=== PATIENT | male | born 2000 | race Caucasian/White ===

== ENCOUNTER 2023-04-11 13:03 | Outpatient (CLI) | payer OTHER, BC, SELFPAY | END 2023-04-11 13:04 | disposition home or self-care (01) | LOC: RAD 13:04 | PROVIDERS: Visit Provider Internal Medicine | DX: I48.91 Unspecified atrial fibrillation (principal); R00.2 Palpitations | CPT/HCPCS: 93306 ==

== ENCOUNTER 2024-12-14 12:13 | Emergency (ER) | payer OTHER, SELFPAY ==
--- OUTSIDE RECORDS SUMMARY | 2024-12-14 12:15 | XMS_ITS | Encounter Summary ---
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 Date/Time Encounter Type Encounter Description Reason Provider Source Jul 06, 2024 11:30 AM OFFICE O/P EST MOD 30 MIN [facility] ICD-10-CM F41.1 Generalized anxiety disorder DAVID TREVINO Encounter Template Text not used by [place] Assessments - Encounter Diagnoses This section includes the primary and secondary diagnoses documented for the Encounter. Date/Time Primary/Secondary Diagnosis Diagnosis Name Provider Source Jul 06, 2024 12:09 PM PRIMARY Generalized anxiety disorder [facility] Jul 06, 2024 12:09 PM SECONDARY Alcohol abuse, uncomplicated [facility] Jul 06, 2024 12:09 PM SECONDARY Major depressive disorder, single episode, unspecified DAVID TREVINO [facility] Plan of Treatment: Future Appointments (+ 6 months) and Future Tests (+/- 45 days) The Plan of Treatment section includes future care activities for the patient from all [place] treatmentfacilities. This section includes future appointments and future orders which are active, pending or scheduled. Future Appointments This section includes appointments that were scheduled to occur 6 months from the date of the Encounter, up to a maximum of 20 appointments. The data comes from all [place] treatment facilities. Appointment Date/Time Appointment Type Appointme nt Facility Name Jul 07, 2024 08:00 AM [facility] Aug 21, 2024 08:00 AM [facility] Aug 21, 2024 02:00 PM [facility] Oct 21, 2024 08:00 AM [facility] Social History: Smoking Status (Most current) and Tobacco Use (All prior to encounter date) This section includes the most current, and the historical, smoking and tobacco- related health factors from the [place] facility where the Encounter took place. Current Smoking Status This section includes the most current smoking, or tobacco-related health factor, from the [place] facility where the Encounter took place. Date/Time Current Smoking Status Comment Facil ity Jun 30, 2024 12:30 PM VA-TOBACCO USE FORMER CIGARETTES [facility] Tobacco Use History This section includes a history of the smoking, or tobacco-related health factors, that were collected on or before the date of the Encounter. The data comes from the [place] facility where the Encounter took place. Date/Time Smoking Status/Tobacco Use Comment F acility Jun 30, 2024 12:30 PM VA-TOBACCO USE EVERY DAY OTHER T [facility] Jun 30, 2024 12:30 PM VA-TOBACCO USE FORMER CIGARETTES [facility] Feb 27, 2023 10:00 AM VA-TOBACCO FORMER USER [facility] Feb 27, 2023 10:00 AM VA-TOBACCO QUIT < 1 YEAR [facility] Encounter Notes: All associated encounter notes This section contains the clinical notes associated to the Encounter. Date/Time Encounter Note(s) Provider Source Jul 06, 2024 06:48 AM PSYCHIATRY E & M N OTE: LOCAL TITLE: PSYCHIATRIC EVALUATION & MANAGEMENT STANDARD TITLE: PSYCHIATRY E & M NOTE DATE OF NOTE: JUL 06, 2024@06:48 ENTRY DATE: JUL 06, 2024@06:48:24 AUTHOR: DAVID TREVINOIGNER: URGENCY: STATUS: COMPLETED PSYCHIATRIC EVALUATION AND MANAGEMENT FOLLOW UP VISIT Duration: 30 minutes Time spent performing psychotherapy services: 16-30 minutes Visit conducted by [place] [facility] synchronous telehealth. verbal consent obtained. Location/emergency number confirmed. Environment surveyed and all participants identified. Virtual conference room locked. IDENTIFICATION: 23 year old [place] (50% MDD) male kept appt in [facility] clinic for voluntary psychiatric med management/supportive therapy follow up last appt Jun 03. The electronic medical record was reviewed. Medication list reviewed/reconciled with . DIAGNOSIS: MIKE MDD Alcohol abuse HISTORY: with history MIKE/MDD. Initial CVT appt this psychiatrist May 04. 14 May 04 [place] State prescription monitoring site reviewed: No problematic activity noted. At last appt shared tapered to 10mg starting to notice some positive change. interest in playing video games is returning starting to play again and enjoying the games. completed sleep med questionnaire and returned yet to hear from them encouraged him to call them today. sleep continues to be non- restorative. He shared mood has been ok, anxiety still present. No abnormal involuntary muscle movements. Discussed has only been about 3 weeks since last appt and too early for med to be at peak benefit but encouraging that already noted change. Plan was to continue Escitalopram targeting anxiety and depression. expect further sx improvement in next 6 weeks, he will contact sleep med to continue workup. INTERVAL HISTORY: Jul 04 sleep med: mild DC recommended oral device Jul 04 [facility] NO SHOW Jul 05 pt contact: Check out sheet notes would like treatment for AUD. Agreed to discuss at next psychiatric appt Signed in early seen early At appt shared SSRI seemed to lose efficacy few weeks after initial benefit but chose to just take daily and wait to see. now feels that there is no benefit for anxiety and low mood. He has also had difficulty in relationship attrbutes to alcohol use she has told wy if he continues may end the relationship. No abnormal involuntary muscle movements. he describes chronic back and knee/feet pain with tingling and numbness also there.he has been drinking 3-4 seltzers 3-4x a week and on [facility] birthday used whiskey about 1/4 bottle stated was very drunk. he is interested in abstaining from alcohol or at least to minimize use. wants naltrexone trial. discussed importance to treat CD/he will contact sleep med for appt/referral for dental device. we discussed SSRI increase vs switch to SNRI he preferred SNRI trial. Sturkie agreed to [facility] follow up. GOALS: decrease anxiety resolve depression improve attention Current Symptoms: Sleep hours to fall asleep then not restorative hx sleep apnea/no nightmares, interest dulled, energy low, concentration hard to stay on task, appetite stable/weight stable. Chronic problematic worry, some muscle tension, some irritability. No SI/HI at this time/no history. weights and treadmill hour near daily exercise, vapes but no tobacco products, green tea or black tea once daily/no other caffeine products,3-4 drinks 3-4x weel hx problematic use, no use of recreational drugs/hx cannabis. Psych History: Apr 03 initial psychology [facility] dx MIKE and MDD No history of suicide attempts/no hospitalizations. 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 CURRENT MEDICATIONS: Active Outpatient Medications (including Supplies): Outpatient Medications Status ===== 1) CELECOXIB 200MG CAP TAKE ONE CAPSULE BY MOUTH EVERY ACTIVE DAY NEEDED FOR PAIN 2) CHOLECALCIF 25MCG (D3-1,000UNIT) TAB TAKE ONE TABLET ACTIVE BY MOUTH EVERY DAY VITAMIN D DAILY IN winter 3) DULOXETINE HCL 30MG EC CAP TAKE ONE CAPSULE BY MOUTH PENDING EVERY DAY FOR 10 DAYS, THEN TAKE TWO CAPSULES EVERY DAY 4) FLUTICASONE PROP 50MCG 120D NASAL INHL SPRAY 2 SPRAYS ACTIVE IN EACH NOSTRIL EVERY DAY NEEDED FOR CONGESTION 5) LORATADINE 10MG TAB TAKE ONE TABLET BY MOUTH EVERY ACTIVE DAY NEEDED FOR ALLERGIES 6) MULTIVITAMIN CAP/TAB TAKE 1 TABLET BY MOUTH EVERY DAY ACTIVE FOR SUPPLEMENT 7) NALTREXONE (EQV-REVIA) 50MG TAB TAKE ONE TABLET BY PENDING MOUTH EVERY DAY 8) NICOTINE POLACRILEX 2MG LOZENGE DISSOLVE 1 LOZENGE IN ACTIVE MOUTH EVERY 4 HOURS NEEDED TO QUIT TOBACCO 9) OMEPRAZOLE 20MG EC CAP TAKE ONE CAPSULE BY MOUTH ACTIVE EVERY DAY NEEDED FOR HEARTBURN Side Effects: denied Treatment Adherence: yes has phone reminder MEDICATION RECONCILIATION: At this visit reviewed the relevant medication list and communicated relevant medication updates with the patient/surrogate. MOST RECENT VITALS: Blood Pressure: 110/72 (06/30/2024 12:37) Pulse: 70 (06/30/2024 12:37) Temperature: 97.1 F [36.2 C] (06/30/2024 12:37) Weight: 221.2 lb [100.33 kg] (06/30/2024 12:37) Body Mass Index: 32.3 LABS REVIEWED THIS VISIT: Mar 03 AST 77/ALT 250 high, Vit D low 9, Mar 03 TSH normal range MUSCULOSKELETAL: Gait: not visible on video MENTAL STATUS EXAM: Alert and oriented to person, place and time. Appropriately groomed, appropriately dressed and appeared stated age. Did not appear to be in any acute distress or show any external indications of pain. appeared tired, able to stay on conversation, talkative, cooperative, and maintained good eye contact. Speech: normal rate/volume. Psychomotor activity: no agitation or slowing, no tics, tremors or other abnormal involuntary movements. Affect: restricted but reactive Mood: anxious. No suicidal or homicidal ideation. Thought processing: linear, logical, goal directed. Insight and judgment: intact. Risk assessment/category: Risk factors: MIKE, depression, sleep apnea, male, limited social support, relationship strain. Protective factors: no current or hx SI/HI, no intent, no plan, not option, no hx impulsive behavior, no legal issues, no financial issues, no significant loss, desire to live, be there for family, willing to seek help, motivated for treatment. PERCEIVED ACUTE SUICIDE RISK: Low acute - No current intent or recent suicide preparatory behaviors. Protective factors and coping strategies are present. PERCEIVED CHRONIC SUICIDE RISK: Low Chronic - Can identify strengths, activate and utilize resources, does not have chronic suicidal ideation or history of self-directed violence. Review of Systems: no complaints, except as above. ASSESSMENT: Sturkie with history of chronic anxiety and recurrent depression no past treatment, Apr 03 started individual therapy. Escitalopram lost efficacy for mood and anxiety. 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 AUD, hx cannabis use disorder, hx tobacco use disorder, no other chemical dependency issues. No genetic predisposition both bio-parents AUD. PATIENT EDUCATION provided this visit: Participate(s): Patient General Medication Education Participate(s) has been educated about the purpose of their medications, and the dose/frequency. They understood the risks and benefits of the medications as explained. They verbally agree to take the medications as prescribed and to inform me or other physicians if there are side effects, and to seek emergency medical care if serious side effects develop such as an allergic reaction, chest pain, or difficulty breathing. They were attentive during discussion, was given the opportunity to ask questions and verbalized understanding. Participant(s) indicates readiness to learn, verbalizes understanding, agreement and satisfaction with the treatment plan. Denies further questions. TREATMENT PLAN: Reviewed with treatment plan and medications. Risks benefits and side effects discussed including risk of suicidal ideation/behavior when starting new med, no opiates with naltrexone. Sturkie voiced understanding, agreed to continue treatment, and will notify if experiences any problems with medication. After discussion of options with we agreed to taper off Escitalopram and start Duloxetine targeting anxiety and depression and neuropathic pain, start Naltrexone for alcohol craving. agrees to take medication on daily basis and share benefits and side effects with provider. will maintain stable non-depressed mood, resolution of problematic worry/muscle tension/irritability, and maintain 6-8 hours restful sleep for 6/7 days a week with minimal disruption in daily activities 80% of time. Escitalopram 10mg daily until duloxetine increases to 60mg then reduce to 5mg a day for 10 days then stop Duloxetine 30mg a day for 10 days then increase to 60mg daily #120 rf=0 Naltrexone 50mg a day for alcohol craving #90 rf=1 Labs: none Return to [facility] clinic in 6 weeks (his preference) or sooner, if any problems arise. Reviewed crisis management and contact information. -------- TREATMENT PLAN / EDUCATION / SAFETY -------- Treatment goals are 1) to minimize and manage medication side effects, 2) decrease problematic symptoms and optimize wellness. Patient's overall Mental Health Treatment reviewed. Patient continues to benefit from psychiatric medications as documented. The patient has been told the purpose and side effects of the prescribed psychiatric medications. Supportive therapy to optimize wellness, including medications, will be done as indicated during visits by psychiatrist, and RN. Patient agrees to contact this clinic with any concerns prior to next appointment. Patient is aware of additional MH services that are available, including emergency room and [facility] options. This plan will be reviewed yearly with patient, or sooner if needs change. This plan was discussed with the patient who acknowledges agreement and understanding. /kun/ DAVID TREVINO MD PSYCHIATRIST Signed: 07/06/2024 12:09 DAVID TREVINO [facility]
--- OUTSIDE RECORDS SUMMARY | 2024-12-14 12:15 | XMS_ITS | Encounter Summary ---
Author Name [facility] [place] [facility] [place] Address [address] [place] [address] Care Team Providers Care Floriculturist Name Role Phone FERRARALALY Primary Care Provider Unavailabl e Selected Encounter This section includes the information on record at [place] for the Encounter. Date/Time Encounter Type Encounter Description Reason Provider Source Oct 21, 2024 08:00 AM PSYTX W PT W E/M [facility] - IND ICD-10-CM F41.1 Generalized anxiety disorder DAVID TREVINO Encounter Template Text not used by [place] Assessments - Encounter Diagnoses This section includes the primary and secondary diagnoses documented for the Encounter. Date/Time Primary/Secondary Diagnosis Diagnosis Name Provider Source Oct 21, 2024 08:44 AM PRIMARY Generalized anxiety disorder [facility] Oct 21, 2024 08:44 AM SECONDARY Alcohol abuse, uncomplicated [facility] Oct 21, 2024 08:44 AM SECONDARY Major depressive disorder, single episode, unspecified [facility] Plan of Treatment: Future Appointments (+ 6 months) and Future Tests (+/- 45 days) The Plan of Treatment section includes future care activities for the patient from all [place] treatmentfacilities. This section includes future appointments and future orders which are active, pending or scheduled. Future Appointments This section includes appointments that were scheduled to occur 6 months from the date of the Encounter, up to a maximum of 20 appointments. The data comes from all [place] treatment facilities. Appointment Date/Time Appointment Type Appointme nt Facility Name Jan 19, 2025 08:00 AM AM[facility] - [facility] Active, Pending, and Scheduled Orders This section includes a listing of several types of active, pending, and scheduled orders, including clinic medications orders, diagnostic test orders, procedure orders and consult orders; where the start date of the order is 45 days before the date of the Encounter or 45 days after the date of theEncounter. The data comes from all [place] treatment facilities. Test Date/Time Test Type Test Details Facility Name Sep 28, 2024 12:00 AM Laboratory - Chemi stry Order BASIC METABOLIC PANEL+MG PLASMA SP ONCE [facility] Sep 28, 2024 12:00 AM Laboratory - Chemi stry Order LIPID PANEL,NON-FASTING PLASMA SP [facility] Sep 28, 2024 12:00 AM Laboratory - Chemi stry Order TSH W/REFLEX TO FREE T4 PLASMA [facility] Sep 28, 2024 12:00 AM Laboratory - Chemi stry Order URIC ACID PLASMA [facility] Sep 28, 2024 12:00 AM Laboratory - Chemi stry Order AST/SGOT PLASMA [facility] Sep 28, 2024 12:00 AM Laboratory - Chemi stry Order ALT/SGPT PLASMA [facility] Sep 28, 2024 12:00 AM Laboratory - Chemi stry Order CBC & DIFF BLOOD [facility] Social History: Smoking Status (Most current) and Tobacco Use (All prior to encounter date) This section includes the most current, and the historical, smoking and tobacco- related health factors from the [place] facility where the Encounter took place. Current Smoking Status This section includes the most current smoking, or tobacco-related health factor, from the [place] facility where the Encounter took place. Date/Time Current Smoking Status Comment Facil ity Jun 30, 2024 12:30 PM VA-TOBACCO USE FORMER CIGARETTES [facility] Tobacco Use History This section includes a history of the smoking, or tobacco-related health factors, that were collected on or before the date of the Encounter. The data comes from the [place] facility where the Encounter took place. Date/Time Smoking Status/Tobacco Use Comment F acility Jun 30, 2024 12:30 PM VA-TOBACCO USE EVERY DAY OTHER T YPE [facility] Jun 30, 2024 12:30 PM VA-TOBACCO USE FORMER CIGARETTES [facility] Feb 27, 2023 10:00 AM VA-TOBACCO FORMER USER [facility] Feb 27, 2023 10:00 AM VA-TOBACCO QUIT < 1 YEAR [facility] Encounter Notes: All associated encounter notes This section contains the clinical notes associated to the Encounter. Date/Time Encounter Note(s) Provider Source Oct 21, 2024 06:36 AM PSYCHIATRY E & M N OTE: LOCAL TITLE: PSYCHIATRIC EVALUATION & MANAGEMENT STANDARD TITLE: PSYCHIATRY E & M NOTE DATE OF NOTE: OCT 21, 2024@06:36 ENTRY DATE: OCT 21, 2024@06:36:38 AUTHOR: DAVID TREVINOER: URGENCY: STATUS: COMPLETED PSYCHIATRIC EVALUATION AND MANAGEMENT FOLLOW UP VISIT Duration: 30 minutes Time spent performing psychotherapy services: 16-30 minutes Visit conducted by [place] [facility] synchronous telehealth. Garrison verbal consent obtained. Location/emergency number confirmed. Environment surveyed and all participants identified. Virtual conference room locked. IDENTIFICATION: 24 year old [place] (50% MDD) male kept appt in [facility] clinic for voluntary psychiatric med management/supportive therapy follow up last appt Sep 05. The electronic medical record was reviewed. Medication list reviewed/reconciled with . DIAGNOSIS: MIKE MDD Alcohol abuse HISTORY: with history MIKE/MDD. Initial CVT appt this psychiatrist May 04. May 04 [facility] prescription monitoring site reviewed: No problematic activity noted. At last appt shared has not been taking the naltrexone regularly stated holidays and family get togethers involve alcohol, since then has noted drinking has decreased about 50% w/o naltrexone. he wants to keep med active as yet to decide if wants to be more aggressive to control use. switched to duloxetine has been noting improvement in mood and anxiety over time, still not back to normal but better. Not sleeping well, not restorative finds tired w/o cause and lacking motivation/discussed impact untreated DC/he requested sleep med number and will call for appt as last note indicated plan for him to sit down with provider to discuss treatment. he preferred no med changes at this time/likely further benefit with duloxetine over next 6 weeks. Plan was to continue Duloxetine targeting anxiety and depression and neuropathic pain, Naltrexone for alcohol craving. INTERVAL HISTORY: Oct 06 clinical triage: Roopa would like to discuss with his MH provider new symptoms where he is noticing anger issues appearing x3 weeks now without alcohol involvement. states he is finding it hard to hold back comments to peers but denies issues with superiors. Roopa has decreased his alcohol intake since last visit, states his anxiety is about the same - steady flow but feels that he is able to deal with it at present, and depression that is about the same or slightly improved - stating not currently on his mind that much since his feelings of wishing he was or could go to sleep and not wake up - which last occurred about a couple weeks before last talk with Dr. Caba. Roopa states he is getting about 5-6 hours of sleep at night and sometimes feels like it's enough other times still tired and has been taking gummies with THC 1-2 every 2 weeks or less which helps with his sleep but causes him to feel groggy in the morning but reports it does help with anxiety and panic attacks. [facility] in mood and anxiety with duloxetine at 60mg, still uses THC gummy for break through anxiety in evening prior to sleep still gets angry at others with little provocation/no violence. not using etoh not using naltrexone will remove from active list. Has tried duloxetine 90mg in past did not tolerate/discussed options will retry 90mg dose/if not tolerated add aripiprazole. No abnormal involuntary muscle movements. Roopa agreed to [facility] follow up. GOALS: decrease anxiety resolve depression improve attention Current Symptoms: Sleep hours to fall asleep then not restorative mild DC/no nightmares, interest ok, energy better, concentration better, appetite stable/weight down 8lbs trying. some anxiety with worry, some muscle tension, still with irritability. No SI/HI at this time/no history. weights and treadmill hour near daily exercise, vapes but no tobacco products, green tea or black tea once daily/no other caffeine products, last use over a month ago history of 3-4 drinks 3-4x week past problematic use, no use of recreational drugs/past cannabis. Psych History: Apr 03 initial psychology [facility] diagnosed MIKE and MDD. No history of suicide attempts/no hospitalizations. 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 CURRENT MEDICATIONS: Active Outpatient Medications (including Supplies): Outpatient Medications Status 1) CELECOXIB 200MG CAP TAKE ONE CAPSULE BY MOUTH EVERY DAY ACTIVE NEEDED Indication: FOR PAIN 2) CHOLECALCIF 25MCG (D3-1,000UNIT) TAB TAKE ONE TABLET BY ACTIVE MOUTH EVERY DAY VITAMIN D DAILY IN WINTER MONTHS Indication: FOR VITAMIN D 3) DULOXETINE HCL 30MG EC CAP TAKE THREE CAPSULES BY MOUTH ACTIVE EVERY DAY Indication: FOR ANXIETY 4) FLUTICASONE PROP 50MCG 120D NASAL INHL SPRAY 2 SPRAYS IN ACTIVE EACH NOSTRIL EVERY DAY NEEDED Indication: FOR CONGESTION 5) LORATADINE 10MG TAB TAKE ONE TABLET BY MOUTH EVERY DAY ACTIVE NEEDED Indication: FOR ALLERGIES 6) MULTIVITAMIN CAP/TAB TAKE 1 TABLET BY MOUTH EVERY DAY ACTIVE Indication: FOR SUPPLEMENT 7) NICOTINE POLACRILEX 2MG LOZENGE DISSOLVE 1 LOZENGE IN MOUTH ACTIVE EVERY 4 HOURS NEEDED Indication: TO QUIT TOBACCO 8) OMEPRAZOLE 20MG EC CAP TAKE ONE CAPSULE BY MOUTH EVERY DAY ACTIVE NEEDED Indication: FOR HEARTBURN Side Effects: denied Treatment Adherence: as above MEDICATION RECONCILIATION: At this visit reviewed the [...] D low 9, Mar 03 TSH normal range. MUSCULOSKELETAL: Gait: not visible on video MENTAL STATUS EXAM: Alert and oriented to person, place and time. Appropriately groomed, appropriately dressed and appeared stated age. Did not appear to be in any acute distress or show any external indications of pain. appeared tired, pleasant, attentive, cooperative, and maintained good eye contact. Speech: normal rate/volume. Psychomotor activity: no agitation or slowing, no tics, tremors or other abnormal involuntary movements. Affect: restricted but reactive Mood: ok. No suicidal or homicidal ideation. Thought processing: linear, logical, goal directed. Insight and judgment: intact. Risk assessment/category: Risk factors: MIKE, depression, sleep apnea, male, limited social support, relationship strain. Protective factors: no current or past SI/HI, no intent, no plan, not option, no history impulsive behavior, no legal issues, no financial [...] Systems: no complaints, except as above. ASSESSMENT: with history of chronic anxiety and recurrent depression no past treatment, Apr 03 started individual therapy. Escitalopram lost efficacy for mood and anxiety, partial benefit duloxetine 60mg. 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 AUD, history cannabis use disorder and tobacco use disorder, no other chemical dependency [...] PLAN: Reviewed with treatment plan and medications. voiced understanding, agreed to continue treatment, and will notify if experiences any problems with medication. After discussion of options with we agreed to continue Duloxetine targeting anxiety and depression and neuropathic pain retry 90mg dose. if not tolerated would add Aripiprazole low dose. Garrison agrees to take medication on daily basis and share benefits and side effects with provider. Garrison will maintain stable non-depressed mood, resolution of problematic worry/muscle tension/irritability, and maintain 6-8 hours restful sleep for 6/7 days a week with minimal disruption in daily activities 80% of time. Duloxetine 30mg take 90mg daily adequate supply Labs: none Return to [facility] clinic in 6 weeks (his preference) or sooner, if any problems arise. Reviewed crisis management and contact information. -------- MH TREATMENT PLAN / EDUCATION / SAFETY -------- [...] understanding. /kun/ DAVID TREVINO MD PSYCHIATRIST Signed: 10/21/2024 08:44 DAVID TREVINO [facility]
--- OUTSIDE RECORDS SUMMARY | 2024-12-14 12:16 | XMS_ITS | Continuity of Care Document ---
Author Name [facility] Organization [facility] Care Team Providers Care Extern Name Role Phone [facility] Unavailable Unavailable Problems Combined list of problems from Department of Defense and Veterans Affairs facilities. It does not include entries that were removed or entered in error. Problem Status Onset Date Problem Type Date of Resolution Comments Source Paroxysmal Atrial Fibrillation ([facility] [id number]) Active 01/02/20 23 Condition Jun 30, 2024 Entered By: LALY FERRARA Comment: [facility] records sent by fax is reviewed and will be scanned to chartNov 2023 Entered By: LALY FERRARA Comment: see 09/18/23 result letter for 03/2023 ECHO from [place] [facility] is scannedFeb 2023 Entered By: LALY FERRARA Comment: Normal LVEF [facility] Tinea corporis Active 11/09/19 18 Condition DoD Encounter for examination of ears and hearing without abnormal findings Active 10/04/19 18 Condition DoD Encounter for screening for intestinal infectious diseases Active 06/16/20 17 Condition DoD No Known Problems Active Condition Unkn own Organization Unspecified superficial injury of left little finger Active Condition DoD Nondisplaced fracture of body of scapula, right shoulder Active Condition DoD Alcohol abuse Active Condition [facility] Allergic Rhinitis ([facility] [id number]) Active Condition [facility] Body mass index 30+ - obesity Active Condition [facility] Chronic pain Active Condition Jun 30, 2024 Entered By: LALY FERRARA Comment: TOTAL SC- 90% ; LUMBOSACRAL OR CERVICAL STRAIN (20%-SC)Jun 30, 2024 Entered By: LALY FERRARA Comment: LIMITED MOTION OF WRIST (10%-SC)Jun 30, 2024 Entered By: LALY FERRARA Comment: REMOVAL OF RIB(S) (10%-SC)Jun 30, 2024 Entered By: LALY FERRARA Comment: LIMITED MOTION OF WRIST (10%-SC)Jun 30, 2024 Entered By: LALY FERRARA Comment: LIMITED MOTION OF ANKLE (10%-SC)Jun 30, 2024 Entered By: LALY FERRARA Comment: PARALYSIS OF ULNAR NERVE (10%-SC)Jun 30, 2024 Entered By: LALY FERRARA Comment: LIMITED FLEXION OF KNEE (10%-SC)Jun 30, 2024 Entered By: LALY FERRARA Comment: LIMITATION ON MOTION, RING OR LITTLE FINGER (0%-SC)Jun 30, 2024 Entered By: LALY FERRARA Comment: PARALYSIS OF SCIATIC NERVE (10%-SC) [facility] elevated uric acid Active Condition [facility] Family social history Active Condition Feb 27, 2023 Entered By: LALY FERRARA Comment: Moved from [place] to Live with Girl Friend( works at [employer])Feb 27, 2023 Entered By: LALY FERRARA 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[place] Entered By: LALY FERRARA Comment: QUIT TOBACCO AFTER Service, <100cigs in his life timeNov 2023 Entered By: LALY FERRARA Comment: Alcohol 2-3/day& upto 12 per week, some times 9 drinks/dayJul 2022 Entered By: LALY FERRARA Comment: Still born baby with Delfino 10/2021Jul 2022 Entered By: LALY FERRARA Comment: Mom is in her late 40's, DM, Dad was in 40's Alcoholic CIRRHOSISJul 2022 Entered By: LALY FERRARA Comment: Younger Sister and Brother are healthyJul 2022 Entered By: LALY FERRARA Comment: was 6 when he lost his dadJul 2022 Entered By: LALY FERRARA Comment: STARTED VAPES OR E CIGARETTES AUG 2017Jul 2022 Entered By: LALY FERRARA Comment: girl friend is on control nowNov 2023 Entered By: LALY FERRARA Comment: Beverage of choice is whiteclaus low calorie and 5% alcohol malted drink [facility] Gastroesophageal reflux disease Active Condition [facility] Generalized anxiety disorder Active Condition [facility] History of surgery Active Condition N 2023 Entered By: LALY FERRARA Comment: S/P RIB EXCISION [facility] Hyperlipidemia (SCT 73630276) Active Condition [facility] Liver enzymes abnormal Active Condition [facility] Major depressive disorder Active Condition Jun 30, 2024 Entered By: LALY FERRARA Comment: TOTAL SC-90%:MAJOR DEPRESSIVE DISORDER (50%-SC) [facility] Nicotine dependence Active Condition Feb 27, 2023 Entered By: LALY FERRARA Comment: USES E CIGS [facility] Obstructive Sleep Apnea of Adult ([facility]CT 4049731791899) Active Condition Jun 30, 2024 Entered By: LALY FERRARA Comment: TOTAL SC-90%:SLEEP APNEA SYNDROMES (30%-SC)Mar 15, 2023 Entered By: LALY FERRARA Comment: Seen in Sleep clinic-CPAP recommended [facility] 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 Mar 15, 2023 Entered By: LALY FERRARA Comment: ZIO Completed, see 03/15/23 letter for details [facility] Tinnitus Active Condition Jun 30 Entered By: LALY FERRARA Comment: TOTAL SC-90%:TINNITU S (10%-SC) [facility] Varicocele Active Condition Jun 30 Entered By: LALY FERRARA Comment: TOTAL SC-90%:VARICOC MONSERRAT/HYDROCELE (0%-SC) [facility] Vitamin D Deficiency (SCT [id number]) Active Condition [facility] Diagnosis: ICD-10-CM F41.1 Generalized anxiety disorder Active Diagnosis [facility] Diagnosis: ICD-10-CM Z23 Encounter for immunization Active Diagnosis [facility] Diagnosis: ICD-10-CM Z00.01 Encounter for general adult medical exam w abnormal findings Active Diagnosis [facility] Diagnosis: ICD-10-CM G47.33 Obstructive sleep apnea (adult) (pediatric) Active Diagnosis [facility] Medications Combined list of outpatient medications from Department of Defense and Veterans Affairs facilities.Medications provided include 1) outpatient medications from the last 15 months, and 2) patient-reported medications. Medication Details Route Status Patient Instructions Prescription Expires Prescription Number Last Dispense Date Ordering Provider Order Date Order Qty Source CELECOXIB 200MG CAP TAKE ONE CAPSULE BY MOUTH EVERY DAY NEEDED FOR PAIN ORAL ACTIVE 07/01/2025 [id number] GAB FERRARA S 2023 30 [facility] CHOLECALCIF MANUEL 25MCG (1,000UNIT) TAB TAKE ONE TABLET BY MOUTH EVERY DAY VITAMIN D DAILY IN WINTER MONTHS ORAL ACTIVE 07/01/2025 [id number] 5 GAB FERRARA S 2023 100 [facility] DULOXETINE HCL 30MG CAP,EC TAKE THREE CAPSULES BY MOUTH EVERY DAY FOR ANXIETY ORAL ACTIVE 09/18/2025 [id number] 5 DO GILDA TREVINO 2024 270 [facility] DULOXETINE HCL 30MG CAP,EC TAKE ONE CAPSULE BY MOUTH EVERY DAY FOR 10 DAYS, THEN TAKE TWO CAPSULES EVERY DAY FOR ANXIETY ORAL DISCONT INUED (EDIT) 09/09/2024 [id number] 4 DO GILDA TREVINO 2023 120 [facility] DULOXETINE HCL 60MG CAP,EC TAKE ONE CAPSULE BY MOUTH EVERY DAY FOR ANXIETY ORAL DISCONT INUED (EDIT) 08/22/2025 [id number] 5 DO GILDA TREVINO 2024 90 [facility] ESCITALOPRA M OXALATE 10MG TAB TAKE ONE TABLET BY MOUTH EVERY DAY FOR ANXIETY ORAL 05/28/2024 [id number] 4 DO LEOPOLDO TREVINOLAS 2022 90 [facility] FLUTICASONE PROPIONATE 50MCG/SPRAY SOLN,NASAL, 16GM SPRAY 2 SPRAYS IN EACH NOSTRIL EVERY DAY NEEDED FOR CONGESTI ON NASAL ACTIVE 07/01/2025 [id number] 4 GAB FERRARA 2023 3 [facility] LORATADINE 10MG TAB TAKE ONE TABLET BY MOUTH EVERY DAY NEEDED FOR ALLERGIE S ORAL ACTIVE 07/01/2025 [id number] 5 GAB FERRARA 2023 90 [facility] MULTIVITAMI NS CAP/TAB TAKE 1 TABLET BY MOUTH EVERY DAY FOR SUPPLEME NT ORAL ACTIVE 07/01/2025 [id number] 4 GAB FERRARA VT S 2023 100 [facility] NALTREXONE (EQV-REVIA) 50MG TAB TAKE ONE TABLET BY MOUTH EVERY DAY TO REDUCE CRAVINGS ORAL DISCONT INUED BY PROVIDE R 07/07/2025 [id number] 4 DO GILDA TREVINO 2023 90 [facility] Naprosyn 500 mg oral tablet 1 tab(s), Oral, BID, X 10 days, # 20 tab(s), 0 total refill(s ), Acute, 11/24/20 3:29:00 PM CDT, Route to [facility] Oral (given by mouth) Complet ed 11/24/2020 1 2020 20.0 [facility] NICOTINE POLACRILEX 2MG LOZENGE DISSOLVE 1 LOZENGE IN MOUTH EVERY 4 HOURS NEEDED TO QUIT TOBACCO ORAL ACTIVE 07/01/2025 [id number] 4 GAB FERRARA VT S 2023 72 [facility] OMEPRAZOLE 20MG CAP,EC TAKE ONE CAPSULE BY MOUTH EVERY DAY NEEDED FOR [place] N ORAL ACTIVE 07/01/2025 [id number] 4 GAB FERRARA VT S 2023 90 [facility] PreviDent 5000 Plus topical paste 1 appl(s), Topical, BID, Ramsey with pea sized amount morning and night for 2 minutes. Spit out excess and do not rinse. Do not eat or drink for 30 minutes. , # 51 g, 3 total refill(s ), [facility]ena [facility], Pharmacy : [facility] Topica l (on the skin) Ordered 2020 51.0 0457C-[facility] Zofran ODT 4 mg oral tablet, disintegrat ing 1 tab(s), Oral, every 8 hr, PRN nausea/v omiting, # 20 tab(s), 0 total refill(s ), Maintena nce, Route to [facility] Oral (given by mouth) Ordered 1 2020 20.0 [facility] Allergies, Adverse Reactions, Alerts Combined list of allergies from Department of Defense and Veterans Affairs facilities. It does not include entries that were removed or entered in error. Substance Category Reaction Severity Reaction type Status Date Reported Comments Source No Known Allergies Drug allergy (disorder) active 03/27/2017 [facility] Immunizations Combined list of available immunizations from the Department of Defense and Veterans Affairs facilities. 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 Status Comments Source HPV9 2 2024 TRE STALEY OLE JENNIFER LEFT DELTO ID [id number] 165 complet ed [facility] HPV9 1 2023 TRE STALEY OLE JENNIFER LEFT DELTO ID [id number] 165 complet ed [facility] INFLUENZA, SPLIT VIRUS, TRIVALENT, PF 2023 LORENZO ENAMORADO LEFT DELTO ID [id number] 140 complet ed [facility] COVID Vaccine Pfizer 2020 ESMERALDADEBRAA Anmol Ly tariq, left (delt oid) [id number] PFIZER complet ed COVID Vaccine Pfizer 01/30/21 Given [facility]24[facility] COVID-19 (PFIZER), MRNA, LNP-S, PF, 30 MCG/0.3 ML DOSE 2 2020 208 complet ed HISTORICA L INFORMATI ON - FROM PATIENT'S RECALL, [facility] COVID Vaccine Pfizer 2020 KIKA Ly tariq, left (delt oid) [id number] PFIZER complet ed COVID Vaccine Pfizer 12/08/20 Given [facility]24[facility] COVID-19 (PFIZER), MRNA, LNP-S, PF, 30 MCG/0.3 ML DOSE 1 2020 208 complet ed HISTORICA L INFORMATI ON - FROM PATIENT'S RECALL, [facility] influenza, injectable, quadrivalent 2018 [id number] 158 Seqirus complet ed influenza , injectabl e, quadrival ent 07/02/19 Given Ambulat ory Pharmac y influenza, injectable, quadrivalent, contains preservative 0 2018 [id number] 158 Seqirus (SEQ) complet ed influenza , injectabl e, quadrival ent, contains preservat jossie DoD typhoid vaccine, inactivated 2018 [id number] [employer] [place] complet ed typhoid vaccine, inactivat ed 12/05/18 Given Ambulat ory Pharmac y typhoid vaccine, parenteral, other than acetone-kille d, dried 1 2018 [id number] 41 [employer] ([facility]) complet ed typhoid vaccine, parentera l, other than acetone-k illed, dried DoD influenza, injectable, quadrivalent 2017 zzLef t Arm [id number] 158 Seqirus complet ed influenza , injectabl e, quadrival ent 06/13/18 Given Ambulat ory Pharmac y influenza, injectable, quadrivalent, contains preservative 1 2017 [id number] 1A 158 Seqirus (SEQ) complet ed influenza , injectabl e, quadrival ent, contains preservat jossie DoD hepatitis A-hepatitis B vaccine 2017 zzLef t Arm [id number] 104 GlaxoSmithKli ne complet ed hepatitis A-hepatit is B vaccine 01/02/18 Given Ambulat ory Pharmac y hepatitis A and hepatitis B vaccine 3 2017 LEYDI PARADA [id number] 104 SmithKline (SKB) complet ed hepatitis A and hepatitis B vaccine DoD influenza virus vaccine, inactivated 2017 [id number] Seqirus complet ed influenza virus vaccine, inactivat ed 12/04/17 Given Ambulat ory Pharmac y Influenza, injectable, Madin [place] Canine Kidney, quadrivalent with preservative 0 2017 [id number] Seqirus (SEQ) comple t ed Influenza , injectabl e, Madin [place] Canine Kidney, quadrival ent with preservat jossie DoD varicella virus vaccine 2016 zzLef t Arm [id number] Merck & Company Inc complet ed varicella virus vaccine 05/27/17 Given Ambulat ory Pharmac y measles/mumps /rubella [facility] [id number] 03 Merck & Company Inc complet ed measles/m umps/rube lla virus vaccine 05/27/17 Given Ambulat ory Pharmac y measles, mumps and rubella virus vaccine 1 2016 BRADEN SALAZAR [id number] Merck (MSD) complet ed measles, mumps and rubella virus vaccine DoD varicella virus vaccine 1 2016 BRADEN SALAZAR [id number] 21 Merck (MSD) complet ed varicella virus vaccine DoD TDAP 2016 115 complet ed HISTORICA L INFORMATI ON - FROM PATIENT'S RECALL, [facility] poliovirus vaccine, inactivated 2016 zPhil ht Arm [id number] sanofi pasteur complet ed polioviru s vaccine, inactivat ed 04/26/17 Given Ambulat ory Pharmac y hepatitis A-hepatitis B vaccine 2016 zMeli t Arm [id number] 104 GlaxoSmithKli ne complet ed hepatitis A-hepatit is B vaccine 04/26/17 Given Ambulat ory Pharmac y poliovirus vaccine, inactivated 1 2016 JUDY KELLER [id number] 10 Sanofi Pasteur ([facility]) complet ed polioviru s vaccine, inactivat ed DoD hepatitis A and hepatitis B vaccine 1 2016 JUDY KELLER [id number] 104 Smithine (SKB) complet ed hepatitis A and hepatitis B vaccine DoD varicella virus vaccine 2016 zzLef t Arm [id number] 21 GlaxoSmithKli ne complet ed varicella virus vaccine 04/04/17 Given Ambulat ory Pharmac y measles/mumps /rubella virus vaccine 2016 zPhil Arm [id number] 03 Merck & Company Inc complet ed measles/m umps/rube lla virus vaccine 04/04/17 Given Ambulat ory Pharmac y measles, mumps and rubella virus vaccine 1 2016 BRADEN SALAZAR [id number] 03 Merck (MSD) complet ed measles, mumps and rubella virus vaccine DoD varicella virus vaccine 1 2016 BRADEN SALAZAR [id number] 21 SmithKline (SKB) complet ed varicella virus vaccine DoD adenovirus vaccine, live 2016 [id number] 143 Teva Pharmaceutica complet ed adenoviru s vaccine, live 03/27/17 Given Ambulat ory Pharmac y tetanus, diphtheria, acellular pertu is 2016 zzRig Arm [id number] 115 GlaxoSmithKli ne complet ed tetanus, diphtheri a, acellular pertussis 03/27/17 Given Ambulat ory Pharmac y hepatitis A-hepatitis B vaccine 2016 zzLef t Arm [id number] 104 GlaxoSmithKli ne complet ed hepatitis A-hepatit is B vaccine 03/27/17 Given Ambulat ory Pharmac y meningococcal A,C,Y,W-135 (MCV4P) 2016 zzLef t Arm [id number] 114 sanofi pasteur complet ed meningoco ccal A,C,Y,W-1 35 (MCV4P) 03/27/17 Given Ambulat ory Pharmac y tuberculin purified protein derivative 2016 zzLef t Arm [id number] 96 sanofi pasteur complet ed tuberculi n purified protein derivativ e 03/27/17 Given Ambulat ory Pharmac y pneumococcal polysaccharid e, 23 valent [facility] [id number] 33 Merck & Company Inc complet ed pneumococ jocelyne polysacch aride, 23 valent 03/27/17 Given Ambulat ory Pharmac y pneumococcal polysaccharid e vaccine, 23 valent 1 2016 MYRNA HOLLAND [id number] 33 Merck (MSD) complet ed pneumococ jocelyne polysacch aride vaccine, 23 valent DoD tuberculin skin test; purified protein derivative solution, intradermal 1 2016 MYRNA HOLLAND [id number] 96 Sanofi Pasteur (PMC) complet ed tuberculi n skin test; purified protein derivativ e solution, intraderm al DoD hepatitis A and hepatitis B vaccine 1 2016 MYRNA HOLLAND [id number] 104 Animated [employer] (SKB) complet ed hepatitis A and hepatitis B vaccine DoD meningococcal polysaccharid e (groups A, C, Y and W-135) diphtheria toxoid conjugate vaccine (MCV4P) 1 2016 MYRNA HOLLAND [id number] 114 Sanofi Pasteur (PMC) complet ed meningoco ccal polysacch aride (groups A, C, Y and W-135) diphtheri a toxoid conjugate vaccine (MCV4P) DoD tetanus toxoid, reduced diphtheria toxoid, and acellular pertu is vaccine, adsorbed 1 2016 MYRNA HOLLAND [id number] [place], [place] [address] ([facility] complet ed tetanus toxoid, reduced diphtheri a toxoid, and acellular pertussis vaccine, adsorbed DoD Adenovirus, type 4 and type 7, live, oral 1 2016 MYRNA HOLLAND [id number] 4 143 Wote (BRR) complet ed Adenoviru s, type 4 and type 7, live, oral DoD PNEUMOCOCCAL POLYSACCHARID E [id number] 2016 33 complet ed HISTORICA L INFORMATI ON - FROM PATIENT'S RECALL, [facility] Results Combined list of recent chemistry, hematology and other laboratory results from Department of Defense and Veterans Affairs, ranging from 15 months to all on record, depending upon the facility. Order Name Results Value Reference Range Date Interpretation Specimen Comments Source MICROALB UMIN/CRE ATININE RATIO URINE CREATININE [MASS/VOLU ME] IN URINE 142.7 mg/dL 58.0 - 161.0 02/27 Specimen Type: URINE No comment entered. Ordering Provider: LALY FERRARA Report Released Date/Time: Feb 27, 2023 10:46 AM Reporting Lab: [facility] [phone] Performing Lab: [facility] [address] [facility] MICROALB UMIN/CRE ATININE RATIO URINE MICROALBUM IN/CREATIN INE [MASS RATIO] IN URINE 8.8 mg/g{cre at} 02/27 Specimen Type: URINE No comment entered. Ordering Provider: LALY FERRARA Report Released Date/Time: Feb 27, 2023 10:46 AM Reporting Lab: [facility] [address] Performing Lab: [facility] [address] [facility] MICROALB UMIN/CRE ATININE RATIO URINE MICROALBUM IN [MASS/VOLU ME] IN URINE 12.5 mg/L 02/27 Specimen Type: URINE No comment entered. Ordering Provider: LAYL FERRARA Report Released Date/Time: Feb 27, 2023 10:46 AM Reporting Lab: [facility] [address] Performing Lab: [facility] [address] [facility] BASIC METABOLI C PANEL+MG CREATININE [MASS/VOLU ME] IN SERUM OR PLASMA 0.8 mg/dL 0.7 - 1.2 02/27 Specimen Type: PLASMA Comment: Elevated triglycerid e result from a non-fasting specimen should be interpreted with caution. A fasting panel is recommended for accurate triglycerid es when trigs are >200 from a non-fasting specimen. Ordering Provider: LALY FERRARA Report Released Date/Time: Feb 27, 2023 10:46 AM Reporting Lab: [facility] [phone] Performing Lab: [facility] [phone] [facility] BASIC METABOLI C PANEL+MG UREA NITROGEN [MASS/VOLU ME] IN SERUM OR PLASMA 14 mg/dL 8 - 26 02/27 Specimen Type: PLASMA Comment: Elevated triglycerid e result from a non-fasting specimen should be interpreted with caution. A fasting panel is recommended for accurate triglycerid es when trigs are >200 from a non-fasting specimen. Ordering Provider: LALY FERRARA Report Released Date/Time: Feb 27, 2023 10:46 AM Reporting Lab: [facility] [phone] Performing Lab: [facility] [address] [facility] BASIC METABOLI C PANEL+MG GLUCOSE [MASS/VOLU ME] IN SERUM OR PLASMA 88 mg/dL 70 - 100 02/27 Specimen Type: PLASMA Comment: Elevated triglycerid e result from a non-fasting specimen should be interpreted with caution. A fasting panel is recommended for accurate triglycerid es when trigs are >200 from a non-fasting specimen. Ordering Provider: LALY FERRARA Report Released Date/Time: Feb 27, 2023 10:46 AM Reporting Lab: [facility] [address] Performing Lab: [facility] [address] [facility] BASIC METABOLI C PANEL+MG SODIUM [MOLES/VOL UME] IN SERUM OR PLASMA 138 mmol/L 136 - 145 02/27 Specimen Type: PLASMA Comment: Elevated triglycerid e result from a non-fasting specimen should be interpreted with caution. A fasting panel is recommended for accurate triglycerid es when trigs are >200 from a non-fasting specimen. Ordering Provider: LALY FERRARA Report Released Date/Time: Feb 27, 2023 10:46 AM Reporting Lab: [facility] [phone] Performing Lab: [facility] [address] [facility] BASIC METABOLI C PANEL+MG POTASSIUM [MOLES/VOL UME] IN SERUM OR PLASMA 4.2 mmol/L 3.5 - 5.1 02/27 Specimen Type: PLASMA Comment: Elevated triglycerid e result from a non-fasting specimen should be interpreted with caution. A fasting panel is recommended for accurate triglycerid es when trigs are >200 from a non-fasting specimen. Ordering Provider: LALY FERRARA Report Released Date/Time: Feb 27, 2023 10:46 AM Reporting Lab: [facility] [phone] Performing Lab: [facility] [phone] [facility] BASIC METABOLI C PANEL+MG CHLORIDE [MOLES/VOL UME] IN SERUM OR PLASMA 107 mmol/L 98 - 107 02/27 Specimen Type: PLASMA Comment: Elevated triglycerid e result from a non-fasting specimen should be interpreted with caution. A fasting panel is recommended for accurate triglycerid es when trigs are >200 from a non-fasting specimen. Ordering Provider: LALY FERRARA Report Released Date/Time: Feb 27, 2023 10:46 AM Reporting Lab: [facility] [address] Performing Lab: [facility] [phone] [facility] BASIC METABOLI C PANEL+MG CARBON DIOXIDE, TOTAL [MOLES/VOL UME] IN SERUM OR PLASMA 24 mmol/L 22 - 29 02/27 Specimen Type: PLASMA Comment: Elevated triglycerid e result from a non-fasting specimen should be interpreted with caution. A fasting panel is recommended for accurate triglycerid es when trigs are >200 from a non-fasting specimen. Ordering Provider: LALY FERRARA Report Released Date/Time: Feb 27, 2023 10:46 AM Reporting Lab: [facility] [address] Performing Lab: [facility] [address] [facility] BASIC METABOLI C PANEL+MG CALCIUM [MASS/VOLU ME] IN SERUM OR PLASMA 9.2 mg/dL 8.4 - 10.2 02/27 Specimen Type: PLASMA Comment: Elevated triglycerid e result from a non-fasting specimen should be interpreted with caution. A fasting panel is recommended for accurate triglycerid es when trigs are >200 from a non-fasting specimen. Ordering Provider: LALY FERRARA Report Released Date/Time: Feb 27, 2023 10:46 AM Reporting Lab: [facility] [phone] Performing Lab: [facility] [address] [facility] BASIC METABOLI C PANEL+MG MAGNESIUM [MASS/VOLU ME] IN SERUM OR PLASMA 2.1 mg/dL 1.6 - 2.6 02/27 Specimen Type: PLASMA Comment: Elevated triglycerid e result from a non-fasting specimen should be interpreted with caution. A fasting panel is recommended for accurate triglycerid es when trigs are >200 from a non-fasting specimen. Ordering Provider: LALY FERRARA Report Released Date/Time: Feb 27, 2023 10:46 AM Reporting Lab: [facility] [phone] Performing Lab: [facility] [phone] [facility] BASIC METABOLI C PANEL+MG ANION GAP IN SERUM OR PLASMA 7 mmol/L 5 - 15 02/27 Specimen Type: PLASMA Comment: Elevated triglycerid e result from a non-fasting specimen should be interpreted with caution. A fasting panel is recommended for accurate triglycerid es when trigs are >200 from a non-fasting specimen. Ordering Provider: LALY FERRARA Report Released Date/Time: Feb 27, 2023 10:46 AM Reporting Lab: [facility] [phone] Performing Lab: [facility] [address] [facility] BASIC METABOLI C PANEL+MG GLOMERULAR FILTRATION RATE/1.73 SQ M.PREDICTE D [VOLUME RATE/AREA] IN SERUM, PLASMA OR BLOOD BY CREATININE -BASED FORMULA (CKD-EPI 2020) >90 02/27 Specimen Type: PLASMA Comment: Elevated triglycerid e result from a non-fasting specimen should be interpreted with caution. A fasting panel is recommended for accurate triglycerid es when trigs are >200 from a non-fasting specimen. Ordering Provider: LALY FERRARA Report Released Date/Time: Feb 27, 2023 10:46 AM Reporting Lab: [facility] [address] Performing Lab: [facility] [address] JACOB GONSALVESOC HEMOGLOB IN A1C HEMOGLOBIN A1C/HEMOGL OBIN.TOTAL IN BLOOD 5.6 4.0 - 6.0 02/27 Specimen Type: BLOOD Comment: Values obtained from A1C measurement s can vary. For typical A1C assays, a reported value of 7.0 could actually be between 6.7 and 7.3 if measured by a reference method. A reported value of 9.0 could actually be between 8.7 and 9.3. Ref: http://[email or web address] ngsp.org/[place] Pdata.asp Ordering Provider: LALY FERRARA Report Released Date/Time: Feb 27, 2023 10:46 AM Reporting Lab: [facility] [phone] Performing Lab: [facility] [phone] [facility] LIPID PANEL,NO N-FASTIN G CHOLESTERO L [MASS/VOLU ME] IN SERUM OR PLASMA 226 mg/dL 02/27 H Specimen Type: PLASMA Comment: Elevated triglycerid e result from a non-fasting specimen should be interpreted with caution. A fasting panel is recommended for accurate triglycerid es when trigs are >200 from a non-fasting specimen. Ordering Provider: LALY FERRARA Report Released Date/Time: Feb 27, 2023 10:46 AM Reporting Lab: [facility] [address] Performing Lab: [facility] [address] [facility] LIPID PANEL,NO N-FASTIN G CHOLESTERO L IN HDL [MASS/VOLU ME] IN SERUM OR PLASMA 44 mg/dL 02/27 Specimen Type: PLASMA Comment: Elevated triglycerid e result from a non-fasting specimen should be interpreted with caution. A fasting panel is recommended for accurate triglycerid es when trigs are >200 from a non-fasting specimen. Ordering Provider: LALY FERRARA Report Released Date/Time: Feb 27, 2023 10:46 AM Reporting Lab: [facility] [address] Performing Lab: [facility] [address] [facility] LIPID PANEL,NO N-FASTIN G CHOLESTERO L IN LDL [MASS/VOLU ME] IN SERUM OR PLASMA BY CALCULATIO N 104 mg/dL 02/27 H Specimen Type: PLASMA Comment: Elevated triglycerid e result from a non-fasting specimen should be interpreted with caution. A fasting panel is recommended for accurate triglycerid es when trigs are >200 from a non-fasting specimen. Ordering Provider: LALY FERRARA Report Released Date/Time: Feb 27, 2023 10:46 AM Reporting Lab: [facility] [address] Performing Lab: [facility] [address] [facility] LIPID PANEL,NO N-FASTIN G CHOLESTERO L IN VLDL [MASS/VOLU ME] IN SERUM OR PLASMA BY CALCULATIO N 78 mg/dL 02/27 H Specimen Type: PLASMA Comment: Elevated triglycerid e result from a non-fasting specimen should be interpreted with caution. A fasting panel is recommended for accurate triglycerid es when trigs are >200 from a non-fasting specimen. Ordering Provider: LALY FERRARA Report Released Date/Time: Feb 27, 2023 10:46 AM Reporting Lab: [facility] [address] Performing Lab: [facility] [address] [facility] LIPID PANEL,NO N-FASTIN G CHOLESTERO L NON HDL [MASS/VOLU ME] IN SERUM OR PLASMA 182 mg/dL 02/27 H Specimen Type: PLASMA Comment: Elevated triglycerid e result from a non-fasting specimen should be interpreted with caution. A fasting panel is recommended for accurate triglycerid es when trigs are >200 from a non-fasting specimen. Ordering Provider: LALY FERRARA Report Released Date/Time: Feb 27, 2023 10:46 AM Reporting Lab: [facility] [address] Performing Lab: [facility] [address] [facility] LIPID PANEL,NO N-FASTIN G TRIGLYCERI DE [MASS/VOLU ME] IN SERUM OR PLASMA 389 mg/dL 02/27 H Specimen Type: PLASMA Comment: Elevated triglycerid e result from a non-fasting specimen should be interpreted with caution. A fasting panel is recommended for accurate triglycerid es when trigs are >200 from a non-fasting specimen. Ordering Provider: LALY FERRARA Report Released Date/Time: Feb 27, 2023 10:46 AM Reporting Lab: [facility] [address] Performing Lab: [facility] [address] [facility] CBC & DIFF LEUKOCYTES [#/VOLUME] IN BLOOD BY AUTOMATED COUNT 6.88 10*3/uL 4.0 - 11.0 02/27 Specimen Type: BLOOD Comment: Automated Differentia l Performed Ordering Provider: LALY FERRARA Report Released Date/Time: Feb 27, 2023 10:46 AM Reporting Lab: [facility] [address] Performing Lab: [facility] [address] [facility] CBC & DIFF ERYTHROCYT ES [#/VOLUME] IN BLOOD BY AUTOMATED COUNT 5.13 10*6/uL 4.6 - 6.2 02/27 Specimen Type: BLOOD Comment: Automated Differentia l Performed Ordering Provider: LALY FERRARA Report Released Date/Time: Feb 27, 2023 10:46 AM Reporting Lab: [facility] [address] Performing Lab: [facility] [address] [facility] CBC & DIFF HEMOGLOBIN [MASS/VOLU ME] IN BLOOD 15.0 g/dL 13.5 - 17.9 02/27 Specimen Type: BLOOD Comment: Automated Differentia l Performed Ordering Provider: LALY FERRARA Report Released Date/Time: Feb 27, 2023 10:46 AM Reporting Lab: [facility] [address] Performing Lab: [facility] [address] [facility] CBC & DIFF HEMATOCRIT [VOLUME FRACTION] OF BLOOD BY AUTOMATED COUNT 44.6 41 - 54 02/27 Specimen Type: BLOOD Comment: Automated Differentia l Performed Ordering Provider: LALY FERRARA Report Released Date/Time: Feb 27, 2023 10:46 AM Reporting Lab: [facility] [address] Performing Lab: [facility] [address] [facility] CBC & DIFF MCV [ENTITIC VOLUME] BY AUTOMATED COUNT 86.9 fL 80 - 100 02/27 Specimen Type: BLOOD Comment: Automated Differentia l Performed Ordering Provider: LALY FERRARA Report Released Date/Time: Feb 27, 2023 10:46 AM Reporting Lab: [facility] [address] Performing Lab: [facility] [address] [facility] CBC & DIFF MCH [ENTITIC MASS] BY AUTOMATED COUNT 29.2 pg 27 - 33 02/27 Specimen Type: BLOOD Comment: Automated Differentia l Performed Ordering Provider: LALY FERRARA Report Released Date/Time: Feb 27, 2023 10:46 AM Reporting Lab: [facility] [address] Performing Lab: [facility] [address] [facility] CBC & DIFF MCHC [MASS/VOLU ME] BY AUTOMATED COUNT 33.6 g/dL 32.0 - 37.5 02/27 Specimen Type: BLOOD Comment: Automated Differentia l Performed Ordering Provider: LALY FERRARA Report Released Date/Time: Feb 27, 2023 10:46 AM Reporting Lab: [facility] [address] Performing Lab: [facility] [address] [facility] CBC & DIFF PLATELETS [#/VOLUME] IN BLOOD BY AUTOMATED COUNT 298 10*3/uL 150 - 400 02/27 Specimen Type: BLOOD Comment: Automated Differentia l Performed Ordering Provider: LALY FERRARA Report Released Date/Time: Feb 27, 2023 10:46 AM Reporting Lab: [facility] [address] Performing Lab: [facility] [address] [facility] CBC & DIFF PLATELET MEAN VOLUME [ENTITIC VOLUME] IN BLOOD BY AUTOMATED COUNT 9.7 fL 7.4 - 10.4 02/27 Specimen Type: BLOOD Comment: Automated Differentia l Performed Ordering Provider: LALY FERRARA Report Released Date/Time: Feb 27, 2023 10:46 AM Reporting Lab: [facility] [address] Performing Lab: [facility] [address] [facility] CBC & DIFF NEUTROPHIL S/100 LEUKOCYTES IN BLOOD BY MANUAL COUNT 64.7 02/27 Specimen Type: BLOOD Comment: Automated Differentia l Performed Ordering Provider: LALY FERRARA Report Released Date/Time: Feb 27, 2023 10:46 AM Reporting Lab: [facility] [address] Performing Lab: [facility] [address] [facility] CBC & DIFF LYMPHOCYTE S/100 LEUKOCYTES IN BLOOD BY MANUAL COUNT 23.5 02/27 Specimen Type: BLOOD Comment: Automated Differentia l Performed Ordering Provider: LALY FERRARA Report Released Date/Time: Feb 27, 2023 10:46 AM Reporting Lab: [facility] [address] Performing Lab: [facility] [address] [facility] CBC & DIFF MONOCYTES/ 100 LEUKOCYTES IN BLOOD BY AUTOMATED COUNT 9.2 02/27 Specimen Type: BLOOD Comment: Automated Differentia l Performed Ordering Provider: LALY FERRARA Report Released Date/Time: Feb 27, 2023 10:46 AM Reporting Lab: [facility] [address] Performing Lab: [facility] [address] [facility] CBC & DIFF EOSINOPHIL S/100 LEUKOCYTES IN BLOOD BY AUTOMATED COUNT 1.6 02/27 Specimen Type: BLOOD Comment: Automated Differentia l Performed Ordering Provider: LALY FERRARA Report Released Date/Time: Feb 27, 2023 10:46 AM Reporting Lab: [facility] [address] Performing Lab: [facility] [address] [facility] CBC & DIFF BASOPHILS/ 100 LEUKOCYTES IN BLOOD BY MANUAL COUNT 0.7 02/27 Specimen Type: BLOOD Comment: Automated Differentia l Performed Ordering Provider: LALY FERRARA Report Released Date/Time: Feb 27, 2023 10:46 AM Reporting Lab: [facility] [address] Performing Lab: [facility] [address] [facility] CBC & DIFF ERYTHROCYT E DISTRIBUTI ON WIDTH [RATIO] BY AUTOMATED COUNT 12.0 11.5 - 14.5 02/27 Specimen Type: BLOOD Comment: Automated Differentia l Performed Ordering Provider: LALY FERRARA Report Released Date/Time: Feb 27, 2023 10:46 AM Reporting Lab: [facility] [address] Performing Lab: [facility] [address] [facility] CBC & DIFF LYMPHOCYTE S [#/VOLUME] IN BLOOD BY AUTOMATED COUNT 1.62 10*3/uL 1.0 - 4.0 02/27 Specimen Type: BLOOD Comment: Automated Differentia l Performed Ordering Provider: LALY FERRARA Report Released Date/Time: Feb 27, 2023 10:46 AM Reporting Lab: [facility] [address] Performing Lab: [facility] [address] [facility] CBC & DIFF MONOCYTES [#/VOLUME] IN BLOOD BY AUTOMATED COUNT 0.63 10*3/uL 0.1 - 1.0 02/27 Specimen Type: BLOOD Comment: Automated Differentia l Performed Ordering Provider: LALY FERRARA Report Released Date/Time: Feb 27, 2023 10:46 AM Reporting Lab: [facility] [address] Performing Lab: [facility] [address] [facility] CBC & DIFF NEUTROPHIL S [#/VOLUME] IN BLOOD BY AUTOMATED COUNT 4.45 10*3/uL 2.0 - 7.7 02/27 Specimen Type: BLOOD Comment: Automated Differentia l Performed Ordering Provider: LALY FERRARA Report Released Date/Time: Feb 27, 2023 10:46 AM Reporting Lab: [facility] [address] Performing Lab: [facility] [address] [facility] CBC & DIFF EOSINOPHIL S [#/VOLUME] IN BLOOD BY AUTOMATED COUNT 0.11 10*3/uL 0 - 0.5 02/27 Specimen Type: BLOOD Comment: Automated Differentia l Performed Ordering Provider: LALY FERRARA Report Released Date/Time: Feb 27, 2023 10:46 AM Reporting Lab: [facility] [address] Performing Lab: [facility] [address] [facility] CBC & DIFF BASOPHILS [#/VOLUME] IN BLOOD BY AUTOMATED COUNT 0.05 10*3/uL 0 - 0.2 02/27 Specimen Type: BLOOD Comment: Automated Differentia l Performed Ordering Provider: LALY FERRARA Report Released Date/Time: Feb 27, 2023 10:46 AM Reporting Lab: [facility] [address] Performing Lab: [facility] [address] [facility] CBC & DIFF IG(META,MY ANAM,PRO) 0.3 02/27 Specimen Type: BLOOD Comment: Automated Differentia l Performed Ordering Provider: LALY FERRARA Report Released Date/Time: Feb 27, 2023 10:46 AM Reporting Lab: [facility] [address] Performing Lab: [facility] [address] [facility] CBC & DIFF IMMATURE GRANULOCYT ES [PRESENCE] IN BLOOD BY AUTOMATED COUNT 0.02 10*3/uL 0 - 0.1 02/27 Specimen Type: BLOOD Comment: Automated Differentia l Performed Ordering Provider: LALY FERRARA Report Released Date/Time: Feb 27, 2023 10:46 AM Reporting Lab: [facility] [address] Performing Lab: [facility] [address] [facility] B 12 COBALAMIN (VITAMIN B12) [MASS/VOLU ME] IN SERUM OR PLASMA 631 pg/mL 213 - 816 02/27 Specimen Type: SERUM No comment entered. Ordering Provider: LALY FERRARA Report Released Date/Time: Feb 27, 2023 10:46 AM Reporting Lab: [facility] [address] Performing Lab: [facility] [address] [facility] IRON GROUP IRON [MASS/VOLU ME] IN SERUM OR PLASMA 183 ug/dL 65 - 175 02/27 H Specimen Type: PLASMA Comment: Elevated triglycerid e result from a non-fasting specimen should be interpreted with caution. A fasting panel is recommended for accurate triglycerid es when trigs are >200 from a non-fasting specimen. Ordering Provider: LALY FERRARA Report Released Date/Time: Feb 27, 2023 10:46 AM Reporting Lab: [facility] [address] Performing Lab: [facility] [address] [facility] IRON GROUP IRON BINDING CAPACITY [MASS/VOLU ME] IN SERUM OR PLASMA 335 ug/dL 250 - 425 02/27 Specimen Type: PLASMA Comment: Elevated triglycerid e result from a non-fasting specimen should be interpreted with caution. A fasting panel is recommended for accurate triglycerid es when trigs are >200 from a non-fasting specimen. Ordering Provider: LALY FERRARA Report Released Date/Time: Feb 27, 2023 10:46 AM Reporting Lab: [facility] [address] Performing Lab: [facility] [address] [facility] IRON GROUP FERRITIN [MASS/VOLU ME] IN SERUM OR PLASMA 187.9 ng/mL 21.8 - 274.7 02/27 Specimen Type: PLASMA Comment: Elevated triglycerid e result from a non-fasting specimen should be interpreted with caution. A fasting panel is recommended for accurate triglycerid es when trigs are >200 from a non-fasting specimen. Ordering Provider: LALY FERRARA Report Released Date/Time: Feb 27, 2023 10:46 AM Reporting Lab: [facility] [address] Performing Lab: [facility] [address] [facility] IRON GROUP IRON SATURATION 55 20 - 50 02/27 H Specimen Type: PLASMA Comment: Elevated triglycerid e result from a non-fasting specimen should be interpreted with caution. A fasting panel is recommended for accurate triglycerid es when trigs are >200 from a non-fasting specimen. Ordering Provider: LALY FERRARA Report Released Date/Time: Feb 27, 2023 10:46 AM Reporting Lab: [facility] [address] Performing Lab: [facility] [address] [facility] IRON GROUP TRANSFERRI N [MASS/VOLU ME] IN SERUM OR PLASMA 268 mg/dL 163 - 382 02/27 Specimen Type: PLASMA Comment: Elevated triglycerid e result from a non-fasting specimen should be interpreted with caution. A fasting panel is recommended for accurate triglycerid es when trigs are >200 from a non-fasting specimen. Ordering Provider: LALY FERRARA Report Released Date/Time: Feb 27, 2023 10:46 AM Reporting Lab: [facility] [address] Performing Lab: [facility] [address] [facility] ALT/SGPT ALANINE AMINOTRANS FERASE [ENZYMATIC ACTIVITY/V OLUME] IN SERUM OR PLASMA 250 U/L 02/27 H Specimen Type: PLASMA Comment: Elevated triglycerid e result from a non-fasting specimen should be interpreted with caution. A fasting panel is recommended for accurate triglycerid es when trigs are >200 from a non-fasting specimen. Ordering Provider: LALY FERRARA Report Released Date/Time: Feb 27, 2023 10:46 AM Reporting Lab: [facility] [address] Performing Lab: [facility] [address] [facility] AST/SGOT ASPARTATE AMINOTRANS FERASE [ENZYMATIC ACTIVITY/V OLUME] IN SERUM OR PLASMA 77 U/L 02/27 H Specimen Type: PLASMA Comment: Elevated triglycerid e result from a non-fasting specimen should be interpreted with caution. A fasting panel is recommended for accurate triglycerid es when trigs are >200 from a non-fasting specimen. Ordering Provider: LALY FERRARA Report Released Date/Time: Feb 27, 2023 10:46 AM Reporting Lab: [facility] [address] Performing Lab: [facility] [address] [facility] TSH W/REFLEX TO FREE T4 THYROTROPI N [UNITS/VOL UME] IN SERUM OR PLASMA 0.79 u[IU]/mL 0.35 - 4.94 02/27 Specimen Type: PLASMA Comment: Elevated triglycerid e result from a non-fasting specimen should be interpreted with caution. A fasting panel is recommended for accurate triglycerid es when trigs are >200 from a non-fasting specimen. Ordering Provider: LALY FERRARA Report Released Date/Time: Feb 27, 2023 10:46 AM Reporting Lab: [facility] [address] Performing Lab: [facility] [address] [facility] Infectio us Disease HIV-1/2 AG/AB 4G CDD LC NEGATIVE 02/06 Result Comment: Performed At: [facility] [id number] [place] [address] [address] [place] [address] KARYNA MATOSN PHD Ph:[phone] [place] [address] [facility] Source of Test.LC Gen Force Test (02/06/21 9:26 AM) 02/[address] [place] [address] [facility] TSH 0.914 uIU/mL 0.500 - 5.000 02/01 N Interpretiv e Data: This assay has no biotin interferenc e in serum concentrati ons up to 1200 ng/mL [address] [place] [address] [facility] Cholestero l Total 184 mg/dL 02/01 Interpretiv e Data: ADULT PEDIATRIC DESIRABLE: <200 <170 mg/dL BORDERLINE: 200-239 170-199 mg/dL HIGH: >239 >199 mg/dL [address] [place] [address] [facility] Glucose Fasting 95 mg/dL 75 - 100 02/[address] [place] [address] [facility] Troponin POC 0.000 ng/mL 0.000 - 0.030 11/[address] [place] [address] Coagulat ion D-Dimer (Quant) <200 ng/mLDDU 11/14 N Interpretiv e Data: I f the D-Dimer result is used to evaluate DVT or PE, the recommended n egative value is less than 230 ng/mL DDU. The D-Dimer result should not be u sed alone to rule in or rule out DVT/PE, but should be used in conjunction w ith the clinical presentatio n of the patient in the evaluation of venous t hromboembol ism in patients suspected of DVT and/or PE. [address] [place] [address] Hematolo gy Hemoglobin 13.5 g/dL 13.0 - 18.0 11/[address] [place] [address] Hematolo gy RBC 4.32 10^6/uL 4.40 - 5.87308 11/[address] [place] [address] Hematolo gy MCV 91.6 fL 80.0 - 100.0 11/[address] [place] [address] Hematolo gy Hematocrit 39.6 % 40.0 - 50.0 11/[address] [place], [place] [address]on Hematolo gy MCHC 34.0 g/dL 32.0 - 36.0 11/[address] [place] [address] Hematolo gy MCH 31.1 pg 26.0 - 34.0 11/[address] [place], [place] [address]on Hematolo gy WBC 7.3 10^3/uL 4.5 - 11.0103 11/[address] [place] [address] Hematolo gy Platelets 257 10^3/uL 150 - 897297 11/[address] [place], [place] [address]on Hematolo gy RDW 12.3 % 11.5 - 14.5 11/[address] [place], [place] [address]on Hematolo gy MPV 7.6 fL 6.5 - 10.0 11/[address] [place], [place] [address]on Hematolo gy Differenti al? Manual (11/14/20 12:09 PM) 11/[address] [place] [address] Chemistr y CRP UltraSens 0.550 mg/dL 0.000 - 0.747 11/[address] [place] [address] Infect us Disease RESP SYNCYTIAL VIRUS PCR Negative (11/14/20 12:09 PM) 11/[address] Disease Influenza A PCR Negative (11/14/20 12:09 PM) 11/[address] [place] [address] Disease Reason for Test? Diagnosi s (11/14/20 12:09 PM) 11/[address] [place] [address] Disease SARS-CoV-2 PCR Positive 6, 7 *CRIT* (11/14/20 12:09 PM) 11/14 Result Comment: Call back not required per facility protocol- B 11/14/2020 Interpretiv e Data: SARS-CoV-2 POSITIVE: The 2019 novel coronavirus (SARS-CoV-2 ) target nucleic acids are detected. The SARS-CoV-2 signal for the N2 nucleic acid target or signals for both nucleic acid targets (N2 and E) have a Ct within the valid range and endpoint above the minimum setting. SARS-CoV-2 PRESUMPTIVE POS: The 2019 novel coronavirus (SARS-CoV-2 ) nucleic acids may be present. Sample should be retested according to the Retest Procedure in Section 17.2. For samples with a repeated presumptive positive result, additional confirmator y testing may be conducted, if it is necessary to differentia te between SARS-CoV-2 and SARS-CoV-1 or other Sarbecoviru s currently unknown to infect humans, for epidemiolog ical purposes or clinical management. The SARS-CoV-2 signal for only the E nucleic acid target has a Ct within the valid range and endpoint above the minimum setting SARS-CoV-2 NEGATIVE:2018 novel coronavirus (SARS-CoV-2 ) target nucleic acids are not detected. The SARS-CoV-2 signals for two nucleic acid targets (N2 and E) do not have a Ct within the valid range and endpoint above the minimum setting +EUA comment The laboratory is certified under the Clinical Laboratory Improvement Program (CLIP) and [employer] s (CAP) as qualified to perform high complexity clinical laboratory testing.The se results were generated using the [facility] 2018-Novel Coronavirus (2018-nCoV) Real-time RT-PCR Diagnostic Panel. This assay is intended for the in vitroqualit ative detection of the SARS-CoV-2 (COVID-19) RNA in respiratory specimens from individuals meeting SARS-CoV-2 (COVID-19) clinical and/or epidemiolog ical criteria. Identificat ion of SARS-CoV-2 (COVID-19) is considered final. Negative results do not preclude SARS-CoV-2 (COVID-19) infection and should not be used as the sole basis for treatment or other patient management decisions. The [facility] 2018-Novel Coronavirus (2018-nCoV) Real-time RT-PCR Diagnostic Panel + is only for use under the Food and Drug Administrat ion's Emergency Use Authorizati on. [address] [place] [address] [facility] Disease Influenza B PCR Negative (11/14/20 12:09 PM) 11/[address] [facility] Glucose Lvl 98 mg/dL 75 - 139 11/[address] [facility] BUN 11.5 mg/dL 8.0 - 26.0 11/[address] [facility] Chloride 99 mmol/L 98 - 107 11/[address] [facility] CO2 25 mmol/L 22 - 32 11/[address] [facility] Sodium 134 mmol/L 136 - 145 11/[address] [place] [address] [facility] Potassium Lvl 3.9 mmol/L 3.5 - 5.1 11/[address] [facility] Albumin 4.6 g/dL 3.5 - 5.0 11/[address] [facility] Protein Total 7.6 g/dL 6.4 - 8.3 11/[address] [facility] Bilirubin Total 0.40 mg/dL 0.30 - 1.20 11/14 N Interpretiv e Data: : High: 10 mg/dL 30 days-17 yrs 0.3-1.2 mg/dL ADULT: 0.3-1.2 mg/dL [address] [place] [address] [facility] Alk Phos 98 U/L 38 - 126 11/[address] [place] [address] [facility] Bilirubin Direct <0.2 mg/dL 0.0 - 0.5 11/[address] [place] [address] [facility] A/G Ratio 2 1 - 2 11/[address] [facility] Calcium 9.5 mg/dL 8.9 - 10.3 11/[address] [facility] ALT 95 U/L 17 - 63 11/[address] [facility] AGAP 10 mmol/mL 6 - 16 11/[address] [facility] Creatinine Level 0.79 mg/dL 0.60 - 1.20 11/[address] [facility] AST 43 U/L 15 - 41 11/[address] [facility] Atyp Lymph Man 1 % 11/[address] [place] [address] [facility] Gogeb[place] Man 13 % 4 - 11 11/[address] [facility] Segs Man 78 % 40 - 80 11/[address] [facility] Lymph Man 8 % 15 - 45 11/[address] [place] [address] [facility] PLT Estimate Adequate (11/14/20 12:09 PM) 11/[address] [facility] RBC Morph Normal (11/14/20 12:09 PM) 11/[address] [facility] eGFR AA >60 mL/min/1 .73_m2 11/14 N [facility] eGFR Non-AA >60 mL/min/1 .73_m2 11/14 N [facility] Infectio us Disease SARS-CoV-2 PCR Negative 8 (08/30/20 1:04 PM) 08/30 N Interpretiv e Data: SARS-CoV-2 POSITIVE: The 2019 novel coronavirus (SARS-CoV-2 ) target nucleic acids are detected. The SARS-CoV-2 signal for the N2 nucleic acid target or signals for both nucleic acid targets (N2 and E) have a Ct within the valid range and endpoint above the minimum setting. SARS-CoV-2 PRESUMPTIVE POS: The 2019 novel coronavirus (SARS-CoV-2 ) nucleic acids may be present. Sample should be retested according to the Retest Procedure in Section 17.2. For samples with a repeated presumptive positive result, additional confirmator y testing may be conducted, if it is necessary to differentia te between SARS-CoV-2 and SARS-CoV-1 or other Sarbecoviru s currently unknown to infect humans, for epidemiolog ical purposes or clinical management. The SARS-CoV-2 signal for only the E nucleic acid target has a Ct within the valid range and endpoint above the minimum setting SARS-CoV-2 NEGATIVE:Th e 2019 novel coronavirus (SARS-CoV-2 ) target nucleic acids are not detected. The SARS-CoV-2 signals for two nucleic acid targets (N2 and E) do not have a Ct within the valid range and endpoint above the minimum setting +EUA comment The laboratory is certified under the Clinical Laboratory Improvement Program (CLIP) and [employer] (CAP) as qualified to perform high complexity clinical laboratory testing.The se results were generated using the CDC 2019-Novel Coronavirus (2019-nCoV) Real-time RT-PCR Diagnostic Panel. This assay is intended for the in vitroqualit ative detection of the SARS-CoV-2 (COVID-19) RNA in respiratory specimens from individuals meeting SARS-CoV-2 (COVID-19) clinical and/or epidemiolog ical criteria. Identificat ion of SARS-CoV-2 (COVID-19) is considered final. Negative results do not preclude SARS-CoV-2 (COVID-19) infection and should not be used as the sole basis for treatment or other patient management decisions. The CDC 2019-Novel Coronavirus (2019-nCoV) Real-time RT-PCR Diagnostic Panel + is only for use under the Food and Drug Administrat ion's Emergency Use Authorizati on. [address] [place] [address] Molecula r Infectio us Disease Reason for Test? Screenin g (08/30/20 1:04 PM) 08/[address] [place] [address] Vital Signs Combined list of inpatient and outpatient Vital Signs from Department of Defense and Veterans Affairs, ranging from 12 months to all on record, depending upon the facility. Vital Sign Value Date Comments Source Temperature Oral 37.3 Alice 11/14/2020 21:27:[address] [place] [address] Respiratory Rate 16 br/min 11/14/2020 21:27:[address] [place] [address] Peripheral Pulse Rate 94 bpm 11/14/2020 21:27:[address] [place] [address] Systolic Blood Pressure 130 mm[Hg] 11/15/19 21:27:[address] [place] [address] Diastolic Blood Pressure 71 mmol 021 21:27:[address] [place] [address] Mean Arterial Pressure, Calc 91 mm[Hg] 11/14/2020 21:27:[address] [place] [address] Temperature Oral 37.3 Alice 11/14/2020 20:11:[address] [place] [address] Peripheral Pulse Rate 91 bpm 11/14/2020 20:11:[address] [place] [address] Systolic Blood Pressure 119 mm[Hg] 11/15/19 20:11:[address] [place] [address] Diastolic Blood Pressure 68 mmol 021 20:11:[address] [place] [address] Mean Arterial Pressure, Calc 85 mm[Hg] 11/14/2020 20:11:[address] [place] [address] Respiratory Rate 16 br/min 11/14/2020 20:11:[address] [place] [address] Systolic Blood Pressure 138 mm[Hg] 11/15/19 21 18:47:00 [facility] Diastolic Blood Pressure 80 mmol 021 18:47:00 [facility] Peripheral Pulse Rate 118 bpm 11/14/2020 18:47:00 [facility] Respiratory Rate 20 br/min 11/14/2020 18:47:00 [facility] Temperature Oral 38.5 Alice 11/14/2020 18:47:00 [facility] SYSTOLIC BLOOD PRESSURE 110 06/30/20 24 12:37:27 [facility] DIASTOLIC BLOOD PRESSURE 72 024 12:37:27 [facility] PULSE OXIMETRY 97 06/30/2024 12:37:27 [facility] WEIGHT 221.2 06/30/2024 12:37:27 [facility] BMI 32 kg/m2 06/30/2024 12:37:27 [facility] PAIN 5 06/30/2024 12:37:27 [facility] HEIGHT 69.5 06/30/2024 12:37:27 [facility] TEMPERATURE 97.1 06/30/2024 12:37:27 [facility] PULSE 70 06/30/2024 12:37:27 [facility] RESPIRATION 18 06/30/2024 12:37:27 [facility] Encounters Combined list of: 1) Encounters from Department of Veterans Affairs facilities going backup to the last 18 months, not all [place] inpatient encounters are included; 2) Encounters from the Department of Defense facilities going backup to 280 months. Location Location Details Encounter Type Encounter Number Reason For Visit Attending Provider ADM Date DC Date Status Disposition Source [facility](LOBO smith) OUTPATIENT [id number] Notes Entered by: KATELYN ENRIQUE 26 Mar 2017 1524 ------- ------- ------- ------- -- SAMRA CARPENTER 03/26 Released w/o Limitations [facility](Mario VALENTINE Recruit Process ing) [facility](MCR D Recruit Processin g) OUTPATIENT [id number] Notes Entered by: Mario HARDEN 27 Mar 2017 0813 ------- ------- ------- ------- -- [facility] CLASS ALLA HARDEN 03/27 Released w/o Limitations [facility](M CRD Recruit Process ing) [facility](MCR D Optometry ) OUTPATIENT [id number] DAVID MASTERSON 03/29 Released w/o Limitations [facility]( CRD Optomet ry) [facility] D Recruit Processin g) OUTPATIENT [id number] T-3 VACCINE S RAYMOND WILSON 04/04 Released w/o Limitations [facility](M CRD Recruit Process ing) [facility](MCR D Recruit Sick Call) OUTPATIENT [id number] Cough x 3 days MAT SETH 04/11 Released with Work/Duty Limitations [facility](M CRD Recruit Sick Call) [facility](MCR D SALLY) OUTPATIENT [id number] left hand jose carloserat LYLE Daniel 04/23 Released with Work/Duty Limitations [facility](M CRD SALLY) [facility](MCR D Recruit Processin g) OUTPATIENT [id number] T-22 VACCINE S RAYMOND WILSON 04/26 Released w/o Limitations [facility](M CRD Recruit Process ing) [facility](31 ABC FP MHP) OUTPATIENT [id number] VOMITIN G/FEVER FREDELUCEMichael (LUCRECIA)KENJI 05/24 Sick at Home/Quarter s [facility](3 1 ABC FP MHP) [facility](MCR D Recruit Processin g) OUTPATIENT [id number] T-48 VACCINE S KEYLA OCAMPO 05/28 Released w/o Limitations [facility](M CRD Recruit Process ing) [facility](31 ABC FP MHP) OUTPATIENT [id number] EAN Lorenzo 06/18 Released w/o Limitations [facility](3 1 ABC FP MHP) [facility](MCR D Recruit Sick Call) OUTPATIENT [id number] COUGH/F EVER X 1 DAY MAT SETH Olga 06/19 Released w/o Limitations [facility](M CRD Recruit Sick Call) [facility] D Recruit Processin g) OUTPATIENT [id number] LIANNA BENI HERNANDEZ Mario 06/20 Released w/o Limitations [facility](M CRD Recruit Process ing) [facility] DARYL [facility](Oscar charles) OUTPATIENT [id number] Notes Entered by: CLAUDIA COHEN 27 Aug 2017 0750 ------- ------- ------- ------- -- JOCY Ontiveros 08/27 [facility] w/o Limitations [facility](Oscar charles) OUTPATIENT [id number] Notes Entered by: SAL TABOR 25 Sep 2017 0710 ------- ------- ------- ------- -- HEADACH E/LIGHT SENSITI JOCY BREEN 09/25 Released with Work/Duty Limitations [facility]([place]) 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 TRISTA RODRÍGUEZ 10/07 [facility] [place] [place]([place]) [facility](Oscar charles) OUTPATIENT [id number] Notes Entered by: SAL TABOR 07 Oct 2017 0828 ------- ------- ------- ------- -- VOMIT, SORE THROAT, JAYDE REYNA 10/07 Sick at Home/Quarter s [facility] [place] [facility](Vict oraraceli) [facility](Oscar charles) OUTPATIENT [id number] Notes Entered by: SAL TABOR 17 Oct 2017 0716 ------- ------- ------- ------- -- SORE THROAT/ COLD SORE TRISTA RODRÍGUEZ 10/17 Released w/o Limitations [facility] [place](Vict [place]y) [place]Oscar charles) OUTPATIENT [id number] Notes Entered by: CLAUDIA COHEN 08 Nov 2017 0628 ------- ------- ------- ------- -- pos TRISTA Marques 11/08 Released w/o Limitations [place](Vict [place]y) [facility](13 ABC Smart/Spo rts Medicine) OUTPATIENT [id number] Notes Entered by: MARTHA RUBY 19 Dec 2017 0741 ------- ------- ------- ------- -- ipu/ visit/l t wrist/08 15 [facility] CARMEN MUÑOZ 12/19 Released w/o Limitations [facility](1 3 ABC Smart/S ports Medicin e) [facility](13 ABC Smart/Spo rts Medicine) OUTPATIENT [id number] Notes Entered by: MARTHA RUBY 23 Dec 2017 0716 ------- ------- ------- ------- -- ipu/3rd visit/l t wrist/1 4 [facility] MELISSA MILTON V 12/23 Released with Work/Duty Limitations [facility](1 3 ABC Smart/S ports Medicin e) [facility](13 ABC Smart/Spo rts Medicine) OUTPATIENT [id number] Notes Entered by: Mitch ZARATE 24 Dec 2017 0740 ------- ------- ------- ------- -- L WRIST/ [facility] CARMEN MUÑOZ 12/24 Released w/o Limitations [facility](1 3 ABC Smart/S ports Medicin e) [facility](13 ABC FP MHP Green Team) OUTPATIENT [id number] Notes Entered by: Mario PARADA 02 Jan 2018 0842 ------- ------- ------- ------- -- HEP A/B VACCINE (TWINRI X) LEYDI PARADA 01/02 Released w/o Limitations [facility](1 3 ABC [facility] Green Team) [facility](13 ABC Smart/Spo rts Medicine) OUTPATIENT [id number] Notes Entered by: Linda MORRELL 03 Jan 2018 0737 ------- ------- ------- ------- -- ipu/6th visit/ left wrist/ 14 ISABEL Monique 01/03 Released with Work/Duty Limitations [facility](1 3 ABC Smart/S ports Medicin e) [facility](13 ABC Hearing Conservat ion) OUTPATIENT [id number] ANNUAL AND NEG LEONA HOLDER 05/06 Released w/o Limitations [facility](1 3 ABC Hearing Conserv ation) [facility](13A [facility] Team) OUTPATIENT [id number] 7TH ESB/ EPHA HUA ARAUJO 05/07 Released w/o Limitations [facility](1 3ABC 14[facility] Team) [facility](13A 14[facility] Team) OUTPATIENT [id number] 1 7TH ESB / FLU MICHELET RUELAS 06/13 Released w/o Limitations [facility](1 [address] [place] [address] Team) [facility](13 ABC Smart/Spo rts Medicine) OUTPATIENT [id number] Notes Entered by: MARTHA RUBY 25 Jul 2018 0833 ------- ------- ------- ------- -- ipu/1st visit/l t ankle 14 ISABEL Monique 07/25 Released w/o Limitations [facility](1 3 ABC Smart/S ports Medicin e) [facility](13 ABC Smart/Spo rts Medicine) OUTPATIENT [id number] Notes Entered by: Linda MORRELL 24 Mar 2019 0757 ------- ------- ------- ------- -- ipu/1st visit/ left ankle/ 14 ISABEL Monique A 03/24 Released w/o Limitations [facility](1 3 ABC Smart/S ports Medicin e) [facility](13 ABC Smart/Spo rts Medicine) OUTPATIENT [id number] Notes Entered by: MARTHA RUBY 24 Mar 2019 0832 ------- ------- ------- ------- -- ipu/lt foot per GEORGES Beaulieu 03/24 Released with Work/Duty Limitations [facility](1 3 ABC Smart/S ports Medicin e) [facility](13 ABC Smart/Spo rts Medicine) OUTPATIENT [id number] Notes Entered by: MARTHA RUBY 25 Mar 2019 0759 ------- ------- ------- ------- -- ipu/2nd visit/l t foot/14 janna ISABEL COBURN A 03/25 Released w/o Limitations [facility](1 3 ABC Smart/S ports Medicin e) [facility](13A 14Area [employer] Green Team) OUTPATIENT [id number] 7th esb DANIEL Holloway 05/07 Released w/o Limitations [facility](1 3ABC [facility] [employer] Green Team) [facility](13A [facility] [employer] Green Team) OUTPATIENT [id number] Notes Entered by: BEBO MCCLELLAN 02 Jul 2019 1032 ------- ------- ------- ------- -- 7 ESB IMMDELFINO BRUNER 07/02 Released w/o Limitations [facility](1 3ABC 14Area [employer] Green Team) [facility](CP Orthopedi cs) OUTPATIENT [id number] 7 fx ROHIT Pritchard 07/27 Released with Work/Duty Limitations [facility](C P Orthope dics) [facility](41a augusta [facility]) OUTPATIENT [id number] AD 720&721 STEFANO/EMH E (CONTRERAS) DEANDRE ÁLVAREZ 08/24 Released w/o Limitations [facility]([address] [place] [address]) [facility]([address] [place] [address]) OUTPATIENT [id number] AD STEFANO/EMH E (CONTRERAS) JOSE MARIA ROMERO 08/24 Released w/o Limitations [facility]([address] [place] [address]) [facility](CP Orthopedi cs) OUTPATIENT [id number] f/u R scapula fx MICHAELPAVEL LINDQUIST BIA 08/25 Released w/o Limitations [facility](C P Orthope dics) [facility]([address] [place] [address]) OUTPATIENT [id number] Notes Entered by: DEANDRE ÁLVAREZ 01 Oct 2019 1023 ------- ------- ------- ------- -- AD STEFANO 720&721 DEANDRE ÁLVAREZ 10/01 Released w/o Limitations [facility]([address] [place] [address]) [facility]([address] [place] [address]) OUTPATIENT [id number] Notes Entered by: MARIAM AVILES 01 Oct 2019 1032 ------- ------- ------- ------- -- AD STEFANO/EMH E paperwo MARIAM Ibarra 10/01 Released w/o Limitations [facility]([address] [place] [address]) [facility](33 Area Physical Therapy) OUTPATIENT [id number] Nondisp laced fractur e of body of scapula , right shoulde r, subsequ ent encount HUA Chopra 10/19 Released w/o Limitations [facility](3 3 Area Physica l Therapy ) [facility](13A BC 14Area [facility] Green Team) OUTPATIENT [id number] Notes Entered by: ASHWINI DONALDSON 04 Nov 2019 1417 ------- ------- ------- ------- -- ESB/LEF T PINKY TRAUMA WESLEY TELLO 11/03 Released with Work/Duty Limitations [facility](1 3ABC 14[facility] [employer] Team) [facility](CP Orthopedi cs) OUTPATIENT [id number] Notes Entered by: URBANO COLON 05 Nov 2019 0749 ------- ------- ------- ------- -- f/u left pinky; walk-in per ZARA Crowder 11/04 Released w/o Limitations [facility](C P Orthope dics) [facility](13A [facility] Team) TELE CONSULT [id number] Notes Entered by: LIZZY LYON 06 Nov 2019 0859 ------- ------- ------- ------- -- 7th ESB/ Sick call MELISSA ARREOLA 11/05 Other Not Elsewhere Classified [facility](1 [address] [place] [address] Jhon Team) [facility](CP Orthopedi cs) OUTPATIENT [id number] f/u left hand ZARA ELLIS 11/17 Released w/o Limitations [facility](C P Orthope dics) [facility](CP Orthopedi cs) OUTPATIENT [id number] 4 f/u left little finger distal tip avulsio n-usmi g [facility] pain ZARA ELLIS 01/25 Released w/o Limitations [facility](C P Orthope dics) [facility](CP Occupatio nal Therapy) OUTPATIENT [id number] Unspeci fied superfi cial injury of left little finger, subsequ ent encount MYRNA Mitchell 02/01 Released w/o Limitations [facility](C P Occupat ional Therapy ) [facility](13 ABC Occupatio nal Therapy) OUTPATIENT [id number] 02/15 Released w/o Limitations [facility](1 3 ABC Occupat ional Therapy ) [facility](13 ABC Hearing Conservat ion) OUTPATIENT [id number] ANNUAL (F) JOSÉ MIGUEL, LEONA D 04/08 Released w/o Limitations [facility](1 3 ABC Hearing Conserv ation) [facility](13A BC 14[facility] Jhon Team) OUTPATIENT [id number] Notes Entered by: Leland GANT 26 Apr 2020827 ------- ------- ------- ------- -- 7th ESB/ePH LALITHA COX 04/26 Released w/o Limitations [facility](1 3ABC 14[facility] Jhon Team) [place] [facility] Outpatient Encounter [id number] 06/20 [place] [facility] [place] [facility] UNLISTED PULMONARY SVC/PX [id number] Diagnos is: ICD-10- CM G47.33 Obstruc tive sleep apnea (adult) ([facility]) DAMEON EDWARD 06/21 [facility] [place] [facility] Outpatient Encounter [id number] Diagnos is: ICD-10- CM G47.33 Obstruc tive sleep apnea (adult) ([facility]) EDER FREEMAN S 07/01 [facility] [place] [place] [facility] ROLL OPERATOR STDY UNATTENDED [id number] Diagnos is: ICD-10- CM G47.33 Obstruc tive sleep apnea (adult) ([facility]) GRAYSON NOBLES 07/02 [facility] Outpatient Encounter [id number] 07/09 [facility] [place] [facility] PRO PHONE CALL 5-10 MIN [id number] Diagnos is: ICD-10- CM G47.33 Obstruc tive sleep apnea (adult) ([facility]) EDER FREEMAN S 07/09 [facility] [place] [facility] Outpatient Encounter [id number] 07/19 [place] [facility] [place] [facility] Outpatient Encounter [id number] 09/18 [place] [facility] [place] [facility] Outpatient Encounter [id number] 12/12 [place] [facility] [place] [facility] Outpatient Encounter [id number] 03/03 [place] [facility] OFFICE O/P EST HI 40 MIN [id number] Diagnos is: ICD-10- CM Z00.01 Encount er for general adult medical exam w abnorma l finding s RED FERRARA S 06/30 [facility] [place] [facility] Outpatient Encounter [id number] 06/30 [place] [facility] OFFICE O/P EST MOD 30 MIN [id number] Diagnos is: ICD-10- CM F41.1 General ized anxiety disorde r URIEL,ELBA GLAS 07/06 [facility] IMMUNIZATI ON ADMIN [id number] Diagnos is: ICD-10- CM Z23 Encount er for immuniz ation USMAN STALEY 07/07 [facility] OFFICE O/P EST MOD 30 MIN [id number] Diagnos is: ICD-10- CM F41.1 General ized anxiety disorde r DO URIELU GLAS 08/21 [facility] IMMUNIZATI ON ADMIN [id number] Diagnos is: ICD-10- CM Z23 Encount er for immuniz ation SUNNY STALYELE JENNIFER 08/21 [facility] [place] [facility] Outpatient Encounter [id number] 09/11 [place] [facility] [place] [facility] Out[facility] Encounter [id number] PAULINE TENORIO 09/16 [place] [facility] PSYTX W PT W E/M 30 MIN [id number] Diagnos is: ICD-10- CM F41.1 General ized anxiety disorde r ELBA TREVINO GLAS 10/21 [facility] Procedures Combined list of: 1) Procedures from Department of Veterans Affairs facilities going back up to thelast 18 months, not all [place] non-surgical procedures are included; 2) All procedures from the Department of Defense facilities. Procedure Procedure Type Code Date Perfomer Comments Sourc e No data available for this section [facility] DISTORTION PRODUCT EVOKED OTOACOUS EMISSIONS;LIMITED EVALUATION (TO CONFIRM THE PRESENCE/ABSENCE OF HEARING DISORDER,3-6 FREQUENCIES)/TRANSI ENT EVOKED OTOACOUS EMISSIONS,W INTERPRETATION &REPORT 2017 [employer] ADMINISTRATION OF PATIENT-FOCUSED HEALTH RISK ASSESSMENT INSTRUMENT (EG, HEALTH HAZARD APPRAISAL) WITH SCORING AND DOCUMENTATION, PER STANDARDIZED INSTRUMENT 2019 [employer] PURE TONE AUDIOMETRY (THRESHOLD), AUTOMATED; AIR ONLY 2019 DoD SUPP &MATERIAL (EXCEPT SPECTACLE),PROVID,T HE PHYS/OTH QUALIFIED HEALTH MANAGER SAS OVER &ABOVE THOSE USUALLY INCLD W THE OFFICE VISIT/OTH SER RENDERED (LIST DRUG,TRAYS,SUPP,OR MATERIAL PROVID) 2019 [facility] EXERCISE EQUIPMENT 2019 [facility] THERAPEUTIC PROCEDURE, 1 OR MORE AREAS, EACH 15 MINUTES; THERAPEUTIC EXERCISES TO DEVELOP STRENGTH AND ENDURANCE, RANGE OF MOTION AND FLEXIBILITY 2019 DoD SCREENING TEST OF VISUAL ACUITY, QUANTITATIVE, BILATERAL 2019 DoD ADMINISTRATION OF PATIENT-FOCUSED HEALTH RISK ASSESSMENT INSTRUMENT (EG, HEALTH HAZARD APPRAISAL) WITH SCORING AND DOCUMENTATION, PER STANDARDIZED INSTRUMENT 2019 DoD SCREENING TEST OF VISUAL ACUITY, QUANTITATIVE, BILATERAL 2019 DoD CLOSED TREATMENT OF SCAPULAR FRACTURE; WITHOUT MANIPULATION 2018 DoD IMMUNIZATION ADMINISTRATION (INCLUDES PERCUTANEOUS, INTRADERMAL, SUBCUTANEOUS, OR INTRAMUSCULAR INJECTIONS); 1 VACCINE (SINGLE OR COMBINATION VACCINE/TOXOID) 2018 DoD ADMINISTRATION OF PATIENT-FOCUSED HEALTH RISK ASSESSMENT INSTRUMENT (EG, HEALTH HAZARD APPRAISAL) WITH SCORING AND DOCUMENTATION, PER STANDARDIZED INSTRUMENT 2018 DoD APPLICATION OF A MODALITY TO 1 OR MORE AREAS; HOT OR COLD PACKS 2018 DoD ATHLETIC TRAINING EVALUATION, MODERATE COMPLEXITY,REQ:MED HIST & PHYS ACT PROFILE W 1-2 COMORB AFF PHYS ACT;EXM AFF BODY AREA,3+ ELEMENTS;CLIN DEC ABIGAIL,MOD;TYP,30 MIN,SPENT [id number] W PAT &/FAMILY 2018 DoD INTRAVENOUS INFUS,FOR THERAPY,PROPHYLAXIS ,OR DIAG (SPECIFY SUBSTANCE/DRUG);ADD ITIONAL SEQUENTIAL INFUS OF A NEW DRUG/SUBSTANCE,UP TO 1 HOUR (LIST SEPARATELY IN ADDITION TO CODE FOR PRIMARY PROC) 2018 DoD APPLICATION OF A MODALITY TO 1 OR MORE AREAS; HOT OR COLD PACKS 2017 DoD INFLUENZA VIRUS VACCINE, QUADRIVALENT (IIV4), SPLIT VIRUS, 0.5 ML DOSAGE, FOR INTRAMUSCULAR USE 2017 DoD ADMINISTRATION OF PATIENT-FOCUSED HEALTH RISK ASSESSMENT INSTRUMENT (EG, HEALTH HAZARD APPRAISAL) WITH SCORING AND DOCUMENTATION, PER STANDARDIZED INSTRUMENT 2017 DoD PURE TONE AUDIOMETRY (THRESHOLD), AUTOMATED; AIR ONLY 2017 DoD APPLICATION OF A MODALITY TO 1 OR MORE AREAS; HOT OR COLD PACKS 2017 DoD HEPATITIS A AND HEPATITIS B VACCINE (HEPA-HEPB), ADULT DOSAGE, FOR INTRAMUSCULAR USE 2017 DoD THERAPEUTIC PROCEDURE, 1 OR MORE AREAS, EACH 15 MINUTES; THERAPEUTIC EXERCISES TO DEVELOP STRENGTH AND ENDURANCE, RANGE OF MOTION AND FLEXIBILITY 2017 DoD APPLICATION OF A MODALITY TO 1 OR MORE AREAS; HOT OR COLD PACKS 2017 DoD ATHLETIC TRAINING EVALUATION, MODERATE COMPLEXITY,REQ:MED HIST & PHYS ACT PROFILE W 1-2 COMORB AFF PHYS ACT;EXM AFF BODY AREA,3+ ELEMENTS;CLIN DEC ABIGAIL,MOD;TYP,30 MIN,SPENT [id number] W PAT &/FAMILY 2017 DoD IMMUNIZATION ADMINISTRATION (INCLUDES PERCUTANEOUS, INTRADERMAL, SUBCUTANEOUS, OR INTRAMUSCULAR INJECTIONS); EACH ADDITIONAL VACCINE (SINGLE OR COMBINATION VACCINE/TOXOID) 2016 DoD INTRAVENOUS INFUSION, HYDRATION; INITIAL, 31 MINUTES TO 1 HOUR 2016 DoD IMMUNIZATION ADMINISTRATION (INCLUDES PERCUTANEOUS, INTRADERMAL, SUBCUTANEOUS, OR INTRAMUSCULAR INJECTIONS); EACH ADDITIONAL VACCINE (SINGLE OR COMBINATION VACCINE/TOXOID) 2016 DoD MEASLES, MUMPS AND RUBELLA VIRUS VACCINE (MMR), LIVE, FOR SUBCUTANEOUS USE 2016 [facility] OPHTHALMOLOGICAL SERVICES: MEDICAL EXAMINATION AND EVALUATION WITH INITIATION OF DIAGNOSTIC AND TREATMENT PROGRAM; INTERMEDIATE, NEW PATIENT 2016 [facility] HEPATITIS A AND HEPATITIS B VACCINE (HEPA-HEPB), ADULT DOSAGE, FOR INTRAMUSCULAR USE 2016 [facility] Modalities Cryotherapy Cold Packs Modalities Cryotherapy Cold Packs [id number] 2017 COBURN, ISABEL A X 15 min to L ankle. [facility] Physical Therapy: ___ Se ion Segments, 15 Minutes Each Physical Therapy: ___ Session Segments, 15 Minutes Each [id number] 2017 COBURN, ISABEL A Therex x 15 min to L ankle. [facility] Immunization Administration One Vaccine Immunization Administration One Vaccine 59864 2017 MICHELET ANDERSON [facility] Threshold Audiogram (Pure Tone) Automated Threshold Audiogram (Pure Tone) Automated [id number] 2017 LEONA VALDEZ [facility] Patient education, not otherwise cla ified, non-physician provider, group, per se ion 2017 LEONA VALDEZ [facility] Modalities Cryotherapy Cold Packs Modalities Cryotherapy Cold Packs 10911 2017 COBURN, ISABEL A X 15 min to L wrist. [facility] Physical Therapy: ___ Se ion Segments, 15 Minutes Each Physical Therapy: ___ Session Segments, 15 Minutes Each [id number] 2017 COBURN, ISABEL A Therex x 30 min to L wrist. [facility] Immunization Administration One Vaccine Immunization Administration One Vaccine 86530 2017 LEYDI PARADA [facility] Hepatitis A And Hepatitis B (Intramuscular Use) Adult Dosage Hepatitis A And Hepatitis B (Intramuscular Use) Adult Dosage 74697 2017 LEYDI PARADA Hep A-Hep B; Series #: 3; 1.0 mL; IM; Left Arm; Mfg: [employer]; Lot: [id number]; VIS given (Ana: 01/02/2018). [facility] Physical Therapy: ___ Se ion Segments, 15 Minutes Each Physical Therapy: ___ Session Segments, 15 Minutes Each [id number] 2017 CARMEN MUÑOZ 35 min DoD Modalities Cryotherapy Cold Packs Modalities Cryotherapy Cold Packs 23272 2017 MELISSA MILTON V 15 min DoD Mobilization Soft Ti ue Mobilization Soft Tissue 22477 2017 MELISSA MILTON V passive ROM: flex/ ext/ pronation/ supination 10 min DoD Modalities Cryotherapy Cold Packs Modalities Cryotherapy Cold Packs 14983 2017 ISABEL COBURN X 15 min to L wrist. [facility] Physical Therapy: ___ Se ion Segments, 15 Minutes Each Physical Therapy: ___ Session Segments, 15 Minutes Each [id number] 2017 ISABEL COBURN Theex x 15 min to L wrist. [facility] Evoked Otoacoustic Gay ions Limited Evoked Otoacoustic Emissions Limited 96112 2017 [facility] Tympanometry With Reflex Threshold Measurements Tympanometry With Reflex Threshold Measurements 68830 2017 [facility] Comprehensive Audiometry Comprehensive Audiometry 09781 2017 [facility] RAHEL [facility] Immunization Administration One Vaccine Immunization Administration One Vaccine 67900 2016 DAMARIS [facility] Vaccines Viral Measles, Mumps and Rubella, Live Vaccines Viral Measles, Mumps and Rubella, Live 71504 2016 DAMARIS [facility] Immunization Administration Each Additional Vaccine Immunization Administration Each Additional Vaccine 31538 2016 DAMARIS [facility] IV Infusion For Hydration 31 Minutes To 1 Hour IV Infusion For Hydration 31 Minutes To 1 Hour 52254 2016 ANNEDELUCEMichael( IDC)KENJI [facility] Immunization Administration One Vaccine Immunization Administration One Vaccine 52675 2016 [facility] Immunization Administration Each Additional Vaccine Immunization Administration Each Additional Vaccine 01735 2016 NAT [facility] Hepatitis A And Hepatitis B (Intramuscular Use) Adult Dosage Hepatitis A And Hepatitis B (Intramuscular Use) Adult Dosage 48717 2016 JOHNS [facility] Vaccines Viral Polio, Inactivated (Salk) Vaccines Viral Polio, Inactivated (Salk) 85712 2016 NAT [facility] Supervised Injection Intramuscular Antibiotic Supervised Injection Intramuscular Antibiotic 13887 2016 NAT [facility] Immunization Administration One Vaccine Immunization Administration One Vaccine 06472 2016 [facility] Immunization Administration Each Additional Vaccine Immunization Administration Each Additional Vaccine 30467 2016 [facility] Vaccines Viral Measles, Mumps and Rubella, Live Vaccines Viral Measles, Mumps and Rubella, Live 37577 2016 ALEXIS JOHNS [facility] Ophthalmological New Patient Start Intermediate Level Care Ophthalmological New Patient Start Intermediate Level Care 05264 2016 YAYA CARDENAS [facility] Serum Viral Antibody Rubella Serum Viral Antibody Rubella 73478 2016 [facility] Serum Vir[facility] Antibody Rubeola Serum Viral Antibody Rubeola 13041 2016 [facility] Serum Viral Antibody Varicella-Zoster Serum Viral Antibody Varicella-Zoster 32015 2016 [facility] Supervised Injection Intramuscular Antibiotic Supervised Injection Intramuscular Antibiotic 85979 2016 [facility] [place] Vaccines Adenovirus Type 4 Live, For Oral Use Vaccines Adenovirus Type 4 Live, For Oral Use 17723 2016 [facility] Vaccines Adenovirus Type 7 Live, For Oral Use Vaccines Adenovirus Type 7 Live, For Oral Use 43466 2016 [facility] Serum Viral Antibody Immunoblot (Western Blot) HIV 1 & 2 Serum Viral Antibody Immunoblot (Western Blot) HIV 1 & 2 92371 2016 [facility] Serum Viral Antibody Mumps Serum Viral Antibody Mumps 54061 2016 [facility] Immunization Administration One Vaccine Immunization Administration One Vaccine 56594 2016 [facility] Skin Test Anergy Tuberculin Intradermal Skin Test Anergy Tuberculin Intradermal 15585 2016 BERNARDCAROLINA MONTAGUE [facility] Pneumococcal Polysaccharide Vaccine Adult Dos For Intramusc Pneumococcal Polysaccharide Vaccine Adult Dos For Intramusc 17093 2016 [facility] Meningococcal Polysaccharide Vaccine (Active) Meningococcal Polysaccharide Vaccine (Active) 00922 2016 BERNARDCAROLINA MONTAGUE [facility] Tdap Vaccine Seven Years Of Age And Above Tdap Vaccine Seven Years Of Age And Above 07092 2016 [facility] Hepatitis A And Hepatitis B (Intramuscular Use) Adult Dosage Hepatitis A And Hepatitis B (Intramuscular Use) Adult Dosage 50719 2016 RAVINDER BERNARDA [facility] Immunization Administration Each Additional Vaccine Immunization Administration Each Additional Vaccine 85190 2016 [facility] Supervised Injection Intramuscular Supervised Injection Intramuscular 62483 2016 [facility] Venipuncture Venipuncture 62082 2016 [facility] Collection Of Capillary Blood Specimen Collection Of Capillary Blood Specimen 26301 2016 [facility] Patient education, not otherwise cla ified, non-physician provider, group, per se ion 2016 MCKENZIE MILLER [facility] Audiometry Group Testing Audiometry Group Testing 38085 2016 MCKENZIE MILLER [facility] Physical Therapy Mobilization Joint Physical Therapy Mobilization Joint 45783 ISABEL COBURN A x 8 min TPT to L foot DoD Modalities Cryotherapy Cold Packs Modalities Cryotherapy Cold Packs 91577 ISABEL COBURN A x 15 min to L foot. [facility] Immunization Administration One Vaccine Immunization Administration One Vaccine 77983 DELFINO MCCLELLAN [facility] Closed Treatment Of Scapular Fracture Closed Treatment Of Scapular Fracture 33599 ROHIT HUBBARD [facility] Screening Test Of Visual Acuity, Quantitative, Bilateral Screening Test Of Visual Acuity, Quantitative, Bilateral 85765 DEANDRE ÁLVAREZ [facility] Physical Therapy: ___ Se ion Segments, 15 Minutes Each Physical Therapy: ___ Session Segments, 15 Minutes Each 05044 HUA CARDONA [facility] Exercise equipment BOSSIE RMYRNA mini massage + texture stick [facility] Occupational Therapy Re-Evaluation Occupational Therapy Re-Evaluation [address] [facility] Exercises A isted Exercises For ROM Exercises Assisted Exercises [place] ROM [address] [facility] Exercise equipment [address] [facility] -Supervised Services Provision Of Special Supplies -Supervised Services Provision Of Special Supplies [address] Digit sleeve [facility] Patient education, not otherwise cla ified, non-physician provider, group, per se ion LEONA VALDEZ [facility] Threshold Audiogram (Pure Tone) Automated Threshold Audiogram (Pure Tone) Automated 0208T LEONA VALDEZ [facility] Social History Combined list of available smoking, tobacco, and other social history from [facility] and [facility] facilities. Social History Type Response Date Comment Sourc e Tobacco smoking status NHIS VA-TOBACCO USE FORMER CIGARETTES 06/30/2024 [facility] History of tobacco use VA-TOBACCO USE EV MURRAY DAY OTHER TYPE 06/30/2024 [facility] History of tobacco use VA-TOBACCO FORMER USER 02/27/2023 [facility] Sex Representation Male (finding) 05/26/2020 Un known Organization Tobacco Smoking tobacco use: vape. Type: Vaping. [facility] Pharmacy Sexual Orientation Ambula tory Pharmacy Gender identity Ambulator y Pharmacy This section is an empty social history section. [facility] Assessment and Plan Combined list of future care activities from [facility] of Defense and Veterans Affairs facilities (e.g., assessment and plan notes, appointments, orders, and referrals). Additional future care activities may be listed in the Plan of Care section. Result Assessment and Plan Date Source Assessment and Plan Extracted from:Title : Termination audiogram Author: LEONA VALDEZ Date: 02/07/21 1. E DINA, FORMAL OCCUPATIONAL HEALTH PROGRAM INCLUDING HEARING CONSERVATION PROGRAM, DUE TO TERMINATION OF OCCUPATIONAL WORKPLACE EXPOSURE 2. E NT disease treatment started 3. H ealth education given A ssessment: Patient d oes not have an STS i n today's a udiogram. N o further testing required. Plan: Termination Audiogram Complete. Extracted from:Title: covid triage Office Clinic Note Author: BENJA LEVINE Date: 11/14/20 Chest pain Cough Sore throat Extracted from:Title: Follow up 1 Author: LEONA VALDEZ Date: 06/20/20 1. E DINA, FORMAL OCCUPATIONAL HEALTH PROGRAM INCLUDING HEARING CONSERVATION PROGRAM, PERIODIC FOR CONTINUED SURVEILLANCE FOR OCCUPATIONAL WORKPLACE EXPOSURE 2. E NT disease treatment started 3. H ealth education given 12/14/[id number] [place] [address] 13 [facility] Plan of Care List of future care activities from Department of Veterans Affairs facilities. Additional future care activities may be listed in the Assessment and Plan section. Date/Time Care Activity Care Activity Detail Facili ty 01/19/2025 AMBULATORY - PSYCHIATRY AMBULATORY - PSYC HIATRY [facility] Functional Status Combined list of recent functional and cognitive assessments recorded at [facility] ([place] Functional [place]uden Measurement (FIM) Scale: 1 = Total Assistance (Subject = 0% +), 2 = Maximal Assistance (Subject = 25% +), 3 = Moderate Assistance (Subject = 50% +), 4 = Minimal Assistance (Subject = 75% +), 5 = Supervision, 6 = Modified Pruden (Device), 7 = Complete Pruden (Timely, Safely). Assessment Date/Time Source Assessment Type Assessment Skill Assessment Score Assessment Details No data available for this section
--- OUTSIDE RECORDS SUMMARY | 2024-12-14 12:16 | XMS_ITS | Encounter Summary ---
Author Name [facility] Organization [facility] Address [address] [place] [address] Care Team Providers Care Merchandise Support Associate Name Role Phone LALY FERRARA Primary Care Provider Unavailabl e Selected Encounter This section includes the information on record at [place] for the Encounter. Date/Time Encounter Type Encounter Description Reason Provider Source Aug 21, 2024 08:00 AM OFFICE O/P EST MOD 30 MIN [facility] - IND ICD-10-CM F41.1 Generalized anxiety disorder DAVID NICK Encounter Template Text not used by [place] Assessments - Encounter Diagnoses This section includes the primary and secondary diagnoses documented for the Encounter. Date/Time Primary/Secondary Diagnosis Diagnosis Name Provider Source Aug 21, 2024 08:26 AM PRIMARY Generalized anxiety disorder DAVID NICK [facility] Aug 21, 2024 08:26 AM SECONDARY Alcohol abuse, uncomplicated DAVID NICK [facility] Aug 21, 2024 08:26 AM SECONDARY Major depressive disorder, single episode, unspecified DAVID NICK CBJUHI Plan of Treatment: Future Appointments (+ 6 months) and Future Tests (+/- 45 days) The Plan of Treatment section includes future care activities for the patient from all [place] treatmentfacilities. This section includes future appointments and future orders which are active, pending or scheduled. Future Appointments This section includes appointments that were scheduled to occur 6 months from the date of the Encounter, up to a maximum of 20 appointments. The data comes from all [place] treatment facilities. Appointment Date/Time Appointment Type Appointme nt Facility Name Oct 21, 2024 08:00 AM AMBULATORY - PSYCHIATRY [facility] Jan 19, 2025 08:00 AM AMBULATORY - PSYCHIATRY [facility] GONSALVES Active, Pending, and Scheduled Orders This section includes a listing of several types of active, pending, and scheduled orders, including clinic medications orders, diagnostic test orders, procedure orders and consult orders; where the start date of the order is 45 days before the date of the Encounter or 45 days after the date of theEncounter. The data comes from all [place] treatment facilities. Test Date/Time Test Type Test Details Facility Name Sep 28, 2024 12:00 AM Laboratory - Chemi stry Order BASIC METABOLIC PANEL+MG PLASMA SP ONCE [facility] Sep 28, 2024 12:00 AM Laboratory - Chemi stry Order LIPID PANEL,NON-FASTING PLASMA SP [facility] Sep 28, 2024 12:00 AM Laboratory - Chemi stry Order TSH W/REFLEX TO FREE T4 PLASMA [facility] SP [facility] Sep 28, 2024 12:00 AM Laboratory - Chemi stry Order URIC ACID PLASMA [facility] SP [facility] Sep 28, 2024 12:00 AM Laboratory - Chemi stry Order AST/SGOT PLASMA [facility] SP [facility] Sep 28, 2024 12:00 AM Laboratory - Chemi stry Order ALT/SGPT PLASMA [facility] SP [facility] Sep 28, 2024 12:00 AM Laboratory - Chemi stry Order CBC & DIFF BLOOD [facility] SP [facility] Social History: Smoking Status (Most current) and Tobacco Use (All prior to encounter date) This section includes the most current, and the historical, smoking and tobacco- related health factors from the [place] facility where the Encounter took place. Current Smoking Status This section includes the most current smoking, or tobacco-related health factor, from the [place] facility where the Encounter took place. Date/Time Current Smoking Status Comment Facil ity Jun 30, 2024 12:30 PM VA-TOBACCO USE FORMER CIGARETTES [facility] Tobacco Use History This section includes a history of the smoking, or tobacco-related health factors, that were collected on or before the date of the Encounter. The data comes from the [place] facility where the Encounter took place. Date/Time Smoking Status/Tobacco Use Comment F acility Jun 30, 2024 12:30 PM VA-TOBACCO USE EVERY DAY OTHER T YPE [facility] Jun 30, 2024 12:30 PM VA-TOBACCO USE FORMER CIGARETTES [facility] Feb 27, 2023 10:00 AM VA-TOBACCO FORMER USER [facility] Feb 27, 2023 10:00 AM VA-TOBACCO QUIT < 1 YEAR [facility] Encounter Notes: All associated encounter notes This section contains the clinical notes associated to the Encounter. Date/Time Encounter Note(s) Provider Source Sep 17, 2024 08:46 AM ADDENDUM: LOCAL TITLE: Addendum STANDARD TITLE: ADDENDUM DATE OF NOTE: SEP 17, 2024@08:46:40 ENTRY DATE: SEP 17, 2024@08:46:40 AUTHOR: EDDIE HERNANDEZ COSIGNER: URGENCY: STATUS: COMPLETED [place] reports having more anger now that he stopped alcohol. Coding Advisor spoke with Dr. Nick who recommended that increase duloxetine to 90mg daily. reports that he still has 30mg tabs and will take with 60mg tabs until new dose arrives in the mail. Agreed to schedule f/u in 6 weeks. Warm handoff to [facility]. /kun/ EDDIE GARVIN RN, [facility] Signed: 09/17/2024 08:50 Receipt Acknowledged By: 09/17/2024 08:59 /es/ DAVID NICK MD PSYCHIATRIST --- Original Document --- 08/21/24 PSYCHIATRIC EVALUATION & MANAGEMENT: PSYCHIATRIC EVALUATION AND MANAGEMENT FOLLOW UP VISIT Duration: 30 minutes Time spent performing psychotherapy services: 16-30 minutes Visit conducted by [place] [facility] synchronous telehealth. [place] verbal consent obtained. Location/emergency number confirmed. Environment surveyed and all participants identified. Virtual conference room locked. IDENTIFICATION: 24 year old [place] (50% MDD) male kept appt in [facility] clinic for voluntary psychiatric med management/supportive therapy follow up last appt Jul 05. The electronic medical record was reviewed. Medication list reviewed/reconciled with . DIAGNOSIS: MIKE MDD Alcohol abuse HISTORY: with history MIKE/MDD. Initial CVT appt this psychiatrist May 04. May 04 [facility] prescription monitoring site reviewed: No problematic activity noted. At last appt shared SSRI seemed to lose efficacy few weeks after initial benefit but chose to just take daily and wait to see. now feels that there is no benefit for anxiety and low mood. He has also had difficulty in relationship attributes to alcohol use she has told ri if he continues may end the relationship. No abnormal involuntary muscle movements. he describes chronic back and knee/feet pain with tingling and numbness also there. he has been drinking 3-4 seltzers 3-4x a week and on [facility] birthday used whiskey about 1/4 bottle stated was very drunk. he is interested in abstaining from alcohol or at least to minimize use. wants naltrexone trial. discussed importance to treat DC/he will contact sleep med for appt/referral for dental device. we discussed SSRI increase vs switch to SNRI he preferred SNRI trial. Plan was to taper off Escitalopram and start Duloxetine targeting anxiety and depression and neuropathic pain, start Naltrexone for alcohol craving. INTERVAL HISTORY: Signed in early seen early At appt ger shared has not been taking the nalterexone regularly stated holidays and family get togethers involve alcohol, since then has noted drinking has decreased about 50% w/o naltrexone. he wants to keep med active as yet to decide if wants to be more aggreessive to control use. switched to duloxetine has bene noting improvcement in mood and anxiety over time, still [...] benefit with duloxetine over next 6 weeks. agreed to [facility] follow up. GOALS: decrease anxiety resolve depression improve attention Current Symptoms: Sleep hours to fall asleep then not restorative mild DC/no nightmares, interest better, energy low, concentration improving, appetite stable/weight stable. improving worry, improving muscle tension, less irritability. No SI/HI at this time/no history. weights and treadmill hour near daily exercise, vapes but no tobacco products, green tea or black tea once daily/no other caffeine products, 2-3 drinks couple x a week history of 3-4 drinks 3-4x week hx problematic use, no use of recreational drugs/hx cannabis. Psych History: Apr 03 initial psychology [facility] dx MIKE and MDD No history of suicide attempts/no hospitalizations. 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 CURRENT MEDICATIONS: Active Outpatient Medications (including Supplies): Outpatient Medications Status 1) CELECOXIB 200MG CAP TAKE ONE CAPSULE BY MOUTH EVERY DAY ACTIVE NEEDED Indication: FOR PAIN 2) CHOLECALCIF 25MCG (D3-1,000UNIT) TAB TAKE ONE TABLET BY ACTIVE MOUTH EVERY DAY VITAMIN D DAILY IN WINTER MONTHS Indication: FOR VITAMIN D 3) DULOXETINE HCL 60MG EC CAP TAKE ONE CAPSULE BY MOUTH EVERY PENDING DAY Indication: FOR ANXIETY 4) FLUTICASONE PROP 50MCG 120D NASAL INHL SPRAY 2 SPRAYS IN ACTIVE EACH NOSTRIL EVERY DAY NEEDED Indication: FOR CONGESTION 5) LORATADINE 10MG TAB TAKE ONE TABLET BY MOUTH EVERY DAY ACTIVE NEEDED Indication: FOR ALLERGIES 6) MULTIVITAMIN CAP/TAB TAKE 1 TABLET BY MOUTH EVERY DAY ACTIVE Indication: FOR SUPPLEMENT 7) NALTREXONE (EQV-REVIA) 50MG TAB TAKE ONE TABLET BY MOUTH ACTIVE EVERY DAY Indication: TO REDUCE CRAVINGS 8) NICOTINE POLACRILEX 2MG LOZENGE DISSOLVE 1 LOZENGE IN MOUTH ACTIVE EVERY 4 HOURS NEEDED Indication: TO QUIT TOBACCO 9) OMEPRAZOLE 20MG EC [...] involuntary movements. Affect: restricted but reactive Mood: better. No suicidal or homicidal ideation. Thought processing: [...] for mood and anxiety. 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 AUD, hx [...] and neuropathic pain, Naltrexone for alcohol craving. [place] agrees to take medication on daily basis and share benefits and side effects with provider. will maintain stable non-depressed mood, resolution of problematic worry/muscle tension/irritability, and maintain 6-8 hours restful sleep for 6/7 days a week with minimal disruption in daily activities 80% of time. Duloxetine 60mg daily #90 rf=1 Naltrexone 50mg a day for alcohol craving adequate supply he is aware med works best when taken daily. [place] was given sleep med number to schedule appt as previously recommended by sleep med. Labs: none Return to [facility] clinic in 6 weeks (his preference) or [...] the patient who acknowledges agreement and understanding. Depression Monitoring (PHQ-9): PHQ-9 A PHQ-9 screen was performed. The score was 6. 1. Little interest or pleasure in doing things Several days 2. Feeling down, depressed, or hopeless Several days 3. Trouble falling or staying asleep, or sleeping too much Nearly every day 4. Feeling tired or having little energy Several days 5. Poor appetite or overeating Not at all 6. Feeling bad about yourself or that you are a failure or have let yourself or your family down Not at all 7. Trouble concentrating on things, such as reading the newspaper or watching television Not at all 8. Moving or speaking so slowly that other people could have noticed. Or the opposite being so fidgety or restless that you have been moving around a lot more than usual Not at all 9. Thoughts that you would be better off or of hurting yourself in some way Not at all 10. If you checked off any problems, how DIFFICULT have these problems made it for you to do your work, take care of things at home or get along with other people? Somewhat difficult had no previous PHQ-9 score to compare to current score to gauge improvement PHQ-9 results discussed with patient /es/ DAVID NICK MD PSYCHIATRIST Signed: 08/21/2024 08:30 09/17/2024 ADDENDUM STATUS: UNSIGNED You may not VIEW this UNSIGNED Addendum. EDDIE HERNANDEZ [facility] Aug 21, 2024 07:01 AM PSYCHIATRY E & M N OTE: LOCAL TITLE: MH PSYCHIATRIC EVALUATION & MANAGEMENT STANDARD TITLE: PSYCHIATRY E & M NOTE DATE OF NOTE: AUG 21, 2024@07:01 ENTRY DATE: AUG 21, 2024@07:01:42 AUTHOR: DAVID NICK EXP COSIGNER: URGENCY: STATUS: COMPLETED PSYCHIATRIC EVALUATION & MANAGEMENT Has ADDENDA PSYCHIATRIC EVALUATION AND MANAGEMENT FOLLOW UP VISIT Duration: 30 minutes Time spent performing psychotherapy services: 16-30 minutes Visit conducted by [place] [facility] Connect synchronous telehealth. verbal consent obtained. Location/emergency number confirmed. Environment surveyed and all participants identified. Virtual conference room locked. IDENTIFICATION: 24 year old [place] (50% MDD) male kept appt in [facility] clinic for voluntary psychiatric med management/supportive therapy follow up last appt Jul 05. The electronic medical record was reviewed. Medication list reviewed/reconciled with . DIAGNOSIS: MIKE MDD Alcohol abuse HISTORY: with history MIKE/MDD. Initial CVT appt this psychiatrist May 04. May 04 [facility] prescription monitoring site reviewed: No problematic activity noted. At last appt ger shared SSRI seemed to lose efficacy few weeks after initial benefit but chose to just take daily and wait to see. now feels that there is no benefit for anxiety and low mood. He has also had difficulty in relationship attributes to alcohol use she has told ri if he continues may end the relationship. No abnormal involuntary muscle movements. he describes chronic back and knee/feet pain with tingling and numbness also there. he has been drinking 3-4 seltzers 3-4x a week and on [facility] birthday used whiskey about 1/4 bottle stated was very drunk. he is interested in abstaining from alcohol or at least to minimize use. wants naltrexone trial. discussed importance to treat DC/he will contact sleep med for appt/referral for dental device. we discussed SSRI increase vs switch to SNRI he preferred SNRI trial. Plan was to taper off Escitalopram and start Duloxetine targeting anxiety and depression and neuropathic pain, start Naltrexone for alcohol craving. INTERVAL HISTORY: Signed in early seen early At appt ger eddy has not been taking the nalterexone regularly stated holidays and family get togethers involve alcohol, since then has noted drinking has decreased about 50% w/o naltrexone. he wants to keep med active as yet to decide if wants to be more aggreessive to control use. switched to duloxetine has bene noting improvcement in mood and anxiety over time, still [...] benefit with duloxetine over next 6 weeks. [place] agreed to [facility] follow up. GOALS: decrease anxiety resolve depression improve attention Current Symptoms: Sleep hours to fall asleep then not restorative mild DC/no nightmares, interest better, energy low, concentration improving, appetite stable/weight stable. improving worry, improving muscle tension, less irritability. No SI/HI at this time/no history. weights and treadmill hour near daily exercise, vapes but no tobacco products, green tea or black tea once daily/no other caffeine products, 2-3 drinks couple x a week history of 3-4 drinks 3-4x week hx problematic use, no use of recreational drugs/hx cannabis. Psych History: Apr 03 initial psychology [facility] dx MIKE and MDD No history of suicide attempts/no hospitalizations. 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 CURRENT MEDICATIONS: Active Outpatient Medications (including Supplies): Outpatient Medications Status 1) CELECOXIB 200MG CAP TAKE ONE CAPSULE BY MOUTH EVERY DAY ACTIVE NEEDED Indication: FOR PAIN 2) CHOLECALCIF 25MCG (D3-1,000UNIT) TAB TAKE ONE TABLET BY ACTIVE MOUTH EVERY DAY VITAMIN D DAILY IN WINTER MONTHS Indication: FOR VITAMIN D 3) DULOXETINE HCL 60MG EC CAP TAKE ONE CAPSULE BY MOUTH EVERY PENDING DAY Indication: FOR ANXIETY 4) FLUTICASONE PROP 50MCG 120D NASAL INHL SPRAY 2 SPRAYS IN ACTIVE EACH NOSTRIL EVERY DAY NEEDED Indication: FOR CONGESTION 5) LORATADINE 10MG TAB TAKE ONE TABLET BY MOUTH EVERY DAY ACTIVE NEEDED Indication: FOR ALLERGIES 6) MULTIVITAMIN CAP/TAB TAKE 1 TABLET BY MOUTH EVERY DAY ACTIVE Indication: FOR SUPPLEMENT 7) NALTREXONE (EQV-REVIA) 50MG TAB TAKE ONE TABLET BY MOUTH ACTIVE EVERY DAY Indication: TO REDUCE CRAVINGS 8) NICOTINE POLACRILEX 2MG LOZENGE DISSOLVE 1 LOZENGE IN MOUTH ACTIVE EVERY 4 HOURS NEEDED Indication: TO QUIT TOBACCO 9) OMEPRAZOLE 20MG EC [...] involuntary movements. Affect: restricted but reactive Mood: better. No suicidal or homicidal ideation. Thought processing: [...] for mood and anxiety. 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 AUD, hx [...] PLAN: Reviewed with treatment plan and medications. [place] voiced understanding, agreed to continue treatment, and will notify if experiences any problems with medication. After discussion of options with we agreed to continue Duloxetine targeting anxiety and depression and neuropathic pain, Naltrexone for alcohol craving. agrees to take medication on daily basis and share benefits and side effects with provider. will maintain stable non-depressed mood, resolution of problematic worry/muscle tension/irritability, and maintain 6-8 hours restful sleep for 6/7 days a week with minimal disruption in daily activities 80% of time. Duloxetine 60mg daily #90 rf=1 Naltrexone 50mg a day for alcohol craving adequate supply he is aware med works best when taken daily. [place] was given sleep med number to schedule appt as previously recommended by sleep med. Labs: none Return to [facility] clinic in 6 weeks (his preference) or [...] the patient who acknowledges agreement and understanding. Depression Monitoring (PHQ-9): PHQ-9 A PHQ-9 screen was performed. The score was 6. 1. Little interest or pleasure in doing things Several days 2. Feeling down, depressed, or hopeless Several days 3. Trouble falling or staying asleep, or sleeping too much Nearly every day 4. Feeling tired or having little energy Several days 5. Poor appetite or overeating Not at all 6. Feeling bad about yourself or that you are a failure or have let yourself or your family down Not at all 7. Trouble concentrating on things, such as reading the newspaper or watching television Not at all 8. Moving or speaking so slowly that other people could have noticed. Or the opposite being so fidgety or restless that you have been moving around a lot more than usual Not at all 9. Thoughts that you would be better off or of hurting yourself in some way Not at all 10. If you checked off any problems, how DIFFICULT have these problems made it for you to do your work, take care of things at home or get along with other people? Somewhat difficult [place] had no previous PHQ-9 score to compare to current score to gauge improvement PHQ-9 results discussed with patient /kun/ DAVID NICK MD PSYCHIATRIST Signed: 08/21/2024 08:30 09/17/2024 ADDENDUM STATUS: COMPLETED reports having more anger now that he stopped alcohol. Coding Advisor spoke with Dr. Nick who recommended that increase duloxetine to 90mg daily. [place] reports that he still has 30mg tabs and will take with 60mg tabs until new dose arrives in the mail. Agreed to schedule f/u in 6 weeks. Warm handoff to [facility]. /kun/ EDDIE GARVIN RN, [facility] Signed: 09/17/2024 08:50 Receipt Acknowledged By: 09/17/2024 08:59 /kun/ DAVID NICK MD PSYCHIATRIST 09/17/2024 ADDENDUM STATUS: COMPLETED med increase: mail Duloxetine 30mg take 90mg daily #270 rf=1 /kun/ DAVID NICK MD PSYCHIATRIST Signed: 09/17/2024 09:00 DAVID NICK [facility]
--- OUTSIDE RECORDS SUMMARY | 2024-12-14 12:16 | XMS_ITS | Encounter Summary ---
Author Name [facility] [place] [facility] [place] Address [address] [place] [address] Care Team Providers Care Military Lawyer Name Role Phone LALY FERRARA Primary Care Provider Unavailabl e Selected Encounter This section includes the information on record at [place] for the Encounter. Date/Time Encounter Type Encounter Description Reason Provider Source Jun 30, 2024 12:30 PM OFFICE O/P EST HI 40 MIN PRIMARY CARE/MEDICINE ICD-10-CM Z00.01 Encounter for general adult medical exam w abnormal findings LALY FERRARA Encounter Template Text not used by [place] Assessments - Encounter Diagnoses This section includes the primary and secondary diagnoses documented for the Encounter. Date/Time Primary/Secondary Diagnosis Diagnosis Name Provider Source Jun 30, 2024 04:01 PM PRIMARY Encounter for general adult medical exam w abnormal findings LALY FERRARA [facility] Jun 30, 2024 04:01 PM SECONDARY Abnormal results of liver function studies LALY FERRARA [facility] Jun 30, 2024 04:01 PM SECONDARY Allergic rhinitis, unspecified LALY FERRARA [facility] Jun 30, 2024 04:01 PM SECONDARY Encounter for immunization LORENZO MCCOY [facility] Jun 30, 2024 04:01 PM SECONDARY Gastro-esophageal reflux disease without esophagitis LALY FERRARA [facility] Jun 30, 2024 04:01 PM SECONDARY Hyperlipidemia, unspecified LALY FERRARA [facility] Jun 30, 2024 04:01 PM SECONDARY Major depressive disorder, single episode, unspecified FERRARALALY [facility] Jun 30, 2024 04:01 PM SECONDARY Nicotine dependence, unspecified, uncomplicated [facility] Jun 30, 2024 04:01 PM SECONDARY Obesity, unspecified [facility] Jun 30, 2024 04:01 PM SECONDARY Obstructive sleep apnea (adult) (pediatric) [facility]Y [facility] Jun 30, 2024 04:01 PM SECONDARY Pain, unspecified FERRARA,LALY [facility] Jun 30, 2024 04:01 PM SECONDARY Paroxysmal atrial fibrillation [facility]AR[facility]ALY [facility] Jun 30, 2024 04:01 PM SECONDARY Ventricular premature depolarization FERRARALALY DAVISE [facility] Jun 30, 2024 04:01 PM SECONDARY Vitamin D deficiency, unspecified FERRARALALY DAVIS [facility] Plan of Treatment: Future Appointments (+ 6 months) and Future Tests (+/- 45 days) The Plan of Treatment section includes future care activities for the patient from all [place] treatmentfacilities. This section includes future appointments and future orders which are active, pending or scheduled. Future Appointments This section includes appointments that were scheduled to occur 6 months from the date of the Encounter, up to a maximum of 20 appointments. The data comes from all [place] treatment facilities. Appointment Date/Time Appointment Type Appointme nt Facility Name Jul 06, 2024 11:30 AM [facility] Jul 07, 2024 08:00 AM [facility] Aug 21, 2024 08:00 AM [facility] Aug 21, 2024 02:00 PM [facility] Oct 21, 2024 08:00 AM [facility] Vital Signs: All taken on the encounter date This section contains inpatient and outpatient Vital Signs collected on the date of the Encounter. Date/Time Temperature Pulse Blood Pressure Respiratory Rate SP02 Pain Height Weight Body Mass Index Source Jun 30, 2024 12:37 PM 97.1 70 110/72 18 97 5 69.5 221.2 32 [facility] Immunizations: All administered on the encounter date This section contains immunizations associated to the Encounter. Immunization Series Date Issued Administered By Site Reaction Lot Number [id number] Code Drug Security Installer Comment(s) Source INFLUENZA, SPLIT VIRUS, TRIVALENT, PF Jun 30, 2024 LORENZO MCCOY LEFT DELTO ID [id number] [employer] [facility] [place], [facility] Social History: Smoking Status (Most current) and Tobacco Use (All prior to encounter date) This section includes the most current, and the historical, smoking and tobacco- related health factors from the [place] facility where the Encounter took place. Current Smoking Status This section includes the most current smoking, or tobacco-related health factor, from the [place] facility where the Encounter took place. Date/Time Current Smoking Status Comment Facil ity Jun 30, 2024 12:30 PM VA-TOBACCO USE FORMER CIGARETTES [facility] Tobacco Use History This section includes a history of the smoking, or tobacco-related health factors, that were collected on or before the date of the Encounter. The data comes from the [place] facility where the Encounter took place. Date/Time Smoking Status/Tobacco Use Comment F acility Jun 30, 2024 12:30 PM VA-TOBACCO USE EVERY DAY OTHER T YPE [facility] Jun 30, 2024 12:30 PM VA-TOBACCO USE FORMER CIGARETTES [facility] Feb 27, 2023 10:00 AM VA-TOBACCO FORMER USER [facility] Feb 27, 2023 10:00 AM VA-TOBACCO QUIT < 1 YEAR [facility] Encounter Notes: All associated encounter notes This section contains the clinical notes associated to the Encounter. Date/Time Encounter Note(s) Provider Source Jun 30, 2024 04:02 PM LETTERS: LOCAL TITLE: FOLLOW UP RESULTS LETTER STANDARD TITLE: LETTERS DATE OF NOTE: JUN 30, 2024@16:02 ENTRY DATE: JUN 30, 2024@16:02:10 AUTHOR: LALY FERRARA EXP COSIGNER: URGENCY: STATUS: COMPLETED [facility] [address] [place] [address] Jun ELIZABETH MATUTE [address] [facility] [id number] Dear : It was a pleasure to see you in clinic today and I am writing in follow-up to your visit to inform you that I changed acetaminophen or Tylenol prescription to Celebrex or celecoxib at 200 mg daily as needed for pain management due to abnormal liver function. Please make sure that you are are well-hydrated at all times to avoid side effects. You can schedule a lab only visit sometime in August after making lifestyle changes reviewed today to recheck abnormal test results from last year. You need to be seen soon if you are having any new additional symptoms. If everything goes well, we can see you for your annual visit as planned previously. If you have any further questions or problems, please contact [facility] at [phone] to schedule your follow up for in person or for video visit. Sincerely, LALY FERRARA MD PHYSICIAN [facility] LALY FERRARA [facility] Jun 30, 2024 02:08 PM H & P NOTE: LOCAL TITLE: [facility] ANNUAL VISIT STANDARD TITLE: H & P NOTE DATE OF NOTE: JUN 30, 2024@14:08 ENTRY DATE: JUN 30, 2024@14:08:30 AUTHOR: LALY FERRARA EXP COSIGNER: URGENCY: STATUS: COMPLETED Today's Nurse check-in paper sheet with vitals reviewed. Seen in clinic today respecting current PPE guidelines. Patient brought in outside medical records and have been reviewed: NO Co-managed care with a non-[place] provider. None Chief complaint:ELIZABETH CLINE is a 24 year old MALE is here for Wellness and preventive medicine visit. The patient has no concerns today. History of Present Illness: is a man with a known history of major depression in partial remission, chronic pain, obstructive sleep apnea, alcohol and vaping dependence, hyperlipidemia paroxysmal A-fib, abnormal liver enzymes, elevated uric acid levels, allergies and vitamin D deficiency. He is here today for his annual visit and has not refilled his supplements or allergy medication since his last visit. He is no longer taking metoprolol as prescribed previously. He has not had palpitations or skipped beats that he had when he was going through atrial fibrillation. He continues to drink excessive amounts to unwind from work stress as he is currently working 12-hour shifts 5 days a week and following alternates with 2 days of 12-hour shifts the following week. He has not been able to exercise and reports having bilateral lower extremity pain starts with his feet and sometimes knees bother him as well. He rates intensity of pain as 5/10 and is requesting medication to use as needed. He has had chronic low back pain and that seems to flareup intermittently as well. He has had difficulty sleeping and is taking escitalopram as prescribed by psychiatrist. He says allergy symptoms only bother him in the spring. He has not had a follow-up with dentist to get dental device recommended by sleep clinic for having had service-connected sleep apnea. He tells me that he was at a music festival in April when he was outdoors walking. Since then he has noticed bluish discoloration of partial big toenail on both sides. He does not report any local pain in the nail or nailbed or around the nail. It appears that the new nail is growing normally. He has been vaping and is interested in nicotine replacement therapy. He is also interested in alcohol cessation and agrees to discuss this with at his next appointment. No other concerns today. Review of Systems: is negative, except as above. Past Medical History Active problems - Computerized Problem List is the source for the followin. Chronic pain - TOTAL SC- 90% ; LUMBOSACRAL OR CERVICAL STRAIN (20%-SC) - LIMITED MOTION OF WRIST (10%-SC) - REMOVAL OF RIB(S) (10%-SC) - LIMITED MOTION OF WRIST (10%-SC) - LIMITED MOTION OF ANKLE (10%-SC) - PARALYSIS OF ULNAR NERVE (10%-SC) - LIMITED FLEXION OF KNEE (10%-SC) - LIMITATION ON MOTION, RING OR LITTLE FINGER (0%-SC) - PARALYSIS OF SCIATIC NERVE (10%-SC) 2. Obstructive Sleep Apnea of Adult (SCT [id number]) - TOTAL SC-90%:SLEEP APNEA SYNDROMES (30%-SC) - Seen in Sleep clinic-CPAP recommended 3. Tinnitus - TOTAL SC-90%:TINNITUS (10%-SC) 4. History of surgery - S/P RIB EXCISION 5. 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 Liver enzymes abnormal 7. Generalized anxiety disorder 8. Major depressive disorder - TOTAL SC-90%:MAJOR DEPRESSIVE DISORDER (50%-SC) 9. Nicotine dependence - USES E CIGS 10. Gastroesophageal reflux disease 11. Allergic Rhinitis ([facility] [id number]) 12. Body mass index 30+ - obesity 13. Vitamin D Deficiency ([facility] [id number]) 14. elevated uric acid 15. PVC - premature ventricular complex - ZIO Completed, see 03/15/23 letter for details 16. Paroxysmal Atrial Fibrillation ([facility] [id number]) - [facility] records sent by fax is reviewed and will be scanned to chart - see 09/18/23 result letter for 03/[address] [facility] - Normal LVEF 17. Varicocele - TOTAL SC-90%:VARICOCELE/HYDROCELE (0%-SC) 18. Hyperlipidemia ([facility] [id number]) Service: Service Branch Service # Entered Discharge [facility] MAR 25, 2017 MAR 24, 2021 HONORABLE Allergies: Patient has answered NKA Please see med list at the end of this note Physical Exam: Vitals: BP: 110/72 (06/30/2024 12:37) P: 70 (06/30/2024 12:37) R: 18 (06/30/2024 12:37) T: 97.1 F [36.2 C] (06/30/2024 12:37) WT: 221.2 lb [100.33 kg] (06/30/2024 12:37) BMI: 32.3 Pain: 5 (06/30/2024 12:37) O2 Sat: 97% (06/30/2024 12:37) General: Alert, well dressed and groomed, no apparent distress HEENT: Normocephalic, atraumatic, Neck: Movements intact Lungs: Clear; no wheezes, rhonchi or rales CV: RRR without murmur, rub or gallop GI: Abdomen is obese Skin: is intact, bilateral big toenail shows partial lateral portion shows bluish discoloration from recent subungual healing hematoma, no rash or erythema MS: No joint swelling, ambulates without difficulty Psych: Good eye contact, speech normal rate and rhythm, affect full range Lab/Other data: Previous labs reviewed. Assessment/Plan: Wellness/screening visit completed. Active problems - Computerized Problem List is the source for the followin. Chronic pain - TOTAL SC- 90% ; LUMBOSACRAL OR CERVICAL STRAIN (20%-SC) - LIMITED MOTION OF WRIST (10%-SC) - REMOVAL OF RIB(S) (10%-SC) - LIMITED MOTION OF WRIST (10%-SC) - LIMITED MOTION OF ANKLE (10%-SC) - PARALYSIS OF ULNAR NERVE (10%-SC) - LIMITED FLEXION OF KNEE (10%-SC) - LIMITATION ON MOTION, RING OR LITTLE FINGER (0%-SC) - PARALYSIS OF SCIATIC NERVE (10%-SC) 2. Obstructive Sleep Apnea of Adult ([facility] [id number]) - TOTAL SC-90%:SLEEP APNEA SYNDROMES (30%-SC) - Seen in Sleep clinic-CPAP recommended 3. Tinnitus - TOTAL SC-90%:TINNITUS (10%-SC) 4. Liver enzymes abnormal 5. Generalized anxiety disorder 6. Major depressive disorder - TOTAL SC-90%:MAJOR DEPRESSIVE DISORDER (50%-SC) 7. Nicotine dependence - USES E CIGS 8. Gastroesophageal reflux disease 9. Allergic Rhinitis ([facility] [id number]) 10. Body mass index 30+ - obesity 11. Vitamin D Deficiency ([facility] [id number]) 12. elevated uric acid 13. PVC - premature ventricular complex - ZIO Completed, see 03/15/23 letter for details 14. Paroxysmal Atrial Fibrillation ([facility] [id number]) - [facility] records sent by fax is reviewed and will be scanned to chart - see 09/18/23 result letter for 03/[address] [facility] - Normal LVEF 15. Varicocele - TOTAL SC-90%:VARICOCELE/HYDROCELE (0%-SC) 16. Hyperlipidemia ([facility] [id number]) Nutrition information provided and I have reviewed portion size necessary along with increasing water and veggie intake as tolerated to help reduce weight. He is given information regarding move program for further assistance. Low salt and low fat diet with regular exercise as tolerated will help improve or maintain normal Blood pressure, cholesterol, maintain good health or improve health is encouraged. Goal blood pressure < 129/79 is discussed. Importance of taking at least 3 servings of dairy per day or taking a multivitamin daily or taking vitamin D 1000 units daily in winter months is discussed. Medications reviewed and refills updated as requested. *Zio patch did not reveal atrial fibrillation and he is no longer symptomatic. *Importance of optimizing treatment for sleep apnea and quitting alcohol to prevent paroxysmal A-fib again in the near future is reviewed. He agrees to contact [place] dental clinic to get dental device done. *He has been using avcv-ihr-ggveckm omeprazole for heartburn as needed and understands that quitting alcohol will help reduce heartburn as well. New prescription for omeprazole to use as needed is sent to [place] pharmacy. *[place] understands that he will note improvement in cholesterol, liver function and uric acid levels if he quits alcohol use. *Alcohol use and untreated sleep apnea is likely contributing to weight as well. *He agrees to see a therapist for ongoing therapy and follow-up with for mental health concerns. He is instructed to discuss possibility of having escitalopram dosage increased and also consider naltrexone for alcohol cessation. *Conservative treatment for chronic pain is reviewed in detail and new prescription for acetaminophen to use as needed is sent to [place] pharmacy as requested. Later this was changed to celebrex 200mg daily due to abnormal liver enzymes. He is reassured that subungual hematoma and big toe nails will improve with time as the new nail grows out and he is encouraged to use ddxf-fua-hgkqptt arch support inserts in his shoes. He is instructed to schedule appointment with physical therapist for further management. *Importance of compliance with taking vitamin D supplement and winter months along with starting multivitamin daily is reviewed and new prescription sent to pharmacy. *He is encouraged to avoid vaping and use nicotine lozenges to taper off gradually. lab test/s can be repeated after making life style changes. Please see nursing documentation regarding vaccination. got flu shot updated today and risk benefits of HPV vaccination is reviewed and he plans to return to have it updated. He declines COVID booster dose and pneumococcal vaccine booster dose. is given number to call for appointments to have vision and hearing checked at [facility] [place] understands and agrees to the plan. Follow up as discussed. Sooner if questions or concerns. Follow-up Pos Alcohol : Patient's AUDIT-C score was greater than or equal to 5; brief alcohol intervention is indicated. Shared concern that the patient may be drinking at unhealthy levels known to increase his/her risk of alcohol related health problems. Specifically the following were reviewed: Heart disease, liver disease, medication interactions, depression, anxiety, insomnia, bleeding from the stomach The patient was advised/informed to drink within safe limits, which are no more than 2 drinks per day on average and no more than 4 drinks on any one day AND no more than 14 drinks per week. Will discuss again at next visit. Follow-Up Pos PTSD/Depression: I have reviewed the results of the Mental Health screens and have evaluated the patient. Based on the evaluation, the following disposition plan will be implemented: Already receiving needed treatment. Contact information and instructions for accessing emergency services provided. Medication Reconciliation: Education Evaluations *Was medication education provided for NEW medications or CHANGES to medications? (including medication name, dose, route, reason for use, and potential side effects). Yes. Verbal education was provided to patient/caregiver and patient/caregiver verbalized understanding. TERATOGENIC MED & CONTRACEPTION REVIEW (Optional)... [place] was informed about potential teratogenic risk of prescribed medications. intentions and need for effective contraception, if applicable, were discussed. MEDICATION RECONCILIATION List Given: An updated medication list was provided to the patient/caregiver. Review Done: The medication list shown below was verified for accuracy and it includes all pending medications/active medications/all medications or discontinued within the last 90 days/all remote medications and non-VA medications. If a given category (i.e. remote meds) is not shown, that means that a patient doesn't have a medication(s) in that category. Allergies listed below were also reviewed/updated for accuracy. Allergies/ADR from [facility] may not display in CPRS. Use JLV MRT5 - Allergies/ADRs FACILITY ALLERGY/ADR -------- No Remote Allergy/ADR Data available for this patient [facility] No Known Allergies Active and Recently Outpatient Medications (including Supplies): Issue Date Status Last Fill Pending Outpatient Medications Refills Expiration === 1) CELECOXIB 200MG CAP Qty: 30 Sig: TAKE PENDING ONE CAPSULE BY MOUTH EVERY DAY Refills: 0 NEEDED 2) CHOLECALCIF 25MCG (D3-1,000UNIT) TAB PENDING Qty: 90 Sig: TAKE ONE TABLET BY MOUTH Refills: 0 EVERY DAY 3) FLUTICASONE PROP 50MCG 120D NASAL INHL PENDING Qty: 3 Sig: SPRAY 2 SPRAYS IN EACH Refills: 0 NOSTRIL EVERY DAY NEEDED 4) LORATADINE 10MG TAB Qty: 90 Sig: TAKE PENDING ONE TABLET BY MOUTH EVERY DAY Refills: 0 NEEDED 5) MULTIVITAMIN CAP/TAB Qty: 100 Sig: PENDING TAKE 1 TABLET BY MOUTH EVERY DAY Refills: 0 6) NICOTINE POLACRILEX 2MG LOZENGE Qty: 72 PENDING Sig: DISSOLVE 1 LOZENGE IN MOUTH EVERY Refills: 0 4 HOURS NEEDED 7) OMEPRAZOLE 20MG EC CAP Qty: 90 Sig: PENDING TAKE ONE CAPSULE BY MOUTH EVERY DAY Refills: 0 NEEDED Issue Date Status Last Fill Inactive Outpatient Medications Refills Expiration === 1) ESCITALOPRAM OXALATE 10MG TAB Qty: 90 Issu:05-28-23 for 90 days Sig: TAKE ONE TABLET BY Refills: 0 Last:04-19-24 MOUTH EVERY DAY FOR ANXIETY Expr:05-28-24 2) METOPROLOL SUCCINATE 25MG SA TAB Qty: Issu:04-10-23 90 for 90 days Sig: TAKE ONE TABLET Refills: 3 Last:04-10-23 BY MOUTH EVERY DAY FOR ATRIAL Expr:04-10-24 FIBRILLATION 9 Total Medications /es/ LALY FERRARA MD PHYSICIAN JACOB MARIO Signed: 06/30/2024 16:02 LALY FERRARA CBJUHI Jun 30, 2024 12:40 PM INTERNAL MEDICINE OUTPATIENT NOTE: LOCAL TITLE: MEDICINE CLINIC NURSING NOTE STANDARD TITLE: INTERNAL MEDICINE OUTPATIENT NOTE DATE OF NOTE: JUN 30, 2024@12:40 ENTRY DATE: JUN 30, 2024@12:40:16 AUTHOR: LORENZO MCCOY EXP COSIGNER: URGENCY: STATUS: COMPLETED TYPE OF VISIT: Appointment Check In Type of appointment: In-person appointment REASON FOR VISIT: ANNUAL ALLERGIES: Patient has answered NKA VITAL SIGNS: Blood Pressure: 110/72 (06/30/2024 12:37) Pulse: 70 (06/30/2024 12:37) Respiration: 18 (06/30/2024 12:37) Temperature: 97.1 F [36.2 C] (06/30/2024 12:37) Weight: 221.2 lb [100.33 kg] (06/30/2024 12:37) Height: 69.5 in [176.5 cm] (06/30/2024 12:37) BMI: 32.3 O2 Sat: 97% (06/30/2024 12:37) Pain: 5 (06/30/2024 12:37) PAIN SCREEN: Patient is having significant pain that they would like to talk to their provider about today. Old (Chronic) (began more than 6 months ago) Patient states their average pain this past week is 5 Patient states the average number on how the chronic pain affects their enjoyment of life the past week is 5 Patient states during the past week the average number on how the pain has interfered with their general activity is 5 MEDICATION Active Outpatient Medications (including Supplies): No Medications Found Patient reports the following changes regarding the current pharmacy list of medications: NO MEDS Over the Counter/Herbal Medications: The patient denies taking any outside medications or herbals. Suicide Screen: C-SSRS Screening Stem Suicide Severity Rating Scale (C-SSRS) screener 1. Over the past month, have you wished you were or wished you could go to sleep and not wake up? Yes 2. Over the past month, have you had any actual thoughts of killing yourself? No 3. Over the past month, have you been thinking about how you might do this? Response not required due to responses to other questions. 4. Over the past month, have you had these thoughts and had some intention of acting on them? Response not required due to responses to other questions. 5. Over the past month, have you started to work out or worked out the details of how to kill yourself? Response not required due to responses to other questions. 6. If yes, at any time in the past month did you intend to carry out this plan? Response not required due to responses to other questions. 7. In your lifetime, have you ever done anything, started to do anything, or prepared to do anything to end your life (for example, collected pills, obtained a gun, gave away valuables, went to the roof but didn't jump)? No 8. If YES, was this within the past 3 months? Response not required due to responses to other questions. Tobacco Use Screening: The patient is a former cigarette smoker. The patient uses other type(s) of tobacco every day. Other Tobacco Type(s) used: Electronic Nicotine Delivery System (ENDS) (e.g., e-cigarettes/vape pens) Depression Screening: Perform PHQ-2 A PHQ-2 screen was performed. The score was 3 which is a positive screen for depression. Over the past two weeks, how often have you been bothered by the following problems? 1. Little interest or pleasure in doing things More than half the days 2. Feeling down, depressed, or hopeless Several days Licensed Independent Provider notified of positive screen and need for follow-up. Name of provider notified: DR FERRARA Alcohol Use Screen (AUDIT-C): Alcohol Screen: SCREEN FOR ALCOHOL (AUDIT-C) An alcohol screening test (AUDIT-C) was positive (score=6). 1. How often did you have a drink containing alcohol in the past year? Consider a drink to be a 12 ounce can or bottle of regular beer, 8 ounces of malt liquor, a 5 ounce glass of table wine, or a 1.5 ounce shot of liquor (like scotch, gin, or vodka). Two to three times per week 2. How many drinks containing alcohol did you have on a typical day when you were drinking in the past year? Three or four drinks 3. How often did you have six or more drinks on one occasion in the past year? Monthly PTSD Screening: PC-PTSD-5 A PTSD screening test (PC-PTSD-5) was negative (score=0). IN THE PAST MONTH, have you ever had any experience that was so frightening, horrible or traumatic. For example: A serious accident or fire a physical or sexual assault or abuse An earthquake or flood A war Seeing someone be killed or seriously injured Having a loved one through homicide or suicide 1. Have you ever experienced this kind of event? NO 2. Had nightmares about the event(s) or thought about the event(s) when you did not want to? Response not required due to responses to other questions. 3. Tried hard not to think about the event(s) or went out of your way to avoid situations that reminded you of the event(s)? Response not required due to responses to other questions. 4. Been constantly on guard, watchful, or easily startled? Response not required due to responses to other questions. 5. [place] numb or detached from people, activities, or your surroundings? Response not required due to responses to other questions. 6. [place] guilty or unable to stop blaming yourself or others for the event(s) or any problems the event(s) may have caused? Response not required due to responses to other questions. Nursing Annual Screening: Whole Health Screen is due OR due soon (within 90 days). Whole Health Screening Why is addressing your overall health important to you? WANT TO LIVE LONGER What do you want your health for (why do you want to be healthy)? BETTER LIFE Fall History Screen During the past 12 months, have you had any falls? Patient does not report any falls in the past 12 months. MEDICATIONS: Patient is on one of the following medication classes: Antihypertensives, Antidepressants, Antipsychotics, Diuretics, or Controlled substance medication used for pain. Script Talk Screen Are you able to read your prescription bottles with your glasses, magnifiers or other aids? Yes or patient not taking any prescriptions. Skin Screen Patient reports any current pressure ulcers, a history of pressure ulcers, or a wound from a medical educator or Patient is bed-confined or a wheelchair-user or Patient requires assistance to transfer/change position No, Skin Screen is Negative Home Abuse/Violence Screen Is your home free of abuse and violence? Yes MOVE! Program Screen Body Mass Index (BMI)= 32.3 [place]: Collection DT Specimen Test Name Result Units Ref Range 02/27/2023 11:13 BLOOD !! HEMOGLOBIN A1C 5.6 % 4.0 - 6.0 !! Indicates COMMENTS AVAILABLE...Refer to Interim Lab Report. [facility] Hgb A1C: No data available [place] Hgb A1C: No data available Point of Care Hgb A1C: POC HGB A1C____ No Outpatient Nutrition Screen Body Mass Index (BMI)= 32.3 [place]: Collection DT Specimen Test Name Result Units Ref Range 02/27/2023 11:13 BLOOD !! HEMOGLOBIN A1C 5.6 % 4.0 - 6.0 !! Indicates COMMENTS AVAILABLE...Refer to Interim Lab Report. [place] Hgb A1C: No data available [place] Hgb A1C: No data available Point of Care Hgb A1C: POC HGB A1C____ Is patient's BMI less than 18.5? No Does patient have swallowing, coughing, or chewing problems affecting oral intake? No Has patient experienced unplanned weight loss or gain greater than 10 pounds over the last 2 months? Yes Is patient's Hgb A1C (Glycosylated Hemoglobin) greater than 9.5? No Is patient receiving Total Parenteral Nutrition (TPN) or Tube Feedings? No Patient Health Education Screen BARRIERS/SPECIAL NEEDS: Hearing limitations PREFERRED STYLE OF LEARNING: Other: HANDS ON Client Assistive Service ([place]) Screen Does the patient require assistance with outpatient visit? No Homelessness/Food Insecurity Screen: In the past 2 months, have you been living in stable housing that you own, rent, or stay in as part of a household? Yes - Living in stable housing. Are you worried or concerned that in the next 2 months you may NOT have stable housing that you own, rent, or stay in as part of a household? No - Not worried about housing near future [facility] [place] reports the following: Within the past 12 months, you worried whether your food would run out before you got money to buy more. Never true Within the past 12 months, the food you bought just didn't last and you didn't have money to get more. Never true Food Assistance Programs [facility] Food Assistance Programs [facility] ADV DIR Notification and Screening: ADVANCE DIRECTIVE NOTIFICATION: Patient was given written notification of the following rights: 1. Accept or refuse any medical treatment. 2. Complete a durable power of regulatory attorney for health care. 3. Complete a living will. ADVANCE DIRECTIVE SCREENING: Does patient have an Advance Directive? The patient does not have an Advance Directive. The patient does not wish to create an Advance Directive for health care. Sexual Orientation: The patient thinks of their sexual orientation as: Straight or Heterosexual COVID-19 Immunization: Refused Pfizer Monovalent COVID-19 vaccine Immunization: COVID-19 ([employer]), MRNA, LNP-S, PF, LENIN-SUCROSE, 30 MCG/0.3 ML (AGES 12+ YEARS) Refusal Reason: PATIENT DECISION Patient refuses all immunization(s) in the COVID-19 group Date Documented: 06/30/24 12:48 Influenza Immunization: Influenza, Trivalent, Preservative Free (Fluarix-Syringe) Administered: INFLUENZA, SPLIT VIRUS, TRIVALENT, PF Date Administered: Jun 30, 2024 12:30 Security Installer: IDx Lot: [id number] Exp Date: Feb 08, 2025 [facility]: [id number] Admin Route/Site: INTRAMUSCULAR/LEFT DELTOID Dosage: 0.5mL Vaccine Information Statement(s): INFLUENZA(FLU) VACC(INACTIVATED OR RECOMBINANT)VIS Mar 17, 2021 (TRINIDADIAN) Order By: Laly Ferrara Administered By: Lorenzo Mccoy The Influenza Vaccine Information Statement (VIS) was reviewed with the patient/caregiver which lists the benefits and risks of the vaccine and the risks of not receiving the Influenza vaccine. The patient/caregiver denied any prior severe reaction to this vaccine or its components or a severe allergic reaction, such as anaphylaxis, to any vaccine or any injectable therapy. The patient/caregiver gave verbal consent to receive the vaccine. /kun/ LORENZO MCCOY LPN LICENSED PRACTICAL NURSE Signed: 06/30/2024 12:53 LORENZO MCCOY [facility]
[2024-12-14 12:19] VITALS: BP 147/94; PULSE 98; RESP 18; TEMP 35.6; O2SAT 96; BMI 30.1
--- NOTE | 2024-12-14 12:49 | CRLHL7_ITS ---
For Patients: As a result of the Cures Act, medical imaging exams and procedure reports are released immediately into your electronic medical record. You may view this report before your referring provider. If you have questions, please contact your health care provider. INDICATION: Chest pain. TECHNIQUE: Chest 2 views. COMPARISON: 01/07/2023. FINDINGS: No pneumothorax or pleural effusion. Lungs are clear. Cardiac and mediastinal contours are within normal limits. Upper abdomen and osseous structures as imaged show no acute abnormality. IMPRESSION: No evidence of acute cardiopulmonary disease. Dictated by Chaitanya Lujan MD @ 12/14/2024 1:20:19 PM (Electronically Signed)
--- OUTSIDE RECORDS SUMMARY | 2024-12-14 13:17 | XMS_ITS | Continuity of Care Document ---
Author Name [facility] Organization 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 Unavailable Unavailable Problems Combined list of problems from Department of Defense and Veterans Affairs facilities. It does not include entries that were removed or entered in error. Problem Status Onset Date Problem Type Date of Resolution Comments Source Paroxysmal Atrial Fibrillation ([facility] [id number]) Active 01/02/20 23 Condition Jun 30, 2024 Entered By: LALY FERRARA Comment: [facility] records sent by fax is reviewed and will be scanned to chartNov 2023 Entered By: LALY FERRARA Comment: see 09/18/23 result letter for 03/2023 ECHO from [place] [facility] is scannedFeb 2023 Entered By: LALY FERRARA Comment: Normal LVEF [facility] Tinea corporis Active 11/09/19 18 Condition DoD Encounter for examination of ears and hearing without abnormal findings Active 10/04/19 18 Condition DoD Encounter for screening for intestinal infectious diseases Active 06/16/20 17 Condition DoD Unspecified superficial injury of left little finger Active Condition DoD Nondisplaced fracture of body of scapula, right shoulder Active Condition DoD Alcohol abuse Active Condition [facility] Allergic Rhinitis ([facility] [id number]) Active Condition [facility] Body mass index 30+ - obesity Active Condition [facility] Chronic pain Active Condition Jun 30, 2024 Entered By: LALY FERRARA Comment: TOTAL SC- 90% ; LUMBOSACRAL OR CERVICAL STRAIN (20%-SC)Jun 30, 2024 Entered By: LALY FERARRA Comment: LIMITED MOTION OF WRIST (10%-SC)Jun 30, [...] FERRARA Comment: PARALYSIS OF SCIATIC NERVE (10%-SC) [facility] elevated uric acid Active Condition [facility] Family social history Active Condition Feb 27, 2023 Entered By: LALY FERRARA Comment: Moved from [place] to Live with Girl Friend( works at [employer])Feb 27, 2023 Entered By: LALY FERRARA 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, [place] Entered By: LALY FERRARA Comment: QUIT [...] low calorie and 5% alcohol malted drink [facility] Gastroesophageal reflux disease Active Condition [facility] Generalized anxiety disorder Active Condition [facility] History of surgery Active Condition N 2023 Entered By: LALY FERRARA Comment: S/P RIB EXCISION [facility] Hyperlipidemia ([facility] [id number]) Active Condition [facility] Liver enzymes abnormal Active Condition [facility] Major depressive disorder Active Condition Jun 30, 2024 Entered By: LALY FERRARA Comment: TOTAL SC-90%:MAJOR DEPRESSIVE DISORDER (50%-SC) [facility] Nicotine dependence Active Condition Feb 27, 2023 Entered By: LALY FERRARA Comment: USES E CIGS [facility] Obstructive Sleep Apnea of Adult ([facility] [id number]) Active Condition Jun 30, 2024 Entered By: LALY FERRARA Comment: TOTAL SC-90%:SLEEP APNEA SYNDROMES (30%-SC)Mar 15, 2023 Entered By: LALY FERRARA Comment: Seen in Sleep clinic-CPAP recommended [facility] 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 Mar 15, 2023 Entered By: LALY FERRARA Comment: ZIO Completed, see 03/15/23 letter for details [facility] Tinnitus Active Condition Jun 30 24 Entered By: LALY FERRARA Comment: TOTAL SC-90%:TINNITU S (10%-SC) [facility] Varicocele Active Condition Jun 30 Entered By: LALY FERRARA Comment: TOTAL SC-90%:VARICOC MONSERRAT/HYDROCELE (0%-SC) [facility] Vitamin D Deficiency ([facility] [id number]) Active Condition [facility] No Known Problems Active Condition Unkn own Organization Diagnosis: ICD-10-CM F41.1 Generalized anxiety disorder Active Diagnosis [facility] Diagnosis: ICD-10-CM Z23 Encounter for immunization Active Diagnosis [facility] Diagnosis: ICD-10-CM Z00.01 Encounter for general adult medical exam w abnormal findings Active Diagnosis [facility] Diagnosis: ICD-10-CM G47.33 Obstructive sleep apnea (adult) (pediatric) Active Diagnosis [place] [facility] Medications Combined list of outpatient medications from [...] DAY NEEDED FOR PAIN ORAL ACTIVE 07/01/2025 [id number] GAB FERRARA S 2023 30 [facility] CHOLECALCIF MANUEL 25MCG (1,000UNIT) TAB TAKE ONE TABLET BY MOUTH EVERY DAY VITAMIN D DAILY IN WINTER MONTHS ORAL ACTIVE 07/01/2025 [id number] 5 GAB FERRARA S 2023 100 [facility] DULOXETINE HCL 30MG CAP,EC TAKE THREE CAPSULES BY MOUTH EVERY DAY FOR ANXIETY ORAL ACTIVE 09/18/2025 [id number] 5 DO GILDA TREVION 2024 270 [facility] DULOXETINE HCL 30MG CAP,EC TAKE ONE CAPSULE BY MOUTH EVERY DAY FOR 10 DAYS, THEN TAKE TWO CAPSULES EVERY DAY FOR ANXIETY ORAL DISCONT INUED (EDIT) 09/09/2024 [id number] 4 DO GILDA TREVINO 2023 120 [facility] DULOXETINE HCL 60MG CAP,EC TAKE ONE CAPSULE BY MOUTH EVERY DAY FOR ANXIETY ORAL DISCONT INUED (EDIT) 08/22/2025 [id number] 5 DO GILDA TREVINO 2024 90 [facility] ESCITALOPRA M OXALATE 10MG TAB TAKE ONE TABLET BY MOUTH EVERY DAY FOR ANXIETY ORAL 05/28/2024 [id number] 4 DO LEOPOLDO TREVINOLAS 2022 90 [facility] FLUTICASONE PROPIONATE 50MCG/SPRAY SOLN,NASAL, 16GM SPRAY 2 SPRAYS IN EACH NOSTRIL EVERY DAY NEEDED FOR CONGESTI ON NASAL ACTIVE 07/01/2025 [id number] 4 GAB FERRARA 2023 3 [facility] LORATADINE 10MG TAB TAKE ONE TABLET BY MOUTH EVERY DAY NEEDED FOR ALLERGIE S ORAL ACTIVE 07/01/2025 [id number] 5 GAB FERRARA 2023 90 [facility] MULTIVITAMI NS CAP/TAB TAKE 1 TABLET BY MOUTH EVERY DAY FOR SUPPLEME NT ORAL ACTIVE 07/01/2025 [id number] 4 GAB FERRARA MO S 2023 100 [facility] NALTREXONE (EQV-REVIA) 50MG TAB TAKE ONE TABLET BY MOUTH EVERY DAY TO REDUCE CRAVINGS ORAL DISCONT INUED BY PROVIDE R 07/07/2025 [id number] 4 DO GILDA TREVINO 2023 90 [facility] Naprosyn 500 mg oral tablet 1 tab(s), Oral, BID, X 10 days, # 20 tab(s), 0 total refill(s ), Acute, 11/24/20 3:29:00 PM CDT, Route to [facility] Oral (given by mouth) Complet ed 11/24/2020 1 2020 20.0 [facility]24[facility] NICOTINE POLACRILEX 2MG LOZENGE DISSOLVE 1 LOZENGE IN MOUTH EVERY 4 HOURS NEEDED TO QUIT TOBACCO ORAL ACTIVE 07/01/2025 [id number] 4 GAB FERRARA MO S 2023 72 [facility] OMEPRAZOLE 20MG CAP,EC TAKE ONE CAPSULE BY MOUTH EVERY DAY NEEDED FOR [place]ART[place] N ORAL ACTIVE 07/01/2025 [id number] 4 GAB FERRARA MO S 2023 90 [facility] PreviDent 5000 Plus topical paste 1 appl(s), Topical, BID, [place] with pea sized amount morning and night for 2 minutes. Spit out excess and do not rinse. Do not eat or drink for 30 minutes. , # 51 g, 3 total refill(s ), [facility], Pharmacy : [facility] Topica l (on the skin) Ordered 2020 51.0 0457C-[facility] Zofran ODT 4 mg oral tablet, disintegrat ing 1 tab(s), Oral, every 8 hr, PRN nausea/v omiting, # 20 tab(s), 0 total refill(s ), Maintena nce, Route to [facility] Oral (given by mouth) Ordered 1 2020 20.0 [facility] Allergies, Adverse Reactions, Alerts Combined list of allergies from Department of Defense and Veterans Affairs facilities. It does not include entries that were removed or entered in error. Substance Category Reaction Severity Reaction type Status Date Reported Comments Source No Known Allergies Drug allergy (disorder) active 03/27/2017 [facility] Immunizations Combined list of available immunizations from the Department of Defense and Veterans Affairs facilities. Immunization Series Date Given Administered By Site Reaction Lot Number CVX Code Drug Car Pick Up Driver Status Comments Source HPV9 2 2024 TRE STALEY OLE JENNIFER LEFT DELTO ID [id number] 165 complet ed [facility] HPV9 1 2023 TRE STALEY OLE JENNIFER LEFT DELTO ID [id number] 165 complet ed [facility] INFLUENZA, SPLIT VIRUS, TRIVALENT, PF 2023 LORENZO ENAMORADO LEFT DELTO ID [id number] 140 complet ed [facility] COVID Vaccine Pfizer 2020 [id number] Anmol Ly tariq, left (delt oid) [id number] PFIZER complet ed COVID Vaccine Pfizer 01/30/21 Given [facility]24[facility] COVID-19 (PFIZER), MRNA, LNP-S, PF, 30 MCG/0.3 ML DOSE 2 2020 208 complet ed HISTORICA L INFORMATI ON - FROM PATIENT'S RECALL, [employer] COVID Vaccine Pfizer 2020 KIKA Ly tariq, left (delt oid) [id number] 208 PFIZER complet ed COVID Vaccine Pfizer 12/08/20 Given [facility]24[facility] COVID-19 (PFIZER), MRNA, LNP-S, PF, 30 MCG/0.3 ML DOSE 1 2020 208 complet ed HISTORICA L INFORMATI ON - FROM PATIENT'S RECALL, [employer] influenza, injectable, quadrivalent 2018 [id number] 158 Se[employer]irus complet ed influenza , injectabl e, quadrival ent 07/02/19 Given Ambulat ory Pharmac y influenza, injectable, quadrivalent, contains preservative 0 2018 [id number] 158 [employer] (SEQ) complet ed influenza , injectabl e, quadrival ent, contains preservat jossie DoD typhoid vaccine, inactivated 2018 [id number] Citizen Of [place] [employer] [place] complet ed typhoid vaccine, inactivat ed 12/05/18 Given Ambulat ory Pharmac y typhoid vaccine, parenteral, other than acetone-kille d, dried 1 2018 [id number] 41 Vastech ([facility]) complet ed typhoid vaccine, parentera l, other than acetone-k illed, dried DoD influenza, injectable, quadrivalent 2017 zzLef t Arm [id number] 1A 158 [employer] complet ed influenza , injectabl e, quadrival ent 06/13/18 Given Ambulat ory Pharmac y influenza, injectable, quadrivalent, contains preservative 1 2017 [id number] 1A 158 [employer] (SEQ) complet ed influenza [...] Ambulat ory Pharmac y Influenza, injectable, Madin [place] Canine Kidney, quadrivalent with preservative 0 2017 [id number] [employer] (SEQ) comple t ed Influenza , injectabl e, Madin [place] Canine Kidney, quadrival ent with preservat jossie DoD varicella virus vaccine 2016 zzLef t Arm [id number] 21 Merck & Company Inc complet ed varicella virus vaccine 05/27/17 Given Ambulat ory Pharmac y measles/mumps /rubella virus vaccine [facility] [id number] 03 Merck & Company Inc complet ed measles/m umps/rube lla virus vaccine 05/27/17 Given Ambulat ory Pharmac y measles, mumps and rubella virus vaccine 1 2016 BRADEN SALAZAR [id number] 03 Merck (MSD) complet ed measles, mumps and rubella virus vaccine DoD varicella virus vaccine 1 2016 BRADEN SALAZAR [id number] 21 Merck (MSD) complet ed varicella virus vaccine DoD TDAP 2016 115 complet ed HISTORICA L INFORMATI ON - FROM PATIENT'S RECALL, [employer] poliovirus vaccine, inactivated 2016 zPhil ht Arm [id number] 10 sanofi pasteur complet ed polioviru s vaccine, inactivat ed 04/26/17 Given Ambulat ory Pharmac y hepatitis A-hepatitis B vaccine 2016 zMeli t Arm [id number] 104 GlaxoSmithKli ne complet ed hepatitis A-hepatit is B vaccine 04/26/17 Given Ambulat ory Pharmac y poliovirus vaccine, inactivated 1 2016 JUDY KELLER [id number] 10 Sanofi Pasteur ([facility]) complet ed polioviru s vaccine, inactivat ed DoD hepatitis A and hepatitis B vaccine 1 2016 JUDY KELLER [id number] 104 Smithine (SKB) complet ed hepatitis A and hepatitis B vaccine DoD varicella virus vaccine 2016 zzLef t Arm [id number] 21 GlaxoSmithKli ne complet ed varicella virus vaccine 04/04/17 Given Ambulat ory Pharmac y measles/mumps /rubella virus vaccine 2016 zPhil Arm [id number] 03 Merck & Company Inc complet ed measles/m umps/rube lla virus vaccine 04/04/17 Given Ambulat ory Pharmac y measles, mumps and rubella virus vaccine 1 2016 BRADEN SALAZAR [id number] 03 Merck (MSD) complet ed measles, mumps and rubella virus vaccine DoD varicella virus vaccine 1 2016 BRADEN SALAZAR [id number] 21 SmithKline (SKB) complet ed varicella virus vaccine DoD adenovirus vaccine, live 2016 [id number] 143 Teva Pharmaceutica complet ed adenoviru [...] meningococcal A,C,Y,W-135 (MCV4P) 2016 zzLef t Arm [id number] 114 sanofi pasteur complet ed meningoco ccal A,C,Y,W-1 35 (MCV4P) 03/27/17 Given Ambulat ory Pharmac y tuberculin purified protein derivative 2016 zzLef t Arm [id number] 96 sanofi pasteur complet ed tuberculi n purified protein derivativ e 03/27/17 Given Ambulat ory Pharmac y pneumococcal polysaccharid e, 23 valent [facility] [id number] 33 Merck & Company Inc complet ed pneumococ jocelyne polysacch aride, 23 valent 03/27/17 Given Ambulat ory Pharmac y pneumococcal polysaccharid e vaccine, 23 valent 1 2016 MYRNA HOLLAND [id number] 33 Merck (MSD) complet ed pneumococ jocelyne polysacch aride vaccine, 23 valent DoD tuberculin skin test; purified protein derivative solution, intradermal 1 2016 MYRNA HOLLAND [id number] 96 Sanofi Pasteur (PMC) complet ed tuberculi n skin test; purified protein derivativ e solution, intraderm al DoD hepatitis A and hepatitis B vaccine 1 2016 MYRNA HOLLAND [id number] [place] [employer] [employer] [place] (SKB) complet ed hepatitis A and hepatitis B vaccine DoD meningococcal polysaccharid e (groups A, C, Y and W-135) diphtheria toxoid conjugate vaccine (MCV4P) 1 2016 MYRNA HOLLAND [id number] 114 Sanofi Pasteur (PMC) complet ed meningoco ccal polysacch aride (groups A, C, Y and W-135) diphtheri a toxoid conjugate vaccine (MCV4P) DoD tetanus toxoid, reduced diphtheria toxoid, and acellular pertu is vaccine, adsorbed 1 2016 MYRNA HOLLAND [id number] [address] [place], [place] [address] ([facility]) complet ed tetanus toxoid, reduced diphtheri a toxoid, and acellular pertussis vaccine, adsorbed DoD Adenovirus, type 4 and type 7, live, oral 1 2016 MYRNA HOLLAND [id number] 4 143 [employer] (BRR) complet ed Adenoviru s, type 4 and type 7, live, oral DoD PNEUMOCOCCAL POLYSACCHARID E PPV23 2016 33 complet ed HISTORICA L INFORMATI ON - FROM PATIENT'S RECALL, [employer] Results Combined list of recent chemistry, hematology [...] Feb 27, 2023 10:46 AM Reporting Lab: [facility] [phone] Performing Lab: [facility] [address] [facility] MICROALB UMIN/CRE ATININE RATIO URINE MICROALBUM IN/CREATIN INE [MASS RATIO] IN URINE 8.8 mg/g{cre at} 02/27 Specimen Type: URINE No comment entered. Ordering Provider: LALY FERRARA Report Released Date/Time: Feb 27, 2023 10:46 AM Reporting Lab: [facility] [address] Performing Lab: [facility] [address] [facility] MICROALB UMIN/CRE ATININE RATIO URINE MICROALBUM IN [MASS/VOLU ME] IN URINE 12.5 mg/L 02/27 Specimen Type: URINE No comment entered. Ordering Provider: LALY FERRARA Report Released Date/Time: Feb 27, 2023 10:46 AM Reporting Lab: [facility] [address] Performing Lab: [facility] [address] [facility] ALT/SGPT ALANINE AMINOTRANS FERASE [ENZYMATIC ACTIVITY/V [...] Feb 27, 2023 10:46 AM Reporting Lab: [facility] [address] Performing Lab: [facility] [address] [facility] AST/SGOT ASPARTATE AMINOTRANS FERASE [ENZYMATIC ACTIVITY/V [...] Feb 27, 2023 10:46 AM Reporting Lab: [facility] [address] Performing Lab: [facility] [address] [facility] B 12 COBALAMIN (VITAMIN B12) [MASS/VOLU ME] IN SERUM OR PLASMA 631 pg/mL 213 - 816 02/27 Specimen Type: SERUM No comment entered. Ordering Provider: LALY FERRARA Report Released Date/Time: Feb 27, 2023 10:46 AM Reporting Lab: [facility] [address] Performing Lab: [facility] [address] [facility] BASIC METABOLI C PANEL+MG CREATININE [MASS/VOLU [...] Feb 27, 2023 10:46 AM Reporting Lab: [facility] [address] Performing Lab: [facility] [address] [facility] BASIC METABOLI C PANEL+MG UREA NITROGEN [...] Feb 27, 2023 10:46 AM Reporting Lab: [facility] [address] Performing Lab: [facility] [address] [facility] BASIC METABOLI C PANEL+MG GLUCOSE [MASS/VOLU ME] IN SERUM OR PLASMA 88 mg/dL 70 - 100 02/27 Specimen Type: PLASMA Comment: Elevated triglycerid e result from a non-fasting specimen should be interpreted with caution. A fasting panel is recommended for accurate triglycerid es when trigs are >200 from a non-fasting specimen. Ordering Provider: LALY FERARRA Report Released Date/Time: Feb 27, 2023 10:46 AM Reporting Lab: [facility] [address] Performing Lab: [facility] [address] [facility] BASIC METABOLI C PANEL+MG SODIUM [MOLES/VOL [...] Feb 27, 2023 10:46 AM Reporting Lab: [facility] [address] Performing Lab: [facility] [address] [facility] BASIC METABOLI C PANEL+MG POTASSIUM [MOLES/VOL [...] Feb 27, 2023 10:46 AM Reporting Lab: [facility] [address] Performing Lab: [facility] [address] [facility] BASIC METABOLI C PANEL+MG CHLORIDE [MOLES/VOL UME] [...] Feb 27, 2023 10:46 AM Reporting Lab: [facility] [address] Performing Lab: [facility] [address] [facility] BASIC METABOLI C PANEL+MG CARBON DIOXIDE, TOTAL [MOLES/VOL UME] IN SERUM OR PLASMA 24 mmol/L 22 - 29 02/27 Specimen Type: PLASMA Comment: Elevated triglycerid e result from a non-fasting specimen should be interpreted with caution. A fasting panel is recommended for accurate triglycerid es when trigs are >200 from a non-fasting specimen. Ordering Provider: LALY FERRARA S Report Released Date/Time: Feb 27, 2023 10:46 AM Reporting Lab: [facility] [address] Performing Lab: [facility] [address] [facility] BASIC METABOLI C PANEL+MG CALCIUM [MASS/VOLU ME] [...] Feb 27, 2023 10:46 AM Reporting Lab: [facility] [address] Performing Lab: [facility] [address] [facility] BASIC METABOLI C PANEL+MG MAGNESIUM [MASS/VOLU ME] IN SERUM OR PLASMA 2.1 mg/dL 1.6 - 2.6 02/27 Specimen Type: PLASMA Comment: Elevated triglycerid e result from a non-fasting specimen should be interpreted with caution. A fasting panel is recommended for accurate triglycerid es when trigs are >200 from a non-fasting specimen. Ordering Provider: LLAY FERRARA Report Released Date/Time: Feb 27, 2023 10:46 AM Reporting Lab: [facility] [address] Performing Lab: [facility] [address] [facility] BASIC METABOLI C PANEL+MG ANION GAP IN [...] Feb 27, 2023 10:46 AM Reporting Lab: [facility] [address] Performing Lab: [facility] [address] [place] BASIC METABOLI C PANEL+MG GLOMERULAR FILTRATION RATE/1.73 [...] Feb 27, 2023 10:46 AM Reporting Lab: [facility] [address] Performing Lab: [facility] [address] [facility] CBC & DIFF LEUKOCYTES [#/VOLUME] IN BLOOD BY AUTOMATED COUNT 6.88 10*3/uL 4.0 - 11.0 02/27 Specimen Type: BLOOD Comment: Automated Differentia l Performed Ordering Provider: LALY FERRARA Report Released Date/Time: Feb 27, 2023 10:46 AM Reporting Lab: [facility] [address] Performing Lab: [facility] [address] [facility] CBC & DIFF ERYTHROCYT ES [#/VOLUME] IN BLOOD BY AUTOMATED COUNT 5.13 10*6/uL 4.6 - 6.2 02/27 Specimen Type: BLOOD Comment: Automated Differentia l Performed Ordering Provider: LALY FERRARA Report Released Date/Time: Feb 27, 2023 10:46 AM Reporting Lab: [facility] [address] Performing Lab: [facility] [address] [facility] CBC & DIFF HEMOGLOBIN [MASS/VOLU ME] IN BLOOD 15.0 g/dL 13.5 - 17.9 02/27 Specimen Type: BLOOD Comment: Automated Differentia l Performed Ordering Provider: LALY FERRARA Report Released Date/Time: Feb 27, 2023 10:46 AM Reporting Lab: [facility] [address] Performing Lab: [facility] [address] [facility] CBC & DIFF HEMATOCRIT [VOLUME FRACTION] OF BLOOD BY AUTOMATED COUNT 44.6 41 - 54 02/27 Specimen Type: BLOOD Comment: Automated Differentia l Performed Ordering Provider: LALY FERRARA Report Released Date/Time: Feb 27, 2023 10:46 AM Reporting Lab: [facility] [address] Performing Lab: [facility] [address] [facility] CBC & DIFF MCV [ENTITIC VOLUME] BY AUTOMATED COUNT 86.9 fL 80 - 100 02/27 Specimen Type: BLOOD Comment: Automated Differentia l Performed Ordering Provider: LALY FERRARA Report Released Date/Time: Feb 27, 2023 10:46 AM Reporting Lab: [facility] [address] Performing Lab: [facility] [address] [facility] CBC & DIFF MCH [ENTITIC MASS] BY AUTOMATED COUNT 29.2 pg 27 - 33 02/27 Specimen Type: BLOOD Comment: Automated Differentia l Performed Ordering Provider: LALY FERRARA Report Released Date/Time: Feb 27, 2023 10:46 AM Reporting Lab: [facility] [address] Performing Lab: [facility] [address] [facility] CBC & DIFF MCHC [MASS/VOLU ME] BY AUTOMATED COUNT 33.6 g/dL 32.0 - 37.5 02/27 Specimen Type: BLOOD Comment: Automated Differentia l Performed Ordering Provider: LALY FERRARA Report Released Date/Time: Feb 27, 2023 10:46 AM Reporting Lab: [facility] [address] Performing Lab: [facility] [address] [facility] CBC & DIFF PLATELETS [#/VOLUME] IN BLOOD BY AUTOMATED COUNT 298 10*3/uL 150 - 400 02/27 Specimen Type: BLOOD Comment: Automated Differentia l Performed Ordering Provider: LALY FERRARA Report Released Date/Time: Feb 27, 2023 10:46 AM Reporting Lab: [facility] [address] Performing Lab: [facility] [address] [facility] CBC & DIFF PLATELET MEAN VOLUME [ENTITIC VOLUME] IN BLOOD BY AUTOMATED COUNT 9.7 fL 7.4 - 10.4 02/27 Specimen Type: BLOOD Comment: Automated Differentia l Performed Ordering Provider: LALY FERRARA Report Released Date/Time: Feb 27, 2023 10:46 AM Reporting Lab: [facility] [address] Performing Lab: [facility] [address] [facility] CBC & DIFF NEUTROPHIL S/100 LEUKOCYTES IN BLOOD BY MANUAL COUNT 64.7 02/27 Specimen Type: BLOOD Comment: Automated Differentia l Performed Ordering Provider: LALY FERRARA Report Released Date/Time: Feb 27, 2023 10:46 AM Reporting Lab: [facility] [address] Performing Lab: [facility] [address] [facility] CBC & DIFF LYMPHOCYTE S/100 LEUKOCYTES IN BLOOD BY MANUAL COUNT 23.5 02/27 Specimen Type: BLOOD Comment: Automated Differentia l Performed Ordering Provider: LALY FERRARA Report Released Date/Time: Feb 27, 2023 10:46 AM Reporting Lab: [facility] [address] Performing Lab: [facility] [address] [facility] CBC & DIFF MONOCYTES/ 100 LEUKOCYTES IN BLOOD BY AUTOMATED COUNT 9.2 02/27 Specimen Type: BLOOD Comment: Automated Differentia l Performed Ordering Provider: LALY FERRARA Report Released Date/Time: Feb 27, 2023 10:46 AM Reporting Lab: [facility] [address] Performing Lab: [facility] [address] [facility] CBC & DIFF EOSINOPHIL S/100 LEUKOCYTES IN BLOOD BY AUTOMATED COUNT 1.6 02/27 Specimen Type: BLOOD Comment: Automated Differentia l Performed Ordering Provider: LALY FERRARA Report Released Date/Time: Feb 27, 2023 10:46 AM Reporting Lab: [facility] [address] Performing Lab: [facility] [address] [facility] CBC & DIFF BASOPHILS/ 100 LEUKOCYTES IN BLOOD BY MANUAL COUNT 0.7 02/27 Specimen Type: BLOOD Comment: Automated Differentia l Performed Ordering Provider: LALY FERRARA Report Released Date/Time: Feb 27, 2023 10:46 AM Reporting Lab: [facility] [address] Performing Lab: [facility] [address] [facility] CBC & DIFF ERYTHROCYT E DISTRIBUTI ON WIDTH [RATIO] BY AUTOMATED COUNT 12.0 11.5 - 14.5 02/27 Specimen Type: BLOOD Comment: Automated Differentia l Performed Ordering Provider: LALY FERRARA Report Released Date/Time: Feb 27, 2023 10:46 AM Reporting Lab: [facility] [address] Performing Lab: [facility] [address] [facility] CBC & DIFF LYMPHOCYTE S [#/VOLUME] IN BLOOD BY AUTOMATED COUNT 1.62 10*3/uL 1.0 - 4.0 02/27 Specimen Type: BLOOD Comment: Automated Differentia l Performed Ordering Provider: LALY FERRARA Report Released Date/Time: Feb 27, 2023 10:46 AM Reporting Lab: [facility] [address] Performing Lab: [facility] [address] [facility] CBC & DIFF MONOCYTES [#/VOLUME] IN BLOOD BY AUTOMATED COUNT 0.63 10*3/uL 0.1 - 1.0 02/27 Specimen Type: BLOOD Comment: Automated Differentia l Performed Ordering Provider: LALY FERRARA Report Released Date/Time: Feb 27, 2023 10:46 AM Reporting Lab: [facility] [address] Performing Lab: [facility] [address] [facility] CBC & DIFF NEUTROPHIL S [#/VOLUME] IN BLOOD BY AUTOMATED COUNT 4.45 10*3/uL 2.0 - 7.7 02/27 Specimen Type: BLOOD Comment: Automated Differentia l Performed Ordering Provider: LALY FERRARA Report Released Date/Time: Feb 27, 2023 10:46 AM Reporting Lab: [facility] [address] Performing Lab: [facility] [address] [facility] CBC & DIFF EOSINOPHIL S [#/VOLUME] IN BLOOD BY AUTOMATED COUNT 0.11 10*3/uL 0 - 0.5 02/27 Specimen Type: BLOOD Comment: Automated Differentia l Performed Ordering Provider: LALY FERRARA Report Released Date/Time: Feb 27, 2023 10:46 AM Reporting Lab: [facility] [address] Performing Lab: [facility] [address] [facility] CBC & DIFF BASOPHILS [#/VOLUME] IN BLOOD BY AUTOMATED COUNT 0.05 10*3/uL 0 - 0.2 02/27 Specimen Type: BLOOD Comment: Automated Differentia l Performed Ordering Provider: LALY FERRARA Report Released Date/Time: Feb 27, 2023 10:46 AM Reporting Lab: [facility] [address] Performing Lab: [facility] [address] [facility] CBC & DIFF IG(META,MY ANAM,PRO) 0.3 02/27 Specimen Type: BLOOD Comment: Automated Differentia l Performed Ordering Provider: LALY FERRARA Report Released Date/Time: Feb 27, 2023 10:46 AM Reporting Lab: [facility] [address] Performing Lab: [facility] [address] [facility] CBC & DIFF IMMATURE GRANULOCYT ES [PRESENCE] IN BLOOD BY AUTOMATED COUNT 0.02 10*3/uL 0 - 0.1 02/27 Specimen Type: BLOOD Comment: Automated Differentia l Performed Ordering Provider: LALY FERRARA Report Released Date/Time: Feb 27, 2023 10:46 AM Reporting Lab: [facility] [address] Performing Lab: [facility] [address] [facility] HEMOGLOB IN A1C HEMOGLOBIN A1C/HEMOGL OBIN.TOTAL IN [...] Feb 27, 2023 10:46 AM Reporting Lab: [facility] [address] Performing Lab: [facility] [address] [facility] IRON GROUP IRON [MASS/VOLU ME] IN [...] Feb 27, 2023 10:46 AM Reporting Lab: [facility] [address] Performing Lab: [facility] [address] [facility] IRON GROUP IRON BINDING CAPACITY [MASS/VOLU [...] Feb 27, 2023 10:46 AM Reporting Lab: [facility] [address] Performing Lab: [facility] [address] [facility] IRON GROUP FERRITIN [MASS/VOLU ME] IN [...] Feb 27, 2023 10:46 AM Reporting Lab: [facility] [address] Performing Lab: [facility] [address] [facility] IRON GROUP IRON SATURATION 55 20 - 50 02/27 H Specimen Type: PLASMA Comment: Elevated triglycerid e result from a non-fasting specimen should be interpreted with caution. A fasting panel is recommended for accurate triglycerid es when trigs are >200 from a non-fasting specimen. Ordering Provider: FERRARA,LALY S Report Released Date/Time: Feb 27, 2023 10:46 AM Reporting Lab: [facility] [address] Performing Lab: [facility] [address] [facility] IRON GROUP TRANSFERRI N [MASS/VOLU ME] [...] Feb 27, 2023 10:46 AM Reporting Lab: [facility] [address] Performing Lab: [facility] [address] [facility] LIPID PANEL,NO N-FASTIN G CHOLESTERO L [...] Feb 27, 2023 10:46 AM Reporting Lab: [facility] [address] Performing Lab: [facility] [address] [facility] LIPID PANEL,NO N-FASTIN G CHOLESTERO L [...] Feb 27, 2023 10:46 AM Reporting Lab: [facility] [address] Performing Lab: [facility] [address] [facility] LIPID PANEL,NO N-FASTIN G CHOLESTERO L [...] Feb 27, 2023 10:46 AM Reporting Lab: [facility] [address] Performing Lab: [facility] [address] [facility] LIPID PANEL,NO N-FASTIN G CHOLESTERO L [...] Feb 27, 2023 10:46 AM Reporting Lab: [facility] [address] Performing Lab: [facility] [address] [facility] LIPID PANEL,NO N-FASTIN G CHOLESTERO L [...] Feb 27, 2023 10:46 AM Reporting Lab: [facility] [address] Performing Lab: [facility] [address] [facility] LIPID PANEL,NO N-FASTIN G TRIGLYCERI DE [...] Feb 27, 2023 10:46 AM Reporting Lab: [facility] [address] Performing Lab: [facility] [address] [facility] TSH W/REFLEX TO FREE T4 THYROTROPI [...] Feb 27, 2023 10:46 AM Reporting Lab: [facility] [address] Performing Lab: [facility] [address] [facility] Infectio us Disease HIV-1/2 AG/AB 4G CDD LC NEGATIVE 02/06 Result Comment: Performed At: [facility] [id number] [place] [address] [address] [place] [address] KARYNA MATOSN PHD Ph:[phone] [place] [address] [facility] Disease Source of Test.LC Gen Force Test (02/06/21 9:26 AM) 02/[address] [place] [address] [place] [facility] TSH 0.914 uIU/mL 0.500 - 5.000 02/01 N Interpretiv e Data: This assay has no biotin interferenc e in serum concentrati ons up to 1200 ng/mL [address] [place] [address] [place] [facility] Cholestero l Total 184 mg/dL 02/01 Interpretiv e Data: ADULT PEDIATRIC DESIRABLE: <200 <170 mg/dL BORDERLINE: 200-239 170-199 mg/dL HIGH: >239 >199 mg/dL [address] [place] [address] [place] [facility] Glucose Fasting 95 mg/dL 75 - 100 02/[address] [place] [address] [place] [facility] Troponin POC 0.000 ng/mL 0.000 - 0.030 11/[address] [place] [address] Coagulat ion D-Dimer (Quant) <200 ng/mLDDU 11/14 [...] in patients suspected of DVT and/or PE. [address] [place] [address] Hematolo gy Hemoglobin 13.5 g/dL 13.0 - 18.0 11/[address] [place] [address] Hematolo gy RBC 4.32 10^6/uL 4.40 - 5.74256 11/[address] [place] [address] Hematolo gy MCV 91.6 fL 80.0 - 100.0 11/[address] [place] [address] Hematolo gy Hematocrit 39.6 % 40.0 - 50.0 11/[address] [place], [place] [address]on Hematolo gy MCHC 34.0 g/dL 32.0 - 36.0 11/[address] [place] [address] Hematolo gy MCH 31.1 pg 26.0 - 34.0 11/[address] [place], [place] [address]on Hematolo gy WBC 7.3 10^3/uL 4.5 - 11.0103 11/[address] [place] [address] Hematolo gy Platelets 257 10^3/uL 150 - 591073 11/[address] [place], [place] [address]on Hematolo gy RDW 12.3 % 11.5 - 14.5 11/[address] [place], [place] [address]on Hematolo gy MPV 7.6 fL 6.5 - 10.0 11/[address] [place], [place] [address]on Hematolo gy Differenti al? Manual (11/14/20 12:09 PM) 11/[address] [place] [address] Chemistr y CRP UltraSens 0.550 mg/dL 0.000 - 0.747 11/[address] [place] [address] Infect us Disease RESP SYNCYTIAL VIRUS PCR Negative (11/14/20 12:09 PM) 11/[address] Disease Influenza A PCR Negative (11/14/20 12:09 PM) 11/[address] [place] [address] Disease Reason for Test? Diagnosi s (11/14/20 12:09 PM) 11/[address] [place] [address] Disease SARS-CoV-2 PCR Positive 6, 7 *CRIT* [...] testing.The se results were generated using the [facility] 2018-Novel Coronavirus (2018-nCoV) Real-time RT-PCR Diagnostic Panel. [...] treatment or other patient management decisions. The [facility] 2018-Novel Coronavirus (2018-nCoV) Real-time RT-PCR Diagnostic Panel + is only for use under the Food and Drug Administrat ion's Emergency Use Authorizati on. [address] [place] [address] [place] [facility] Disease Influenza B PCR Negative (11/14/20 12:09 PM) 11/[address] [place] [facility] Glucose Lvl 98 mg/dL 75 - 139 11/[address] [facility] BUN 11.5 mg/dL 8.0 - 26.0 11/[address] [place] [facility] Chloride 99 mmol/L 98 - 107 11/[address] [place] [facility] CO2 25 mmol/L 22 - 32 11/[address] [place] [facility] Sodium 134 mmol/L 136 - 145 11/[address] [place] [address] [place] [facility] Potassium Lvl 3.9 mmol/L 3.5 - 5.1 11/[address] [place] [facility] Albumin 4.6 g/dL 3.5 - 5.0 11/[address] [place] [facility] Protein Total 7.6 g/dL 6.4 - 8.3 11/[address] [facility] Bilirubin Total 0.40 mg/dL 0.30 - 1.20 11/14 N Interpretiv e Data: : High: 10 mg/dL 30 days-17 yrs 0.3-1.2 mg/dL ADULT: 0.3-1.2 mg/dL [address] [place] [address] [place] [facility] Alk Phos 98 U/L 38 - 126 11/[address] [place] [address] [facility] Bilirubin Direct <0.2 mg/dL 0.0 - 0.5 11/[address] [place] [address] [place] [facility] A/G Ratio 2 1 - 2 11/[address] [facility] Calcium 9.5 mg/dL 8.9 - 10.3 11/[address] [facility] ALT 95 U/L 17 - 63 11/[address] [facility] AGAP 10 mmol/mL 6 - 16 11/[address] [place] [facility] Creatinine Level 0.79 mg/dL 0.60 - 1.20 11/[address] [place] [facility] AST 43 U/L 15 - 41 11/[address] [place] [facility] Atyp Lymph Man 1 % 11/[address] [place] [address] [facility] Napa Man 13 % 4 - 11 11/[address] [place] [facility] Segs Man 78 % 40 - 80 11/[address] [place] [facility] Lymph Man 8 % 15 - 45 11/[address] [place] [address] [place] [facility] PLT Estimate Adequate (11/14/20 12:09 PM) 11/[address] [place] [facility] RBC Morph Normal (11/14/20 12:09 PM) 11/[address] [place] [facility] eGFR AA >60 mL/min/1 .73_m2 11/14 N [facility] [place] [facility] eGFR Non-AA >60 mL/min/1 .73_m2 11/14 N [facility] [place] Molecula r Infectio us Disease [...] Drug Administrat ion's Emergency Use Authorizati on. -[facility]ly [facility] Molecula r Infectio us Disease Reason for Test? Screenin g (08/30/20 1:04 PM) 08/30 N -[facility] Vital Signs Combined list of inpatient and outpatient Vital Signs from Department of Defense and Veterans Affairs, ranging from 12 months to all on record, depending upon the facility. Vital Sign Value Date Comments Source SYSTOLIC BLOOD PRESSURE 110 06/30/20 24 12:37:27 [facility] DIASTOLIC BLOOD PRESSURE 72 024 12:37:27 [facility] PULSE OXIMETRY 97 06/30/2024 12:37:27 [facility] WEIGHT 221.2 06/30/2024 12:37:27 [facility] BMI 32 kg/m2 06/30/2024 12:37:27 [facility] PAIN 5 06/30/2024 12:37:27 [facility] HEIGHT 69.5 06/30/2024 12:37:27 [facility] TEMPERATURE 97.1 06/30/2024 12:37:27 [facility] PULSE 70 06/30/2024 12:37:27 [facility] RESPIRATION 18 06/30/2024 12:37:27 [facility] Temperature Oral 37.3 Alice 11/14/2020 21:27:[address] [place] [address] Respiratory Rate 16 br/min 11/14/2020 21:27:[address] [place] [address] Peripheral Pulse Rate 94 bpm 11/14/2020 21:27:[address] [place] [address] Systolic Blood Pressure 130 mm[Hg] 11/15/19 21 21:27:[address] [place] [address] Diastolic Blood Pressure 71 mmol 021 21:27:[address] [place] [address] [place] Mean Arterial Pressure, Calc 91 mm[Hg] 11/14/2020 21:27:00 [facility] [place] Temperature Oral 37.3 Alice 11/14/2020 20:11:[address] [place] [address] [place] Peripheral Pulse Rate 91 bpm 11/14/2020 20:11:[address] [place] [address] [place] Systolic Blood Pressure 119 mm[Hg] 11/15/19 21 20:11:[address] [place] [address] [place] Diastolic Blood Pressure 68 mmol 021 20:11:00 [facility] [place] Mean Arterial Pressure, Calc 85 mm[Hg] 11/14/2020 20:11:[address] [place] [address] [place] Respiratory Rate 16 br/min 11/14/2020 20:11:[address] [place] [address] [place] Systolic Blood Pressure 138 mm[Hg] 11/15/19 21 18:47:[address] [place] [address] [place] Diastolic Blood Pressure 80 mmol 021 18:47:[address] [place] [address] [place] Peripheral Pulse Rate 118 bpm 11/14/2020 18:47:[address] [place] [address] [place] Respiratory Rate 20 br/min 11/14/2020 18:47:[address] [place] [address] [place] Temperature Oral 38.5 Alice 11/14/2020 18:47:[address] [place] [address] [place] Encounters Combined list of: 1) Encounters from Department of Veterans Affairs facilities going backup to the last 18 months, not all VA inpatient encounters are included; 2) Encounters from the Department of Defense facilities going backup to 280 months. Location Location Details Encounter Type Encounter Number Reason For Visit Attending Provider ADM Date DC Date Status Disposition Source [facility](LOBO smith) OUTPATIENT [id number] Notes Entered by: KATELYN ENRIQUE 26 Mar 2017 1524 ------- ------- ------- ------- -- SAMRA CARPENTER 03/26 Released w/o Limitations [facility](Mario Doshi Process ing) [facility](MCR D Recruit Processin g) OUTPATIENT [id number] Notes Entered by: Mario HARDEN 27 Mar 2017 0813 ------- ------- ------- ------- -- [facility] CLASS ALLA HARDEN 03/27 Released w/o Limitations [facility](M CRD Recruit Process ing) [facility](MCR D Optometry ) OUTPATIENT [id number] DAVID MASTERSON 03/29 Released w/o Limitations [facility]( CRD Optomet ry) [facility] D Recruit Processin g) OUTPATIENT [id number] T-3 VACCINE S RAYMOND WILSON 04/04 Released w/o Limitations [facility](M CRD Recruit Process ing) [facility](MCR D Recruit Sick Call) OUTPATIENT [id number] Cough x 3 days MAT SETH 04/11 Released with Work/Duty Limitations [facility](M CRD Recruit Sick Call) [facility](MCR D SALLY) OUTPATIENT [id number] left hand jose carloserat LYLE Daniel 04/23 Released with Work/Duty Limitations [facility](M CRD SALLY) [facility](MCR D Recruit Processin g) OUTPATIENT [id number] T-22 VACCINE S RAYMOND WILSON 04/26 Released w/o Limitations [facility](M CRD Recruit Process ing) [facility](31 ABC FP MHP) OUTPATIENT [id number] VOMITIN G/FEVER FREDELUCEMichael (LUCRECIA)KENJI 05/24 Sick at Home/Quarter s [facility](3 1 ABC FP MHP) [facility](MCR D Recruit Processin g) OUTPATIENT [id number] T-48 VACCINE S KEYLA OCAMPO 05/28 Released w/o Limitations [facility](M CRD Recruit Process ing) [facility](31 ABC FP MHP) OUTPATIENT [id number] EAN Lorenzo 06/18 Released w/o Limitations [facility](3 1 ABC FP MHP) [facility](MCR D Recruit Sick Call) OUTPATIENT [id number] COUGH/F EVER X 1 DAY MAT SETH Olga 06/19 Released w/o Limitations [facility](M CRD Recruit Sick Call) [facility] D Recruit Processin g) OUTPATIENT [id number] LIANNA BENI HERNANDEZ Mario 06/20 Released w/o Limitations [facility](M CRD Recruit Process ing) [facility] DARYL [facility](Oscar charles) OUTPATIENT [id number] Notes Entered by: CLAUDIA COHEN 27 Aug 2017 0750 ------- ------- ------- ------- -- JOCY Ontiveros 08/27 [facility] Limitations [facility](Oscar charles) OUTPATIENT [id number] Notes Entered by: SAL TABOR 25 Sep 2017 0710 ------- ------- ------- ------- -- HEADACH E/LIGHT SENSITI JOCY BREEN 09/25 [facility]ased with Work/Duty Limitations [facility] [place] [place] [facility](Oscar charles) OUTPATIENT [id number] Notes Entered by: CIERA FRIAS 01 Oct 2017 0959 ------- ------- ------- ------- -- sotckton/vomi t/nause MANUEL Steinberg 10/01 Sick at Home/Quarter s [facility] [place]) [facility] D[facility](Physic al Exam) OUTPATIENT [id number] [facility]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 TRISTA RODRÍGUEZ 10/02 Released w/o Limitations [facility](Phys ical Exam) [facility] DARYL [facility](Oscar charles) TELE CONSULT [id number] Notes Entered by: Linda FRANCE 02 Oct 2017 1344 ------- ------- ------- ------- -- Audiolo gy consult NABILA MONTIEL 10/02 Referred for Appointment [facility] DARYL [place]) [facility] DARYL [facility](Audiol ogy) OUTPATIENT [id number] [place] drivers 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 (needs a more detaile d exam than last exam) SHARIF Espinoza RAHELMIGUEL PALMER 10/04 Released w/o Limitations [facility] DARYL [facility](Yovany ology) [facility] DARYL [facility](Oscar charles) TELE CONSULT [id number] Notes Entered by: Ashvin RODRÍGUEZ 07 Oct 2017 0618 ------- ------- ------- ------- -- F/U [facility] Compliance Review Officer Cert / Hearing test TRISTA RODRÍGUEZ 10/07 [facility] [place] [place]) [facility] DARY[facility](Oscar charles) OUTPATIENT [id number] Notes Entered by: SAL TABOR 07 Oct 2017 0828 ------- ------- ------- ------- -- VOMIT, SORE THROAT, JAYDE REYNA 10/07 Sick at Home/Quarter s [facility] DARYL [facility](Vict oraraceli) [facility] DARYL [place](Oscar charles) OUTPATIENT [id number] Notes Entered by: SAL TABOR 17 Oct 2017 0716 ------- ------- ------- ------- -- SORE THROAT/ COLD SORE TRISTA RODRÍGUEZ 10/17 Released w/o Limitations [facility] [place]) [place]Oscar charles) OUTPATIENT [id number] Notes Entered by: CLAUDIA COHEN 08 Nov 2017 0628 ------- ------- ------- ------- -- pos TRISTA Marques 11/08 Released w/o Limitations [place](Vict [place]) [facility](13 ABC Smart/Spo rts Medicine) OUTPATIENT [id number] Notes Entered by: MARTHA RUBY 19 Dec 2017 0741 ------- ------- ------- ------- -- ipu/ visit/l t wrist/08 15 [facility] CARMEN MUÑOZ 12/19 Released w/o Limitations [facility](1 3 ABC Smart/S ports Medicin e) [facility](13 ABC Smart/Spo rts Medicine) OUTPATIENT [id number] Notes Entered by: MARTHA RUBY 23 Dec 2017 0716 ------- ------- ------- ------- -- ipu/3rd visit/l t wrist/1 4 [facility] MELISSA MILTON V 12/23 Released with Work/Duty Limitations [facility](1 3 ABC Smart/S ports Medicin e) [facility](13 ABC Smart/Spo rts Medicine) OUTPATIENT [id number] Notes Entered by: Mitch ZARATE 24 Dec 2017 0740 ------- ------- ------- ------- -- L WRIST/ [facility] CARMEN MUÑOZ 12/24 Released w/o Limitations [facility](1 3 ABC Smart/S ports Medicin e) [facility](13 ABC FP MHP Green Team) OUTPATIENT [id number] Notes Entered by: Mario PARADA 02 Jan 2018 0842 ------- ------- ------- ------- -- HEP A/B VACCINE (TWINRI X) LEYDI PARADA 01/02 Released w/o Limitations [facility](1 3 ABC [facility] Green Team) [facility](13 ABC Smart/Spo rts Medicine) OUTPATIENT [id number] Notes Entered by: Linda MORRELL 03 Jan 2018 0737 ------- ------- ------- ------- -- ipu/6th visit/ left wrist/ 14 ISABEL Monique 01/03 Released with Work/Duty Limitations [facility](1 3 ABC Smart/S ports Medicin e) [facility](13 ABC Hearing Conservat ion) OUTPATIENT [id number] ANNUAL AND NEG LEONA HOLDER 05/06 Released w/o Limitations [facility](1 3 ABC Hearing Conserv ation) [facility](13A [facility] OUTPATIENT [id number] 7TH ESB/ EPHA HUA ARAUJO 05/07 Released w/o Limitations [facility](1 3ABC 14[facility] Team) [facility](13A 14[facility] Team) OUTPATIENT [id number] 1 7TH ESB / FLU MICHELET RUELAS 06/13 Released w/o Limitations [facility](1 [address] [place] [address] Team) [facility](13 ABC Smart/Spo rts Medicine) OUTPATIENT [id number] Notes Entered by: MARTHA RUBY 25 Jul 2018 0833 ------- ------- ------- ------- -- ipu/1st visit/l t ankle 14 ISABEL Monique 07/25 Released w/o Limitations [facility](1 3 ABC Smart/S ports Medicin e) [facility](13 ABC Smart/Spo rts Medicine) OUTPATIENT [id number] Notes Entered by: Linda MORRELL 24 Mar 2019 0757 ------- ------- ------- ------- -- ipu/1st visit/ left ankle/ 14 ISABEL Monique A 03/24 Released w/o Limitations [facility](1 3 ABC Smart/S ports Medicin e) [facility](13 ABC Smart/Spo rts Medicine) OUTPATIENT [id number] Notes Entered by: MARTHA RUBY 24 Mar 2019 0832 ------- ------- ------- ------- -- ipu/lt foot per GEORGES Beaulieu 03/24 Released with Work/Duty Limitations [facility](1 3 ABC Smart/S ports Medicin e) [facility](13 ABC Smart/Spo rts Medicine) OUTPATIENT [id number] Notes Entered by: MARTHA RUBY 25 Mar 2019 0759 ------- ------- ------- ------- -- ipu/2nd visit/l t foot/14 janna ISABEL COBURN A 03/25 Released w/o Limitations [facility](1 3 ABC Smart/S ports Medicin e) [facility](13A 14Area [employer] Green Team) OUTPATIENT [id number] 7th esb DANIEL Holloway 05/07 Released w/o Limitations [facility]1 3[facility](13A [facility] [employer] Green Team) OUTPATIENT [id number] Notes Entered by: BEBO MCCLELLAN 02 Jul 2019 1032 ------- ------- ------- ------- -- 7 ESB IMMDELFINO BRUNER 07/02 Released w/o Limitations [facility](1 3ABC 14Area [employer] Green Team) [facility](CP Orthopedi cs) OUTPATIENT [id number] 7 fx ROHIT Pritchard 07/27 Released with Work/Duty Limitations [facility](C P Orthope dics) [facility](41a augusta [facility] Health) OUTPATIENT [id number] 4 AD 720&[id number] STEFANO/EMH E (CONTRERAS) DEANDRE ÁLVAREZ 08/24 Released w/o Limitations [facility]([address] [place] [address]) [facility]([address] [place] [address]) OUTPATIENT [id number] 8 AD STEFANO/EMH E (CONTRERAS) JOSE MARIA ROMERO 08/24 Released w/o Limitations [facility]([address] [place] [address]) [facility](CP Orthopedi cs) OUTPATIENT [id number] 1 f/u R scapula fx MICHAELPAVEL LINDQUIST BIA 08/25 Released w/o Limitations [facility](C P Orthope dics) [facility]([address] [place] [address]) OUTPATIENT [id number] Notes Entered by: DEANDRE ÁLVAREZ 01 Oct 2019 1023 ------- ------- ------- ------- -- AD STEFANO [id number] DEANDRE ÁLVAREZ 10/01 Released w/o Limitations [facility]([address] [place] [address]) [facility]([address] [place] [address]) OUTPATIENT [id number] Notes Entered by: MARIAM AVILES 01 Oct 2019 1032 ------- ------- ------- ------- -- AD STEFANO/EMH E paperwo MARIAM Ibarra 10/01 Released w/o Limitations [facility]([address] [place] [address]) [facility](33 Area Physical Therapy) OUTPATIENT [id number] 1 Nondisp laced fractur e of body of scapula , right shoulde r, subsequ ent encount HUA Chopra 10/19 Released w/o Limitations [facility](3 3 Area Physica l Therapy ) [facility](13A BC 14Area [facility] [facility] Green Team) OUTPATIENT [id number] Notes Entered by: ASHWINI DONALDSON 04 Nov 2019 1417 ------- ------- ------- ------- -- ESB/LEF T PINKY TRAUMA WESLEY TELLO 11/03 Released with Work/Duty Limitations [facility](1 3ABC 14[facility] CYPHER Team) [facility](CP Orthopedi cs) OUTPATIENT [id number] Notes Entered by: URBANO COLON 05 Nov 2019 0749 ------- ------- ------- ------- -- f/u left pinky; walk-in per ZARA Crowder 11/04 Released w/o Limitations [facility](C P Orthope dics) [facility](13A 14[facility]) TELE CONSULT [id number] Notes Entered by: LIZZY LYON 06 Nov 2019 0859 ------- ------- ------- ------- -- 7th ESB/ Sick call MELISSA ARREOLA 11/05 Other Not Elsewhere Classified [facility]([address] [place] [address] Jhon Team) [facility](CP Orthopedi cs) OUTPATIENT [id number] f/u left hand ZARA ELLIS 11/17 Released w/o Limitations [facility](C P Orthope dics) [facility](CP Orthopedi cs) OUTPATIENT [id number] 4 f/u left little finger distal tip avulsio n-[facility] ZARA ELLIS 01/25 Released w/o Limitations [facility](C P Orthope dics) [facility](CP Occupatio nal Therapy) OUTPATIENT [id number] Unspeci fied superfi cial injury of left little finger, subsequ ent encount MYRNA Mitchell 02/01 Released w/o Limitations [facility](C P Occupat ional Therapy ) [facility](13 ABC Occupatio nal Therapy) OUTPATIENT [id number] 02/15 Released w/o Limitations [facility](1 3 ABC Occupat ional Therapy ) [facility](13 ABC Hearing Conservat ion) OUTPATIENT [id number] ANNUAL (F) JOSÉ MIGUEL, LEONA D 04/08 Released w/o Limitations [facility](1 3 ABC Hearing Conserv ation) [facility](13A BC 14[facility] Jhon Team) OUTPATIENT [id number] 0 Notes Entered by: Leland GANT 26 Apr 2020827 ------- ------- ------- ------- -- 7th ESB/ePH LALITHA COX 04/26 Released w/o Limitations [facility](1 3ABC 14[facility] Jhon Team) [place] Encounter [id number] 06/20 [place] [facility] UNLISTED PULMONARY SVC/PX [id number] Diagnos is: ICD-10- CM G47.33 Obstruc tive sleep apnea (adult) ([facility]) DAMEON EDWARD 06/21 [facility] [place] Outpatient Encounter [id number] Diagnos is: ICD-10- CM G47.33 Obstruc tive sleep apnea (adult) ([facility] adam) EDER FREEMAN S 07/01 [facility] [employer] [place] [facility] SATELLITE TECHNICIAN STDY UNATTENDED [id number] Diagnos is: ICD-10- CM G47.33 Obstruc tive sleep apnea (adult) ([facility]) GRAYSON NOBLES 07/02 [facility] Outpatient Encounter [id number] 07/09 [facility] [place] [facility] PRO PHONE CALL 5-10 MIN [id number] Diagnos is: ICD-10- CM G47.33 Obstruc tive sleep apnea (adult) ([facility]) EDER FREEMAN S 07/09 [facility] [place] [facility] Out[facility] Encounter [id number] 07/19 [place] [facility] [place] [facility] Out[facility] Encounter [id number] 09/18 [place] [facility] [place] [facility] Encounter [id number] 12/12 [place] [facility] [place] [facility] Out[facility] Encounter [id number] 03/03 [place] [facility] OFFICE O/P EST HI 40 MIN [id number] Diagnos is: ICD-10- CM Z00.01 Encount er for general adult medical exam w abnorma l finding s RED FERRARA S 06/30 [facility] [place] [facility] Out[facility] Encounter [id number] 06/30 [place] [facility] OFFICE O/P EST MOD 30 MIN [id number] Diagnos is: ICD-10- CM F41.1 General ized anxiety disorde r URIEL,ELBA GLAS 07/06 [facility] IMMUNIZATI ON ADMIN [id number] Diagnos is: ICD-10- CM Z23 Encount er for immuniz ation USMAN STALEY 07/07 [facility] OFFICE O/P EST MOD 30 MIN [id number] Diagnos is: ICD-10- CM F41.1 General ized anxiety disorde r DO URIELU GLAS 08/21 [facility] IMM[facility]IZ[facility]I [facility] ADMIN [id number] Diagnos is: ICD-10- CM Z23 Encount er for immuniz ation SUNNY STALEYLE JENNIFER 08/21 [facility] [place] [facility] Outpatient Encounter [id number] 09/11 [place] [facility] [place] [facility] Out[facility] Encounter [id number] PAULINE TENORIO 09/16 [place] [facility] PSYTX W PT W E/M 30 MIN [id number] Diagnos is: ICD-10- CM F41.1 General ized anxiety disorde r ELBA TREVINO GLAS 10/21 [facility] Procedures Combined list of: 1) Procedures from Department of Veterans Affairs facilities going back up to thelast 18 months, not all [place] non-surgical procedures are included; 2) All procedures from the Department of Defense facilities. Procedure Procedure Type Code Date Perfomer Comments Sourc e DISTORTION PRODUCT EVOKED OTOACOUS EMISSIONS;LIMITED EVALUATION (TO CONFIRM THE PRESENCE/ABSENCE OF HEARING DISORDER,3-6 FREQUENCIES)/TRANSI ENT EVOKED OTOACOUS EMISSIONS,W INTERPRETATION &REPORT 2017 [facility] ADMINISTRATION OF PATIENT-FOCUSED HEALTH RISK ASSESSMENT INSTRUMENT (EG, HEALTH HAZARD APPRAISAL) WITH SCORING AND DOCUMENTATION, PER STANDARDIZED INSTRUMENT 2019 [facility] PURE TONE AUDIOMETRY (THRESHOLD), AUTOMATED; AIR ONLY 2019 DoD SUPP &MATERIAL (EXCEPT SPECTACLE),PROVID,T HE PHYS/OTH QUALIFIED HEALTH LAMINATION INSPECTOR OVER &ABOVE THOSE USUALLY INCLD W THE OFFICE VISIT/OTH SER RENDERED (LIST DRUG,TRAYS,SUPP,OR MATERIAL PROVID) 2019 DoD EXERCISE EQUIPMENT 2019 DoD THERAPEUTIC PROCEDURE, 1 OR MORE AREAS, [...] AFF BODY AREA,3+ ELEMENTS;CLIN DEC ABIGAIL,MOD;TYP,30 MIN,SPENT VWBM-PR-CMCP W PAT &/FAMILY 2018 DoD INTRAVENOUS INFUS,FOR [...] SCORING AND DOCUMENTATION, PER STANDARDIZED INSTRUMENT 2017 [facility] PURE TONE AUDIOMETRY (THRESHOLD), AUTOMATED; AIR ONLY [...] AFF BODY AREA,3+ ELEMENTS;CLIN DEC ABIGAIL,MOD;TYP,30 MIN,SPENT ARIV-FC-KUUM W PAT &/FAMILY 2017 DoD IMMUNIZATION ADMINISTRATION [...] VACCINE (MMR), LIVE, FOR SUBCUTANEOUS USE 2016 DoD OPHTHALMOLOGICAL SERVICES: MEDICAL EXAMINATION AND EVALUATION WITH INITIATION OF DIAGNOSTIC AND TREATMENT PROGRAM; INTERMEDIATE, NEW PATIENT 2016 [facility] HEPATITIS A AND HEPATITIS B VACCINE (HEPA-HEPB), ADULT DOSAGE, FOR INTRAMUSCULAR USE 2016 [facility] Modalities Cryotherapy Cold Packs Modalities Cryotherapy Cold Packs 34776 2017 COBURN, ISABEL A X 15 min to L ankle. [facility] Physical Therapy: ___ Se ion Segments, 15 Minutes Each Physical Therapy: ___ Session Segments, 15 Minutes Each 46987 2017 COBURN, ISABEL A Therex x 15 min to L ankle. [facility] Immunization Administration One Vaccine Immunization Administration One Vaccine 40295 2017 MICHELET ANDERSON [facility] Threshold Audiogram (Pure Tone) Automated Threshold Audiogram (Pure Tone) Automated 0208T 2017 LEONA VALDEZ [facility] Patient education, not otherwise cla ified, non-physician provider, group, per se ion 2017 LEONA VALDEZ [facility] Modalities Cryotherapy Cold Packs Modalities Cryotherapy Cold Packs 46033 2017 COBURN, ISABEL A X 15 min to L wrist. [facility] Physical Therapy: ___ Se ion Segments, 15 Minutes Each Physical Therapy: ___ Session Segments, 15 Minutes Each 86302 2017 COBURN, ISABEL A Therex x 30 min to L wrist. DoD Immunization Administration One Vaccine Immunization Administration One Vaccine 65108 2017 LEYDI PARADA [facility] Hepatitis A And Hepatitis B (Intramuscular Use) Adult Dosage Hepatitis A And Hepatitis B (Intramuscular Use) Adult Dosage 09967 2017 LEYDI PARADA Hep A-Hep B; Series #: 3; 1.0 mL; IM; Left Arm; Mfg: [employer]; Lot: [id number]; VIS given (Ana: 01/02/2018). [facility] Physical Therapy: ___ Se ion Segments, 15 Minutes Each Physical Therapy: ___ Session Segments, 15 Minutes Each 92593 2017 CARMEN MUÑOZ 35 min DoD Modalities Cryotherapy Cold Packs Modalities Cryotherapy Cold Packs 95073 2017 MELISSA MILTON V 15 min DoD Mobilization Soft Ti ue Mobilization Soft Tissue 70699 2017 MELISSA MILTON V passive ROM: flex/ ext/ pronation/ supination 10 min DoD Modalities Cryotherapy Cold Packs Modalities Cryotherapy Cold Packs 62360 2017 ISABEL COBURN X 15 min to L wrist. DoD Physical Therapy: ___ Se ion Segments, 15 Minutes Each Physical Therapy: ___ Session Segments, 15 Minutes Each 84282 2017 ISABEL COBURN Theex x 15 min to L wrist. [facility] Evoked Otoacoustic Gay ions Limited Evoked Otoacoustic Emissions Limited 85220 2017 [facility] Tympanometry With Reflex Threshold Measurements Tympanometry With Reflex Threshold Measurements 88509 2017 [facility] Comprehensive Audiometry Comprehensive Audiometry 22689 2017 [facility] Immunization Administration One Vaccine Immunization Administration One Vaccine 57949 2016 [facility] Vaccines Viral Measles, Mumps and Rubella, Live Vaccines Viral Measles, Mumps and Rubella, Live 29689 2016 DAMARIS [facility] Immunization Administration Each Additional Vaccine Immunization Administration Each Additional Vaccine 21582 2016 [facility] IV Infusion For Hydration 31 Minutes To 1 Hour IV Infusion For Hydration 31 Minutes To 1 Hour 32874 2016 FREDELUCES( LUCRECIA)KENJI [facility] Immunization Administration One Vaccine Immunization Administration One Vaccine 34945 2016 NAT [facility] Immunization Administration Each Additional Vaccine Immunization Administration Each Additional Vaccine 76785 2016 ALEXIS JOHNS [facility] Hepatitis A And Hepatitis B (Intramuscular Use) Adult Dosage Hepatitis A And Hepatitis B (Intramuscular Use) Adult Dosage 76950 2016 ALEXIS JOHNS [facility] Vaccines Viral Polio, Inactivated (Salk) Vaccines Viral Polio, Inactivated (Salk) 40450 2016 ALEXIS JOHNS [facility] Supervised Injection Intramuscular Antibiotic Supervised Injection Intramuscular Antibiotic 95294 2016 ALEXIS JOHNS [facility] Immunization Administration One Vaccine Immunization Administration One Vaccine 60838 2016 NAT [facility] Immunization Administration Each Additional Vaccine Immunization Administration Each Additional Vaccine 24504 2016 NAT [facility] Vaccines Viral Measles, Mumps and Rubella, Live Vaccines Viral Measles, Mumps and Rubella, Live 76447 2016 ALEXIS JOHNS [facility] Ophthalmological New Patient Start Intermediate Level Care Ophthalmological New Patient Start Intermediate Level Care 39675 2016 YAYA CARDENAS [facility] Serum Viral Antibody Rubella Serum Viral Antibody Rubella 20017 2016 BERNARDCAROLINA MONTAGUE [facility] Serum Viral Antibody Rubeola Serum Viral Antibody Rubeola 41862 2016 BERNARDCAROLINA MONTAGUE [facility] Serum Viral Antibody Varicella-Zoster Serum Viral Antibody Varicella-Zoster 17230 2016 [facility] Supervised Injection Intramuscular Antibiotic Supervised Injection Intramuscular Antibiotic 41187 2016 BERNARDCAROLINA MONTAGUE [facility] Vaccines Adenovirus Type 4 Live, For Oral Use Vaccines Adenovirus Type 4 Live, For Oral Use 56194 2016 BERNARDCAROLINA MONTAGUE [facility] Vaccines Adenovirus Type 7 Live, For Oral Use Vaccines Adenovirus Type 7 Live, For Oral Use 56335 2016 [facility] Serum Viral Antibody Immunoblot (Western Blot) HIV 1 & 2 Serum Viral Antibody Immunoblot (Western Blot) HIV 1 & 2 11004 2016 BERNARDCAROLINA MONTAGUE [facility] Serum Viral Antibody Mumps Serum Viral Antibody Mumps 13173 2016 [facility] Immunization Administration One Vaccine Immunization Administration One Vaccine 80061 2016 [place] BERNARD [facility] Skin Test Anergy Tuberculin Intradermal Skin Test Anergy Tuberculin Intradermal 82403 2016 [facility] Pneumococcal Polysaccharide Vaccine Adult Dos For Intramusc Pneumococcal Polysaccharide Vaccine Adult Dos For Intramusc 18819 2016 BERNARDCAROLINA MONTAGUE [facility] Meningococcal Polysaccharide Vaccine (Active) Meningococcal Polysaccharide Vaccine (Active) 52126 2016 [facility] Tdap Vaccine Seven Years Of Age And Above Tdap Vaccine Seven Years Of Age And Above 13114 2016 [facility] Hepatitis A And Hepatitis B (Intramuscular Use) Adult Dosage Hepatitis A And Hepatitis B (Intramuscular Use) Adult Dosage 58145 2016 [facility] Immunization Administration Each Additional Vaccine Immunization Administration Each Additional Vaccine 36260 2016 [facility] Supervised Injection Intramuscular Supervised Injection Intramuscular 79967 2016 [facility] Venipuncture Venipuncture 77515 2016 BERNARDCAROLINA MONTAGUE [facility] Collection Of Capillary Blood Specimen Collection Of Capillary Blood Specimen 89423 2016 BERNARDCAR[place] MONTAGUE [facility] Patient education, not otherwise cla ified, non-physician provider, group, per se ion 2016 MCKENZIE MILLER [facility] Audiometry Group Testing Audiometry Group Testing 45424 2016 MCKENZIE MILLER [facility] Physical Therapy Mobilization Joint Physical Therapy Mobilization Joint 46817 ISABEL COBURN A x 8 min TPT to L foot DoD Modalities Cryotherapy Cold Packs Modalities Cryotherapy Cold Packs 64830 ISABEL COBURN A x 15 min to L foot. [facility] Immunization Administration One Vaccine Immunization Administration One Vaccine 53019 DELFINO MCCLELLAN [facility] Closed Treatment Of Scapular Fracture Closed Treatment Of Scapular Fracture 02093 ROHIT HUBBARD [facility] Screening Test Of Visual Acuity, Quantitative, Bilateral Screening Test Of Visual Acuity, Quantitative, Bilateral 25641 DEANDRE ÁLVAREZ [facility] Physical Therapy: ___ Se ion Segments, 15 Minutes Each Physical Therapy: ___ Session Segments, 15 Minutes Each 94084 HUA CARDONA [facility] Exercise equipment BOSMYRNA CIFUENTES mini massage + texture stick [facility] Occupational Therapy Re-Evaluation Occupational Therapy Re-Evaluation [address] [facility] Exercises A isted Exercises For ROM Exercises Assisted Exercises For ROM [address] [facility] Exercise equipment [address] [facility] DrAryan-Supervised Services Provision Of Special Supplies DrAryan-Supervised Services Provision Of Special Supplies [address] Digit sleeve [facility] Patient education, not otherwise cla ified, non-physician provider, group, per se ion LEONA VALDEZ Threshold Audiogram (Pure Tone) Automated Threshold Audiogram (Pure Tone) Automated 0208T LEONA VALDEZ [facility] No data available for this section Ambulato ry Pharmacy Social History Combined list of available smoking, tobacco, and other social history from Department of Defense and Veterans Affairs facilities. Social History Type Response Date Comment Sourc e Tobacco smoking status NHIS VA-TOBACCO USE FORMER CIGARETTES 06/30/2024 [facility] History of tobacco use VA-TOBACCO USE EV MURRAY DAY OTHER TYPE 06/30/2024 [facility] History of tobacco use VA-TOBACCO FORMER USER 02/27/2023 [facility] Sex Representation Male (finding) 05/26/2020 Un known Organization This section is an empty social history section. DoD Tobacco Smoking tobacco use: vape. Type: Vaping. Ambulatory Pharmacy Sexual Orientation Ambula tory Pharmacy Gender identity Ambulator y Pharmacy Assessment and Plan Combined list of future [...] started 3. H ealth education given 12/14/[address] [place] [address] 13 [facility] Plan of Care List of future care activities from Department of Veterans Affairs facilities. Additional future care activities may be listed in the Assessment and Plan section. Date/Time Care Activity Care Activity Detail Facili ty 01/19/2025 AMBULATORY - PSYCHIATRY AMBULATORY - PSYC HIATRAraceli [facility] Functional Status Combined list of recent functional and cognitive assessments recorded at Department of Defense and Veterans Affairs (VA).[facility] Functional [place] Measurement (FIM) Scale: 1 = Total Assistance (Subject = 0% +), 2 = Maximal Assistance (Subject = 25% +), 3 = Moderate Assistance (Subject = 50% +), 4 = Minimal Assistance (Subject = 75% +), 5 = Supervision, 6 = Modified Marana (Device), 7 = Complete Marana (Timely, Safely). Assessment Date/Time Source Assessment Type Assessment Skill Assessment Score Assessment Details No data available for this section
[2024-12-14 13:20] VITALS: BP 123/80; PULSE 77; RESP 17; O2SAT 99
[2024-12-14 13:30] LABS: Basophils Absolute Auto 0.04 K/uL (0.00-0.30); Basophils Percent Auto 0.5 % (0.0-3.0); Eosinophils Absolute Auto 0.01 K/uL (0.00-0.50); Eosinophils Percent Auto 0.1 % (0.0-7.0); Hematocrit 42.8 % (37.0-53.0); Hemoglobin* 14.5 gm/dL (13.5-17.5); Immature Granulocytes Abs Auto 0.01 K/uL (0.00-0.30); Immature Granulocytes Pct Auto 0.1 %; Lymphocytes Percent Auto 18.9 % (20-44); Mean Corpuscular HGB Conc 34 gm/dL (32-36); Mean Corpuscular Hemoglobin 28 pg (26-34); Mean Corpuscular Volume 81 fL (80-100); Monocytes Percent Auto 6.4 % (0.0-11.0); Platelet Count* 313 K/uL (140-440); RDW Coefficient of Variation % 12.3 % (11.5-15.5); Red Blood Count 5.28 m/uL (4.30-5.90); White Blood Count* 8.34 K/uL (4.50-11.00)
[2024-12-14 13:36] LABS: Slide Review Reflex No
[2024-12-14 13:43] LABS: Chloride* 102 mmol/L (96-114); Sodium* 139 mmol/L (135-149)
[2024-12-14 13:44] LABS: Potassium* 3.7 mmol/L (3.6-5.1)
--- NOTE | 2024-12-14 13:45 | ED.GENADULT ---
HPI - General Adult General Date Seen: 12/14/24 Chief complaint: Arrhythmia/Palpitations Stated complaint: Chest pain Time Seen by Provider: 12/14/24 12:42 Source: patient Mode of arrival: ambulatory Limitations: no limitations History of Present Illness HPI narrative: Patient is a 24-year-old male presenting to the emergency department for sharp left-sided chest pain. He states is a pinpoint area in his chest as a sharp stabbing pain. This pain started today while he was working and shoveling. Symptoms improved after he rested. They have not completely gone away still states there are small pinpoint area that is sharp. It is nontender to palpation. Symptoms overall last several 3 or 4 hours. Denies associated shortness of breath, dizziness, lightheadedness, weakness, numbness, headache, fevers, chills, rhinorrhea, sick contacts, abdominal pain. Deep breaths does not seem to make the pain worse. Pain does not radiate anywhere. Does note he has history of AFib diagnosed in 2022 here in [place]. Had echocardiogram after that showing no concerning findings. He converted on his own after some medication. Cardioversion was not required. He has seen Cardiology for this and they did not find any abnormalities. Is does take metoprolol as needed for episodes of AFib. States they usually occur while he is actively doing something his most recent 1 was week or 2 ago after eating some ice cream and getting a brain freeze. States he did not feel like he was in AFib when this chest pain occurred. Denies recent surgeries, history of PE, unilateral leg swelling, hormone use. Related Data Home Medications ?Medication ?Instructions ?Recorded ?Confirmed cholecalciferol (vitamin D3) 25 25 mcg PO BID 04/05/23 12/14/24 mcg (1,000 unit) capsule fluticasone propionate 50 2 spray intranasal QDAY PRN 04/05/23 12/14/24 mcg/actuation nasal spray,suspension (Children's Flonase Allergy Relief) metoprolol succinate 25 mg 25 mg PO QDAY 04/05/23 12/14/24 tablet,extended release 24 hr celecoxib 200 mg capsule (Celebrex) 200 mg PO DAILY 12/14/24 12/14/24 duloxetine 30 mg capsule,delayed 30 mg PO DAILY 12/14/24 12/14/24 release sprinkle naltrexone 50 mg tablet 50 mg PO DAILY 12/14/24 12/14/24 omeprazole 20 mg capsule,delayed 20 mg PO DAILY 12/14/24 12/14/24 release Allergies Allergy/AdvReac Type Severity Reaction Status Date / Time No Known Drug Allergies Allergy Verified 12/14/24 12:22 Review of Systems Status of ROS: Reports: 10 or more systems reviewed and unremarkable except as noted in History and below [facility] Social History Smoking Status: Current some day smoker Do you use any of these nicotine containing products: None Second hand tobacco smoke exposure: No How often do you have a drink containing alcohol: monthly or less AUDIT-C Alcohol total score: 1 Non-prescribed substance use: marijuana (any form) Non-prescribed substance use details: some day use thc service: No Exam Narrative: Exam Narrative: Const: Well-nourished, Well-developed, in no distress Eyes: PERRL, no conjunctival injection, and symmetrical lids HENT: Atraumatic external nose and ears. Moist mucous membranes. Neck: Symmetric, trachea midline, No thyromegaly. CVS: RRR, No murmurs or gallops. Peripheral pulses 2+ and equal in all extremities RESP: Unlabored respiratory effort. Clear to auscultation bilaterally. GI: Nontender/Nondistended, No rebound or guarding. MSK:Extremities w/o deformity, Normal Active ROM, no chest pain tenderness Skin: Warm, Dry. No rashes or lesions. Neuro: Normal Muscle tone, No focal neurological deficits. Psych: Awake, Alert, & Oriented x3. Appropriate mood and affect. Const: Vital Signs, click to edit/add: Vital Signs - 24 hr 12/14/24 12:19 Temperature 96.0 F L Pulse Rate [Pulse Oximeter] 98 Respiratory Rate 18 Blood Pressure [Ri ght Upper Arm] 147/94 H Pulse Oximetry 96 Oxygen Delivery Me thod Room Air Course Vital Signs Vital signs: Initial Vital Signs Temperature 96.0 F L 12/14/24 12:19 Temperature Source Temporal Artery Scan 12/14/24 12:19 Pulse Rate 98 12/14/24 12:19 Pulse Rhythm Regular 12/14/24 12:19 Respiratory Rate 18 12/14/24 12:19 Blood Pressure 147/94 H 12/14/24 12:19 Blood Pressure Mean 111 H 12/14/24 12:19 Blood Pressure Position Sitting 12/14/24 12:19 Pulse Oximetry 96 12/14/24 12:19 Oxygen Delivery Method Room Air 12/14/24 12:19 Vital Signs Temperature 96.0 F L 12/14/24 12:19 Pulse Rate 98 12/14/24 12:19 Respiratory Rate 18 12/14/24 12:19 Blood Pressure 147/94 H 12/14/24 12:19 Pulse Oximetry 96 12/14/24 12:19 Oxygen Delivery Method Room Air 12/14/24 12:19 Temperature 96.0 F L 12/14/24 12:19 Pulse Rate 78 12/14/24 14:01 Respiratory Rate 15 12/14/24 14:01 Blood Pressure 116/77 12/14/24 14:01 Pulse Oximetry 97 12/14/24 14:01 Oxygen Delivery Method Room Air 12/14/24 12:19 Medical Decision Making MDM Narrative Medical decision making narrative: Patient is a 24-year-old male presenting to the emergency department for chest pain. Symptoms started while at work. The differential diagnosis of chest pain is broad and includes common etiologies such as musculoskeletal strain, GERD, pneumonia, etc. More serious etiologies considered include PE, coronary artery disease, pneumothorax, aortic dissection, aortic aneurysm. He is PERC negative and PE can not be ruled out. Will do EKG and troponins to look for signs of ACS or arrhythmia is. Chest x-ray ordered to look for signs of pneumonia or pneumothorax. He is otherwise stable my concern for a dissection or aortic aneurysm is low. Will order a CBC, BMP, viral swabs, magnesium. Lab work all returned showing no concerning abnormalities. Chest x-ray reviewed by myself the radiologist shows no concerning findings. Initial troponin and repeat troponin 2 hours later shows no acute concerning abnormalities. Considering symptoms 1st started at 07:00 so I do not believe further lab work is necessary. This pain could be musculoskeletal in nature specially with in starting well exerting himself with shoveling. He will be discharged. He is agreeable to this plan. Lab Data Labs: Lab Results 12/14/24 12/14/24 12/14/24 Range/Units 12:49 13:15 13:49 WBC 8.34 (4.50-11.00) K/uL RBC 5.28 (4.30-5.90) m/uL Hgb 14.5 (13.5-17.5) gm/dL Hct 42.8 (37.0-53.0) % MCV 81 (80-100) fL MCH 28 (26-34) pg MCHC 34 (32-36) gm/dL RDW Coeff of Rebecca 12.3 (11.5-15.5) % Plt Count 313 (140-440) K/uL Neut % (Auto) 74.0 H (42.0-72.0) % Lymph % (Auto) 18.9 L (20-44) % [place] % (Auto) 6.4 (0.0-11.0) % Eos % (Auto) 0.1 (0.0-7.0) % Baso % (Auto) 0.5 (0.0-3.0) % Neut # (Auto) 6.20 (1.7-7.0) K/uL Lymph # (Auto) 1.60 (0.90-2.90) K/uL [place] # (Auto) 0.50 (0.00-0.90) K/UL Eos # (Auto) 0.01 (0.00-0.50) K/uL Baso # (Auto) 0.04 (0.00-0.30) K/uL Abs Immat Gran (auto) 0.01 (0.00-0.30) K/uL Imm/Tot Granulo (auto) 0.1 % Sodium 139 (135-149) mmol/L Potassium 3.7 (3.6-5.1) mmol/L Chloride 102 (96-114) mmol/L Carbon Dioxide 24 (20-32) mmol/L Anion Gap 13 (7-15) mEq/L BUN 11 (5-24) mg/dL Creatinine 0.9 (0.5-1.5) mg/dL Estimated Creat Clear 124.38 Estimated GFR 121 ml/min Glucose 86 (60-115) mg/dL Calcium 9.5 (8.4-10.6) mg/dL Magnesium 2.0 (1.5-2.6) mg/dL SARS-CoV-2 (PCR) Negative SARS-CoV-2 (Negative) Influenza Type A (PCR) Negative PCR FLU A (Negative) Influenza Type B (PCR) Negative PCR FLU B (Negative) RSV (PCR) Negative PCR RSV (Negative) Lab Acknowledgement Test Added POC Troponin I 0.00 L (0.01-0.04) ng/ml 12/14/24 Range/Units 14:45 WBC (4.50-11.00) K/uL RBC (4.30-5.90) m/uL Hgb (13.5-17.5) gm/dL Hct (37.0-53.0) % MCV (80-100) fL MCH (26-34) pg MCHC (32-36) gm/dL RDW Coeff of Rebecca (11.5-15.5) % Plt Count (140-440) K/uL Neut % (Auto) (42.0-72.0) % Lymph % (Auto) (20-44) % [place] % (Auto) (0.0-11.0) % Eos % (Auto) (0.0-7.0) % Baso % (Auto) (0.0-3.0) % Neut # (Auto) (1.7-7.0) K/uL Lymph # (Auto) (0.90-2.90) K/uL [place] # (Auto) (0.00-0.90) K/UL Eos # (Auto) (0.00-0.50) K/uL Baso # (Auto) (0.00-0.30) K/uL Abs Immat Gran (auto) (0.00-0.30) K/uL Imm/Tot Granulo (auto) % Sodium (135-149) mmol/L Potassium (3.6-5.1) mmol/L Chloride (96-114) mmol/L Carbon Dioxide (20-32) mmol/L Anion Gap (7-15) mEq/L BUN (5-24) mg/dL Creatinine (0.5-1.5) mg/dL Estimated Creat Clear Estimated GFR ml/min Glucose (60-115) mg/dL Calcium (8.4-10.6) mg/dL Magnesium (1.5-2.6) mg/dL SARS-CoV-2 (PCR) (Negative) Influenza Type A (PCR) (Negative) Influenza Type B (PCR) (Negative) RSV (PCR) (Negative) Lab Acknowledgement POC Troponin I 0.00 L (0.01-0.04) ng/ml Imaging Data Chest x-ray: Attestation: I have reviewed the pertinent imaging results. Radiologist's impression: No evidence of acute cardiopulmonary disease. Dictated by Chaitanya Lujan MD @ 12/14/2024 1:20:19 PM ECG Data Attestation: I personally reviewed and interpreted this ECG as follows: Prior ECG tracings: available for review Interpretation: Normal sinus rhythm with a rate of 81 beats per minute, normal intervals, normal axis, no ST or T-wave abnormalities. Appears similar previous EKG on file Discharge Plan Discharge Clinical Impression: Atypical chest pain Patient Disposition: Home, Self-Care Condition: Stable Instructions: Noncardiac Chest Pain (ED) Additional Instructions: Cannot say exactly was causing chest pain at this time but I have ruled out all the emergent issues. It believe you should have close follow-up the primary care provider if symptoms persist. Return to emergency department for new or worsening symptoms. Prescriptions: No Action cholecalciferol (vitamin D3) 25 mcg (1,000 unit) capsule 25 mcg PO BID fluticasone propionate [Children's Flonase Allergy Rlf] 50 mcg/actuation spray,suspension 2 spray intranasal QDAY PRN Rx Instructions: administer into each nostril metoprolol succinate 25 mg tablet extended release 24 hr 25 mg PO QDAY Patient Comments: Pt states he only takes if needed for afib symptoms naltrexone 50 mg tablet 50 mg PO DAILY duloxetine 30 mg capsule, delayed rel sprinkle 30 mg PO DAILY celecoxib [Celebrex] 200 mg capsule 200 mg PO DAILY omeprazole 20 mg capsule,delayed release(DR/EC) 20 mg PO DAILY Follow Up/Referrals: Provider,Not a Local [Primary Care Provider] - Stand [facility] Inst[facility]
[2024-12-14 13:46] LABS: Blood Urea Nitrogen* 11 mg/dL (5-24); Creatinine* 0.9 mg/dL (0.5-1.5); Est. Creatinine Clearance* 124.38; Estimated Glomerular Filt Rate 121 ml/min
[2024-12-14 13:47] LABS: Anion Gap 13 mEq/L (7-15); Calcium* 9.5 mg/dL (8.4-10.6); Carbon Dioxide* 24 mmol/L (20-32); Glucose* 86 mg/dL (60-115)
[2024-12-14 14:01] VITALS: BP 116/77; PULSE 78; RESP 15; O2SAT 97
[2024-12-14 14:07] LABS: PCR FLU A Negative PCR FLU A (Negative); PCR FLU B Negative PCR FLU B (Negative); PCR RSV Negative PCR RSV (Negative); SARS PCR* Negative SARS-CoV-2 (Negative)
== END 2024-12-14 15:07 | disposition home or self-care (01) ==
PROVIDERS: Emergency Provider Student in an Organized Health Care Education/Training Program
DX: R07.9 Chest pain, unspecified (principal)
CPT/HCPCS: 36415; 71046; 80048; 83735; 84484; 85025; 87631; 93005; 99284

== ENCOUNTER 2025-06-03 09:06 | Outpatient (CLI) | payer BC, SELFPAY | END 2025-06-03 09:07 | disposition home or self-care (01) | PROVIDERS: PCP Family Medicine; Visit Provider Family Medicine | DX: E78.5 Hyperlipidemia, unspecified (principal); F10.11 Alcohol abuse, in remission; F33.1 Major depressive disorder, recurrent, moderate; F41.1 Generalized anxiety disorder; R63.4 Abnormal weight loss; Z86.39 Personal history of other endocrine, nutritional and metabolic disease | CPT/HCPCS: 80053; 80061; 82306; 82607; 82977; 84443; 86803 ==

== ENCOUNTER 2025-06-06 17:19 | Emergency (ER) | payer BC, OTHER, SELFPAY ==
[2025-06-06 17:33] VITALS: BP 94/64; PULSE 125; RESP 20; TEMP 36.7; O2SAT 98; BMI 28.4
--- NOTE | 2025-06-06 18:32 | ED.GENADULT ---
HPI - General Adult General Chief complaint: Arrhythmia/Palpitations Stated complaint: A-fib Time Seen by Provider: 06/06/25 18:04 Source: patient Mode of arrival: ambulatory Limitations: no limitations History of Present Illness HPI narrative: 25 year male presenting today with concerns of atrial fibrillation. Patient states that he has history of paroxysmal atrial fibrillation and used to have it a lot when he drink more heavily. He states that he has not drank for a while but he did have 2 alcoholic beverages today. He started feeling nauseated and vomited. When he vomited he felt his heart go into atrial fibrillation. He was in AFib for approximately 2 hours. During this time he felt lightheaded and nauseated. By the time he was roomed he had converted to normal sinus rhythm. Patient states that he feels fine. He denies any chest pain, shortness of breath, dizziness or lightheadedness. Related Data Home Medications ?Medication ?Instructions ?Recorded ?Confirmed cholecalciferol (vitamin D3) 25 25 mcg PO BID 04/05/23 06/03/25 mcg (1,000 unit) capsule fluticasone propionate 50 2 spray intranasal QDAY PRN 04/05/23 06/03/25 mcg/actuation nasal spray,suspension (Children's Flonase Allergy Relief) celecoxib 200 mg capsule (Celebrex) 200 mg PO DAILY 12/14/24 06/03/25 duloxetine 30 mg capsule,delayed 30 mg PO DAILY 12/14/24 06/03/25 release sprinkle omeprazole 20 mg capsule,delayed 20 mg PO DAILY 12/14/24 06/03/25 release metoprolol succinate 25 mg 25 mg PO QDAY PRN 06/03/25 06/03/25 tablet,extended release 24 hr Allergies Allergy/AdvReac Type Severity Reaction Status Date / Time No Known Drug Allergies Allergy Verified 06/03/25 08:27 Review of Systems Status of ROS: Reports: 10 or more systems reviewed and unremarkable except as noted in History and below [facility] Medical History History of vitamin D deficiency ?Z86.39 - Personal history of other endocrine, nutritional and metabolic disease (ICD-10) Depression ?F32.A - Depression, unspecified (ICD-10) Hyperlipidemia ?E78.5 - Hyperlipidemia, unspecified (ICD-10) MIKE (generalized anxiety disorder) ?F41.1 - Generalized anxiety disorder (ICD-10) GERD (gastroesophageal reflux disease) ?K21.9 - Gastro-esophageal reflux disease without esophagitis (ICD-10) Allergic rhinitis ?J30.9 - Allergic rhinitis, unspecified (ICD-10) History of alcohol abuse ?F10.11 - Alcohol abuse, in remission (ICD-10) DC (obstructive sleep apnea) (2020) ?G47.33 - Obstructive sleep apnea (adult) (pediatric) (ICD-10) Paroxysmal atrial fibrillation ?I48.0 - Paroxysmal atrial fibrillation (ICD-10) Surgical History H/O left wrist surgery (2011) ?Z98.890 - Other specified postprocedural states (ICD-10) Family History Father Alcohol dependence Mother Alcohol dependence Depression Diabetes Sister ADHD Social History Narrative: Single, lives with girlfriend, 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 No kids. [place] No formal exercise Nonsmoker quit in 2020 for pack years Rare alcohol use, alcohol abuse until January 2025 ( 12 PACK DAILY) History of drug abuse (cocaine LSD) use quit 2021 What is your current living situation?: I presently have a place to live Problems where you live: declined to answer In the past 12 months, utilities in danger of being shut off: no In past 12 months, lack of transportation kept you from medical appts, meetings, work, or getting things needed for daily living: no In the past 12 mos, have been you worried that your food would run out before you had money to buy more?: never true In the past 12 mos, the food you bought just didn't last and you didn't have money to buy more?: never true Smoking Status: Current some day smoker Do you use any of these nicotine containing products: None Second hand tobacco smoke exposure: No How often do you have a drink containing alcohol: monthly or less AUDIT-C Alcohol total score: 1 Non-prescribed substance use: marijuana (any form) Non-prescribed substance use details: some day use thc How often does anyone, including family, friends and others, physically hurt you: rarely How often does anyone, including family, friends and others, insult or talk down to you: sometimes How often does anyone, including family, friends and others, threaten you with harm: never How often does anyone, including family, friends and others, scream or curse at you: rarely service: No Health Related Social Needs: Other personal risk factors, not elsewhere classified (Z91.89) Exam Narrative: Exam Narrative: Well-nourished well-developed patient in no acute distress. Alert and oriented. Answers questions appropriately. Mood and affect are appropriate. Thoughts are goal oriented and rational. No tangential or magical thinking noted. Patient speaks in full sentences without needing to catch his breath. HEENT: Normocephalic atraumatic. Pupils are equally round reactive to light. Extraocular muscles are intact. Conjunctivae are moist without any icterus noted. Slightly dry mucous membranes. Posterior pharynx is normal. Cardiovascular: Heart is regular rate and rhythm S1 and S2 are present without any murmurs. Lungs: Clear to auscultation bilaterally no wheezes rhonchi or rales are appreciated. Patient takes deep breaths without any discomfort. Abdomen: Soft and nontender nondistended with normal bowel sounds. Extremities: Bilateral lower extremities are without edema. Skin: Well perfused. Const: Vital Signs, click to edit/add: Vital Signs - 24 hr 06/06/25 17:33 06/06/25 19:10 Temperature 98.1 F Pulse Rate 89 Pulse Rate [Pulse Oximeter] 125 H Respiratory Rate 20 16 Blood Pressure 110/72 Blood Pressure [Ri ght Upper Arm] 94/64 Pulse Oximetry 98 98 Oxygen Delivery Me thod Room Air Room Air Course Course ED Course: Given his alcohol use today, vomiting and mild tachycardia even in normal sinus rhythm with his pulse is in the upper 90s to 101, I did give him a L of normal saline. His pulse did come down into the mid to upper 80s. Patient felt better in general. Vital Signs Vital signs: Initial Vital Signs Temperature 98.1 F 06/06/25 17:33 Temperature Source Temporal Artery Scan 06/06/25 17:33 Pulse Rate 125 H 06/06/25 17:33 Pulse Rhythm Irregular 06/06/25 17:33 Respiratory Rate 20 06/06/25 17:33 Blood Pressure 94/64 06/06/25 17:33 Blood Pressure Mean 74 06/06/25 17:33 Blood Pressure Position Sitting 06/06/25 17:33 Pulse Oximetry 98 06/06/25 17:33 Oxygen Delivery Method Room Air 06/06/25 17:33 Vital Signs Temperature 98.1 F 06/06/25 17:33 Pulse Rate 125 H 06/06/25 17:33 Respiratory Rate 20 06/06/25 17:33 Blood Pressure 94/64 06/06/25 17:33 Pulse Oximetry 98 06/06/25 17:33 Oxygen Delivery Method Room Air 06/06/25 17:33 Temperature 98.1 F 06/06/25 17:33 Pulse Rate 89 06/06/25 19:10 Respiratory Rate 16 06/06/25 19:10 Blood Pressure 110/72 06/06/25 19:10 Pulse Oximetry 98 06/06/25 19:10 Oxygen Delivery Method Room Air 06/06/25 19:10 Medications Administered Medications: Generic Name Dose Route Start Last Admin Trade Name Freq PRN Reason Stop Dose Admin Sodium Chloride 1,000 mls @ 1,000 mls/hr 06/06/25 18:30 06/06/25 18:47 0.9 % Sodium Chloride 1000 Ml IV 06/06/25 19:29 1,000 mls/hr .Q1H MIREYA Administration Medical Decision Making MDM Narrative Medical decision making narrative: [age] year male with paroxysmal atrial fibrillation, alcohol use, dehydration. Discharge Plan Discharge Clinical Impression: AF (paroxysmal atrial fibrillation) Patient Disposition: Home, Self-Care Condition: Improved Additional Instructions: Make sure that you are staying well hydrated, abstain from alcohol and get a good night sleep today. If you go into atrial fibrillation in the future you should return to the emergency room sooner rather than later especially if you are feeling dizzy, lightheaded or short of breath. Prescriptions: No Action cholecalciferol (vitamin D3) 25 mcg (1,000 unit) capsule 25 mcg PO BID fluticasone propionate [Children's Flonase Allergy Rlf] 50 mcg/actuation spray,suspension 2 spray intranasal QDAY PRN Rx Instructions: administer into each nostril metoprolol succinate 25 mg tablet extended release 24 hr 25 mg PO QDAY PRN Patient Comments: Pt states he only takes if needed for afib symptoms duloxetine 30 mg capsule, delayed rel sprinkle 30 mg PO DAILY celecoxib [Celebrex] 200 mg capsule 200 mg PO DAILY omeprazole 20 mg capsule,delayed release(DR/EC) 20 mg PO DAILY Follow Up/Referrals: Sabrina Byrd MD [Primary Care Provider, Family Practice] Stand Alone Forms: [employer] Info Instructions
[2025-06-06 19:10] VITALS: BP 110/72; PULSE 89; RESP 16; O2SAT 98
== END 2025-06-06 19:37 | disposition home or self-care (01) ==
PROVIDERS: Emergency Provider Family Medicine; PCP Family Medicine
DX: I48.0 Paroxysmal atrial fibrillation (principal); E86.0 Dehydration; Z87.891 Personal history of nicotine dependence
CPT/HCPCS: 96360; 99284; J7030